=== PATIENT | male | born 1990 | race Caucasian/White ===

== ENCOUNTER 2024-08-06 10:07 | Inpatient (IN) ==
[2024-08-06] MEDS ORDERED: HYDROmorphone INJ 0.5 MG/0.5 ML SYR IV PRN (11:13)
--- NOTE | 2024-08-06 11:16 | XRay Report ---
XR chest 1V portable HISTORY: 34 years-old Male Sepsis COMPARISON: None TECHNIQUE: AP view of the chest FINDINGS: Cardiac silhouette is normal. No pneumothorax or large pleural effusion. Bilateral reticulonodular de nsities with linear peripheral left basilar and bilateral midlung densities. Bones appear grossly int act. IMPRESSION: Findings suggestive of multifocal pneumonia. Follow-up imaging after treatment course rec ommended in order to document resolution. ACT 112: Negative or not required by law. The above report was generated using voice recognition software. It may contain grammatical, syntax o r spelling errors. Electronically signed by: Jaden Romero M.D. 08/06/2024 11:14 AM
[2024-08-06 11:17] LABS: Hematocrit (blood only) 27.3 % (42.0-52.0); Hemoglobin 8.3 g/dl (14.0-18.0); Immature Granulocytes # (auto) 0.27 K/uL (0.01-0.20); Immature Granulocytes % (auto) 1.7 %; Mean Corpuscular Hemoglobin 21.4 pg (25.0-34.0); Mean Corpuscular Volume 70.4 fL (80.0-100.0); Platelet Count 828 K/uL (130-400); RDW Standard Deviation 48.3 fL (36.4-46.3); Red Blood Count 3.88 M/uL (4.70-6.10); White Blood Count 15.98 K/ul (4.8-10.8)
[2024-08-06] MEDS: HYDROmorphone INJ 0.5 MG/0.5 ML SYR IV STA (11:20)
[2024-08-06] MEDS: SODIUM CHLORIDE 0.9% 1,000 ML IV SCH (11:20)
[2024-08-06] MEDS: ONDANSETRON INJ 2 MG/ML 2 ML VIAL IV STA (11:21)
[2024-08-06] MEDS: KETOROLAC TROMETHAMINE 15 MG/ML VIAL IV STA (11:21)
[2024-08-06] MEDS: ACETAMINOPHEN 500 MG TAB PO STA (11:21)
--- NOTE | 2024-08-06 11:21 | Emergency Department Note ---
Impression & Plan Pleuritic chest pain, Hypomagnesemia, Pulmonary emboli, SOB (shortness of breath), Pneumonia, Tachycardia, Anemia ED Provider Note NAME: MARÍA ELENA NEWSOME AGE: 34 SEX: M : 1990 ARRIVES VIA: Ambulance INFORMANT: [Patient] ED PROVIDER(S): [Del Encinas MD] CHIEF COMPLAINT: Shortness of breath, rib pain HISTORY OF PRESENT ILLNESS: Patient is a 34-year-old male who presents to the ER with bilateral rib pain, shortness of breath and fever. The patient is currently at the [facility]. The patient had been admitted to [facility]. He had overdosed and was intubated, he had aspirated. He was found to have pneumonia and recently finished his antibiotics. The patient states that he feels terrible. He has rib pain, he is short of breath, he is coughing. He was noted to have a fever upon arrival at this ED. The patient is an alcoholic. He states he had fallen off the wagon and had too much to drink, this led to the hospitalization at [facility]. PMHx/PSHx/Social Hx: See Below PHYSICAL EXAM: GENERAL: Patient is in moderate distress from pain. HEENT: No acute trauma, normocephalic atraumatic, mucous membranes dry, no nasal congestion. NECK: No stridor, no adenopathy, no meningismus, trachea is midline. LUNGS: Decreased breath sounds on the left with some crackles on the left, the right lung is clear. He has an increased respiratory rate. HEART: Tachycardic, regular rhythm, no murmurs. ABDOMEN: Soft, nontender, no peritonitis. EXTREMITIES: No cyanosis, full range of motion of all the joints without pain or difficulty. NEUROLOGIC: Oriented x 3, no acute motor or sensory deficits, no focal weakness. SKIN: No jaundice, no diaphoresis. Pale. DIFFERENTIAL DIAGNOSIS: Bacteremia or sepsis, pneumonia, PE, viral illness, dehydration, among others. EMERGENCY DEPARTMENT PROCEDURES: MEDICAL DECISION MAKING: There is a moderate leukocytosis, this certainly could be consistent with infection. The patient is anemic with a hemoglobin of 8.3, apparently, his hemoglobin has been running at this low level since his hospitalization at [facility]. Platelet count is quite high at 828. A bandemia is present on the CBC differential. INR is slightly high at 1.3. VBG does not show any acidosis or CO2 retention. No renal failure. Magnesium was low at 1.3. Lactic acid level was elevated consistent with infection and/or dehydration. There were some liver enzyme elevations, the bilirubin was not elevated. Patient appeared to be in a euthyroid state. Urinalysis did not show infection. Respiratory bio fire was negative. Chest x-ray shows a left lung pneumonia. Chest CT showed multifocal pneumonia as well as pulmonary emboli. On exam, the patient was pale, febrile and tachycardic. He had an increased respiratory rate and pain with inspiration. The patient was aggressively managed given his presentation. He was given IV saline, he received 2 L. This should suffice for 30 cc/kg of saline for sepsis protocol based on his actual body weight. The patient's tachycardia improved after the IV saline, he did not become hypotensive. His lactic acid level seemed to be improving. The patient received IV Dilaudid for pain, IV Zofran for nausea. He was given IV magnesium and IV Toradol. He was given IV cefepime as empiric antibiotic coverage. He was given oral Tylenol. He was given a DuoNeb. He was eventually given an IV heparin bolus and placed on a heparin drip. The patient does feel better since his treatment here in the ED. Given his findings, he is in need of a hospital stay. His dyspnea and pleuritic discomfort is secondary to his pneumonia as well as his pulmonary emboli. For now, he does not require a red blood cell transfusion, the hemoglobin will need to be closely followed. I did speak with the patient and case management, the on-call hospitalist was consulted. Prior/Outside records/notes reviewed: None ECG per my interpretation: Indication was tachycardia. The ECG shows a sinus tachycardia with a rate of 126. There is no ST elevation, no PVCs. The QTc is 428. Continuous Cardiac Monitoring per my interpretation: An order was placed for continuous cardiac monitoring. The monitor shows a rate of 129 with sinus tachycardia. Imaging/x-ray results per my interpretation: Chest x-ray shows a left lower lung pneumonia. No pneumothorax. Chronic Medical/Social conditions affecting care: Currently admitted at the [facility]. Care/Management discussed with: Case management, the on-call hospitalist. Level of care consideration(s): After review of the information above and other included data: --I believe the patient requires escalation of care to admission Critical Care Note: I have personally spent 61 minutes of critical care time in the direct management of this patient. This includes bedside care, interpretation of diagnostic studies, and testing, discussion with consultants, patient, and family members, and other required patient management activities. This 61 minutes is in excess of all separately billable procedures. DISPOSITION: Admission Past Med/Surg History Problem List (Updated 08/06/24 @ 17:06 by Del Encinas MD) Anemia (Acute) Tachycardia (Acute) Pneumonia (Acute) SOB (shortness of breath) (Acute) Pulmonary emboli (Acute) Hypomagnesemia (Acute) Pleuritic chest pain (Acute) Pulmonary abscess Hypomagnesemia BECKA (generalized anxiety disorder) Severe sepsis Empyema Cavitary lesion of lung HAP (hospital-acquired pneumonia) Medical History Depression Social History Smoking Status: Current some day smoker Tobacco Type: Cigars Cigarettes Per Day: 1 per week; Hx Alcohol Use: Yes (last drink 07/25, sober before that) Hx Substance Use: No Preferred Language: Lao Communication Ability: Effective Car Filler Required: No Beliefs That Will Affect Care: None Current Living Situation: Alone Feels Safe at Home: Yes Allergies Allergies Allergy/AdvReac Type Severity Reaction Status Date / Time naproxen Allergy Rash Verified 08/06/24 13:57 Home Meds Home Medications Medication Instructions Recorded Confirmed acetaminophen 325 mg tablet 650 mg PO Q6H PRN Pain 08/06/24 08/06/24 (Tylenol) benzonatate 100 mg capsule 100 mg PO TID PRN Cough 08/06/24 08/06/24 calcium carbonate (Calcium 500) 1,000 mg PO TID PRN Gastric 08/06/24 08/06/24 Distress dextromethorphan-guaifenesin 10 10 ml PO Q6H PRN Cough 08/06/24 08/06/24 mg-200 mg/5 mL oral liquid escitalopram oxalate 5 mg tablet 5 mg PO DAILY 08/06/24 08/06/24 lisinopril 2.5 mg tablet 2.5 mg PO DAILY 08/06/24 08/06/24 melatonin 3 mg tablet 3 mg PO HS 08/06/24 08/06/24 metoprolol tartrate 25 mg tablet 12.5 mg PO Q12H 08/06/24 08/06/24 nicotine (polacrilex) 2 mg gum 4 mg buccal Q4H PRN Each Smoking 08/06/24 08/06/24 (Nicorette) Break omeprazole 40 mg capsule,delayed 40 mg PO BID 08/06/24 08/06/24 release oxycodone 5 mg tablet 5 mg PO Q6H PRN Pain 08/06/24 08/06/24 sennosides 8.6 mg tablet (senna) 8.6 mg PO DAILY PRN Constipation 08/06/24 08/06/24 trazodone 50 mg tablet 50 mg PO HS 08/06/24 08/06/24 Results & Data (ED) Vital Signs Vital Signs - 24 hr 08/06/24 10:00 08/06/24 10:00 08/06/24 10:13 Temperature 38.0 C H Temperature Source Oral Pulse Rate 132 H Pulse Rate [Apical] Respiratory Rate 16 Respiratory Effort / Characteristics Non-Labored Spontaneous Non-Labored Spontaneous Respiratory Depth Normal Normal Respiratory Pattern Regular Blood Pressure 133/79 Blood Pressure [Left Radial Artery] Blood Pressure Mean 97 Blood Pressure Mean [Left Radial Artery] Pulse Oximetry 100 97 Oxygen Delivery Method Room Air Room Air Room Air Sepsis Recent Fever Within 48 Hours Yes Sepsis New/Unexplained Change in Mental Status No Sepsis Action Taken by Nursing No Action Required 08/06/24 10:47 08/06/24 10:57 08/06/24 11:00 Temperature Temperature Source Pulse Rate 123 H 128 H Pulse Rate [Apical] 128 H Respiratory Rate 16 16 Respiratory Effort / Characteristics Non-Labored Spontaneous Respiratory Depth Normal Respiratory Pattern Blood Pressure Blood Pressure [Left Radial Artery] 97/80 L Blood Pressure Mean Blood Pressure Mean [Left Radial Artery] 85 Pulse Oximetry 98 98 Oxygen Delivery Method Room Air Room Air Sepsis Recent Fever Within 48 Hours Sepsis New/Unexplained Change in Mental Status Sepsis Action Taken by Nursing 08/06/24 11:15 08/06/24 11:30 08/06/24 11:45 Temperature Temperature Source Pulse Rate Pulse Rate [Apical] 124 H 116 H 116 H Respiratory Rate 22 24 20 Respiratory Effort / Characteristics Non-Labored Spontaneous Non-Labored Spontaneous Non-Labored Spontaneous Respiratory Depth Normal Normal Normal Respiratory Pattern Regular Blood Pressure Blood Pressure [Left Radial Artery] 114/91 100/75 110/72 Blood Pressure Mean Blood Pressure Mean [Left Radial Artery] 98 83 84 Pulse Oximetry 100 97 96 Oxygen Delivery Method Room Air Room Air Room Air Sepsis Recent Fever Within 48 Hours Sepsis New/Unexplained Change in Mental Status Sepsis Action Taken by Nursing 08/06/24 12:00 08/06/24 12:30 08/06/24 12:45 Temperature Temperature Source Pulse Rate Pulse Rate [Apical] 119 H 117 H 129 H Respiratory Rate 20 20 22 Respiratory Effort / Characteristics Non-Labored Spontaneous Non-Labored Spontaneous Non-Labored Spontaneous Respiratory Depth Normal Normal Normal Respiratory Pattern Regular Blood Pressure Blood Pressure [Left Radial Artery] 114/74 100/71 101/67 Blood Pressure Mean Blood Pressure Mean [Left Radial Artery] 87 80 78 Pulse Oximetry 96 95 98 Oxygen Delivery Method Room Air Room Air Room Air Sepsis Recent Fever Within 48 Hours Sepsis New/Unexplained Change in Mental Status Sepsis Action Taken by Nursing 08/06/24 13:00 08/06/24 14:00 Temperature 37.1 C Temperature Source Oral Pulse Rate Pulse Rate [Apical] 122 H Respiratory Rate 22 Respiratory Effort / Characteristics Non-Labored Spontaneous Respiratory Depth Shallow Respiratory Pattern Regular Blood Pressure Blood Pressure [Left Radial Artery] 95/65 L Blood Pressure Mean Blood Pressure Mean [Left Radial Artery] 75 Pulse Oximetry 99 Oxygen Delivery Method Room Air Sepsis Recent Fever Within 48 Hours Sepsis New/Unexplained Change in Mental Status Sepsis Action Taken by Usp Medications Current Medication List: was personally reviewed by me Laboratory Data Attestation: I reviewed the patient's lab results. 08/06/24 10:31 08/06/24 12:13 Lab Results 08/06/24 08/06/24 08/06/24 Range/Units 10:31 11:15 11:25 WBC 15.98 H (4.8-10.8) K/ul RBC 3.88 L (4.70-6.10) M/uL Hgb 8.3 L (14.0-18.0) g/dl Hct 27.3 L (42.0-52.0) % MCV 70.4 L (80.0-100.0) fL MCH 21.4 L (25.0-34.0) pg MCHC 30.4 L (32.0-36.0) g/dL RDW Std Deviation 48.3 H (36.4-46.3) fL RDW Coeff of Betsy 19.8 H (11.5-14.5) % Plt Count 828 H (130-400) K/uL MPV 9.2 L (9.4-12.4) fL Immature Gran % (Auto) 1.7 % Neut % (Auto) 83.7 % Lymph % (Auto) 5.9 % Maries % (Auto) 7.7 % Eos % (Auto) 0.6 % Baso % (Auto) 0.4 % Neut # (Auto) 13.37 H (1.40-6.50) K/uL Lymph # (Auto) 0.95 L (1.20-3.40) K/uL Maries # (Auto) 1.23 H (0.11-0.59) K/uL Eos # (Auto) 0.10 (0.00-0.50) K/uL Baso # (Auto) 0.06 (0.00-0.20) K/uL Immature Gran # (Auto) 0.27 H (0.01-0.20) K/uL PT Cancelled INR Cancelled APTT Cancelled PTT Ratio Cancelled VBG pH 7.48 H (7.36-7.41) VBG pCO2 30 L (38-50) mmHg VBG pO2 < 20 mmHg VBG HCO3 22 mmol/L VBG O2 Saturation < 60.0 % VBG Base Excess -0.8 mEq/L Sodium 133 L (136-145) mmol/L Potassium TNP Chloride 100 (98-107) mmol/L Carbon Dioxide 23 (21-32) mmol/L Anion Gap 10 (3-11) BUN 10 (6-23) mg/dl Creatinine 0.78 (0.6-1.4) mg/dl Est Cr Clr Drug Dosing 113.9 ml/min eGFR 118.53 BUN/Creatinine Ratio 12.8 (10-20) Glucose 124 H (70-99(Fasting)) mg/dl Lactate 3.0 H* (0.4-2.0) mmol/L Calcium 9.1 (8.6-10.3) mg/dl Magnesium 1.3 L (1.7-2.4) mg/dl Total Bilirubin 0.5 (0.2-1.0) mg/dl Direct Bilirubin TNP AST TNP ALT 99 H (7-52) U/L Alkaline Phosphatase 139 H (34-104) U/L Troponin I High Sens 7.5 (0-20) pg/ml Total Protein 8.3 (6.0-8.3) gm/dl Albumin 3.5 (3.4-5.0) gm/dl Procalcitonin 0.18 (0-0.5) ng/ml Adenovirus (PCR) Not Detected (NotDetected) B. pertussis DNA (PCR) Not Detected (NotDetected) B.parapertussis DNA PCR Not Detected (NotDetected) C. pneumoniae DNA (PCR) Not Detected (NotDetected) Coronavirus OC43 (PCR) Not Detected (NotDetected) Coronavirus HKU1 (PCR) Not Detected (NotDetected) Coronavirus 229E (PCR) Not Detected (NotDetected) SARS-CoV-2 (PCR) Not Detected (NotDetected) Coronavirus NL63 (PCR) Not Detected (NotDetected) Human Metapneumovir PCR Not Detected (NotDetected) Influenza Type A (PCR) Not Detected (NotDetected) Influenza Type B (PCR) Not Detected (NotDetected) M. pneumoniae (PCR) Not Detected (NotDetected) Parainfluenza 1 (PCR) Not Detected (NotDetected) Parainfluenza 2 (PCR) Not Detected (NotDetected) Parainfluenza 3 (PCR) Not Detected (NotDetected) Parainfluenza 4 (PCR) Not Detected (NotDetected) RSV (PCR) Not Detected (NotDetected) Entero/Rhino (PCR) Not Detected (NotDetected) Blood Type Blood Type Recheck Antibody Screen 08/06/24 08/06/24 08/06/24 Range/Units 12:13 12:14 13:08 WBC (4.8-10.8) K/ul RBC (4.70-6.10) M/uL Hgb (14.0-18.0) g/dl Hct (42.0-52.0) % MCV (80.0-100.0) fL MCH (25.0-34.0) pg MCHC (32.0-36.0) g/dL RDW Std Deviation (36.4-46.3) fL RDW Coeff of Betsy (11.5-14.5) % Plt Count (130-400) K/uL MPV (9.4-12.4) fL Immature Gran % (Auto) % Neut % (Auto) % Lymph % (Auto) % Maries % (Auto) % Eos % (Auto) % Baso % (Auto) % Neut # (Auto) (1.40-6.50) K/uL Lymph # (Auto) (1.20-3.40) K/uL Maries # (Auto) (0.11-0.59) K/uL Eos # (Auto) (0.00-0.50) K/uL Baso # (Auto) (0.00-0.20) K/uL Immature Gran # (Auto) (0.01-0.20) K/uL PT 13.5 H INR 1.3 H APTT 25 PTT Ratio 0.9 VBG pH (7.36-7.41) VBG pCO2 (38-50) mmHg VBG pO2 mmHg VBG HCO3 mmol/L VBG O2 Saturation % VBG Base Excess mEq/L Sodium (136-145) mmol/L Potassium 4.1 Chloride (98-107) mmol/L Carbon Dioxide (21-32) mmol/L Anion Gap (3-11) BUN (6-23) mg/dl Creatinine (0.6-1.4) mg/dl Est Cr Clr Drug Dosing ml/min eGFR BUN/Creatinine Ratio (10-20) Glucose (70-99(Fasting)) mg/dl Lactate (0.4-2.0) mmol/L Calcium (8.6-10.3) mg/dl Magnesium (1.7-2.4) mg/dl Total Bilirubin (0.2-1.0) mg/dl Direct Bilirubin 0.2 AST 51 H ALT (7-52) U/L Alkaline Phosphatase (34-104) U/L Troponin I High Sens (0-20) pg/ml Total Protein (6.0-8.3) gm/dl Albumin (3.4-5.0) gm/dl Procalcitonin (0-0.5) ng/ml Adenovirus (PCR) (NotDetected) B. pertussis DNA (PCR) (NotDetected) B.parapertussis DNA PCR (NotDetected) C. pneumoniae DNA (PCR) (NotDetected) Coronavirus OC43 (PCR) (NotDetected) Coronavirus HKU1 (PCR) (NotDetected) Coronavirus 229E (PCR) (NotDetected) SARS-CoV-2 (PCR) (NotDetected) Coronavirus NL63 (PCR) (NotDetected) Human Metapneumovir PCR (NotDetected) Influenza Type A (PCR) (NotDetected) Influenza Type B (PCR) (NotDetected) M. pneumoniae (PCR) (NotDetected) Parainfluenza 1 (PCR) (NotDetected) Parainfluenza 2 (PCR) (NotDetected) Parainfluenza 3 (PCR) (NotDetected) Parainfluenza 4 (PCR) (NotDetected) RSV (PCR) (NotDetected) Entero/Rhino (PCR) (NotDetected) Blood Type A Positive Blood Type Recheck A Positive Antibody Screen NEGATIVE 08/06/24 Range/Units 13:12 WBC (4.8-10.8) K/ul RBC (4.70-6.10) M/uL Hgb (14.0-18.0) g/dl Hct (42.0-52.0) % MCV (80.0-100.0) fL MCH (25.0-34.0) pg MCHC (32.0-36.0) g/dL RDW Std Deviation (36.4-46.3) fL RDW Coeff of Betsy (11.5-14.5) % Plt Count (130-400) K/uL MPV (9.4-12.4) fL Immature Gran % (Auto) % Neut % (Auto) % Lymph % (Auto) % Maries % (Auto) % Eos % (Auto) % Baso % (Auto) % Neut # (Auto) (1.40-6.50) K/uL Lymph # (Auto) (1.20-3.40) K/uL Maries # (Auto) (0.11-0.59) K/uL Eos # (Auto) (0.00-0.50) K/uL Baso # (Auto) (0.00-0.20) K/uL Immature Gran # (Auto) (0.01-0.20) K/uL PT INR APTT PTT Ratio VBG pH (7.36-7.41) VBG pCO2 (38-50) mmHg VBG pO2 mmHg VBG HCO3 mmol/L VBG O2 Saturation % VBG Base Excess mEq/L Sodium (136-145) mmol/L Potassium Chloride (98-107) mmol/L Carbon Dioxide (21-32) mmol/L Anion Gap (3-11) BUN (6-23) mg/dl Creatinine (0.6-1.4) mg/dl Est Cr Clr Drug Dosing ml/min eGFR BUN/Creatinine Ratio (10-20) Glucose (70-99(Fasting)) mg/dl Lactate 2.3 H* (0.4-2.0) mmol/L Calcium (8.6-10.3) mg/dl Magnesium (1.7-2.4) mg/dl Total Bilirubin (0.2-1.0) mg/dl Direct Bilirubin AST ALT (7-52) U/L Alkaline Phosphatase (34-104) U/L Troponin I High Sens (0-20) pg/ml Total Protein (6.0-8.3) gm/dl Albumin (3.4-5.0) gm/dl Procalcitonin (0-0.5) ng/ml Adenovirus (PCR) (NotDetected) B. pertussis DNA (PCR) (NotDetected) B.parapertussis DNA PCR (NotDetected) C. pneumoniae DNA (PCR) (NotDetected) Coronavirus OC43 (PCR) (NotDetected) Coronavirus HKU1 (PCR) (NotDetected) Coronavirus 229E (PCR) (NotDetected) SARS-CoV-2 (PCR) (NotDetected) Coronavirus NL63 (PCR) (NotDetected) Human Metapneumovir PCR (NotDetected) Influenza Type A (PCR) (NotDetected) Influenza Type B (PCR) (NotDetected) M. pneumoniae (PCR) (NotDetected) Parainfluenza 1 (PCR) (NotDetected) Parainfluenza 2 (PCR) (NotDetected) Parainfluenza 3 (PCR) (NotDetected) Parainfluenza 4 (PCR) (NotDetected) RSV (PCR) (NotDetected) Entero/Rhino (PCR) (NotDetected) Blood Type Blood Type Recheck Antibody Screen Administered Medications Benzonatate (Benzonatate 100 Mg Capsule) 100 mg PO TID PRN PRN Reason: Cough Stop: 09/05/24 15:46 Last Admin: 08/06/24 16:13 Dose: 100 mg Documented By: DUARTE Escitalopram Oxalate (Escitalopram Oxalate 10 Mg Tab) 5 mg PO DAILY JF Stop: 09/06/24 08:59 Last Admin: 08/06/24 16:13 Dose: 5 mg Documented By: DUARTE Piperacillin Sod/Tazobactam Sod (Zosyn) 4.5 gm in 100 mls @ 25 mls/hr IV NOW ONE; Protocol Stop: 08/06/24 18:14 Last Admin: 08/06/24 14:43 Dose: 25 mls/hr Documented By: RUSH Heparin Sodium/Dextrose (Heparin 59211 Unit/500 Ml D5w) 25,000 units in 500 mls @ 23 mls/hr IV .[id number] JF; Protocol Stop: 09/05/24 16:14 Last Admin: 08/06/24 16:49 Dose: 1,150 units/hr, 23 mls/hr Documented By: LATISHA Co-signed By: AM Metoprolol Tartrate (Metoprolol Tartrate 25 Mg Tab) 12.5 mg PO Q12H [facility] Stop: 09/05/24 15:46 Last Admin: 08/06/24 16:14 Dose: 12.5 mg Documented By: DUARTE Discontinued Medications Acetaminophen (Acetaminophen 500 Mg Tab) 1,000 mg PO NOW STA Stop: 08/06/24 10:59 Last Admin: 08/06/24 11:21 Dose: 1,000 mg Documented By: JEFFERSON Albuterol (Albut/Ipratrop 3mg/0.5mg Neb 3 Ml Vial) 3 ml NEB NOW STA; Protocol Stop: 08/06/24 10:57 Last Admin: 08/06/24 11:28 Dose: 3 ml Documented By: JEFFERSON Heparin Sodium (Porcine) (Heparin Sod (Porcine) 1000 Unit/Ml) 1 units IV NOW ONE Stop: 08/06/24 13:37 Last Admin: 08/06/24 13:52 Dose: 5,000 units Documented By: JEFFERSON Co-signed By: GILBERTO Heparin Sodium/Dextrose (Heparin Iv Adult Wt-Based Standard W/ Initial Bolus Protocol) 1 each IV NOW STA; Protocol Stop: 08/06/24 13:21 Last Admin: 08/06/24 13:56 Dose: Not Given Documented By: JEFFERSON Heparin Sodium/Dextrose (Heparin Iv Adult Wt-Based Standard *No* Initial Bolus Protocol) 1 each IV ONE STA; Protocol Stop: 08/06/24 15:58 Last Admin: 08/06/24 16:53 Dose: Not Given Documented By: LATISHA Hydromorphone HCl (Hydromorphone Inj 0.5 Mg/0.5 Ml Syr) 0.5 mg IV NOW STA Stop: 08/06/24 11:14 Last Admin: 08/06/24 11:20 Dose: 0.5 mg Documented By: JEFFERSON Sodium Chloride (Nss) 1,000 mls @ 999 mls/hr IV .Q1H1M JF Stop: 08/06/24 12:00 Last Infusion: 08/06/24 12:24 Dose: Infused Documented By: Admin: 08/06/24 11:20 Dose: 999 mls/hr Documented By: JEFFERSON Cefepime HCl (Maxipime 2000mg) 2,000 mg in 20 mls @ 5 mls/min IV NOW STA; Protocol Stop: 08/06/24 10:59 Last Admin: 08/06/24 11:27 Dose: 5 mls/min Documented By: JEFFERSON Magnesium Sulfate/Dextrose (Magnesium Sulfate / D5w) 1 gm in 100 mls @ 100 mls/hr IV Q1H JF Stop: 08/06/24 13:44 Last Infusion: 08/06/24 14:43 Dose: Infused Documented By: Admin: 08/06/24 13:20 Dose: 100 mls/hr Documented By: Infusion: 08/06/24 13:20 Dose: Infused Documented By: Admin: 08/06/24 12:26 Dose: 100 mls/hr Documented By: JEFFERSON Sodium Chloride (Nss) 500 mls @ 999 mls/hr IV .Q31M ONE Stop: 08/06/24 13:12 Last Infusion: 08/06/24 14:43 Dose: Infused Documented By: Admin: 08/06/24 13:16 Dose: 999 mls/hr Documented By: JEFFERSON Heparin Sodium/Dextrose (Heparin 09059 Unit/500 Ml D5w) 25,000 units in 500 mls @ 23 mls/hr IV .[id number] [facility]; Protocol Stop: 09/05/24 13:44 Last Titration: 08/06/24 16:16 Dose: Infused Documented By: DUARTE Co-signed By: NADYA Admin: 08/06/24 13:53 Dose: 1,150 units/hr, 23 mls/hr Documented By: JEFFERSON Co-signed By: GILBERTO Sodium Chloride (Nss) 500 mls @ 999 mls/hr IV .Q31M ONE Stop: 08/06/24 14:10 Last Infusion: 08/06/24 14:43 Dose: Infused Documented By: Admin: 08/06/24 13:58 Dose: 999 mls/hr Documented By: JEFFERSON Ioversol (Optiray 320 125ml) 119 ml IV ONCE ONE Stop: 08/06/24 12:17 Last Admin: 08/06/24 12:17 Dose: 119 ml Documented By: ANTON Ioversol (Optiray 320 100ml) 93 ml IV ONCE ONE Stop: 08/06/24 16:32 Last Admin: 08/06/24 16:31 Dose: 93 ml Documented By: BEVERLY Ketorolac Tromethamine (Ketorolac Tromethamine 15 Mg/Ml Vial) 15 mg IV NOW STA Stop: 08/06/24 11:14 Last Admin: 08/06/24 11:21 Dose: 15 mg Documented By: JEFFERSON Miscellaneous Information (Patient's Allergy Info Needs Entered) 1 each N/A Q30M STA Stop: 08/06/24 13:51 Last Admin: 08/06/24 13:57 Dose: Not Given Documented By: JEFFERSON Ondansetron HCl (Ondansetron Inj 2 Mg/Ml 2 Ml Vial) 4 mg IV NOW STA Stop: 08/06/24 11:14 Last Admin: 08/06/24 11:21 Dose: 4 mg Documented By: JEFFERSON Imaging Data Radiologist's Impression: Chest X-Ray 08/06/24 10:57 XR chest 1V portable HISTORY: 34 years-old Male Sepsis COMPARISON: None TECHNIQUE: AP view of the chest FINDINGS: Cardiac silhouette is normal. No pneumothorax or large pleural effusion. Bilateral reticulonodular densities with linear peripheral left basilar and bilateral midlung densities. Bones appear grossly intact. IMPRESSION: Findings suggestive of multifocal pneumonia. Follow-up imaging after treatment course recommended in order to document resolution. ACT 112: Negative or not required by law. The above report was generated using voice recognition software. It may contain grammatical, syntax or spelling errors. Electronically signed by: Jaden Romero M.D. 08/06/2024 11:14 AM Chest CTA 08/06/24 11:13 CT angio chest PE protocol CT DOSE: 686.71 mGy.cm HISTORY: 34 years-old Male with PE. Acute shortness of breath TECHNIQUE: Multiple CTA images of the chest were obtained after the intravenous administration of 119 ml Optiray. Coronal and sagittal MIPS were obtained from the axial data set and were submitted for review. All measurements were obtained according to NASCET criteria. A dose lowering technique was utilized adhering to the principles of ALARA. COMPARISON: None. FINDINGS: CTA: Limited evaluation of the pulmonary arterial tree secondary to contrast bolus timing and respiratory motion artifact. There are several right-sided age- indeterminate segmental and subsegmental pulmonary emboli noted which are most pronounced in the right upper and lower lobes. No central pulmonary emboli are seen. Normal thoracic aorta.Heart size is normal. CT CHEST: No significant mediastinal and right hilar lymphadenopathy includes an AP window lymph node on image 117 measuring 2.6 x 1.3 cm. No axillary lymphadenopathy identified. Small loculated left pleural effusion with associated pleural thickening. Extensive and diffuse reticulonodular opacities with several thick- walled cavitary foci including a 4.4 cm lesion within the right upper lobe on image 119 and a 6.7 cm lesion within the left lower lobe on image 76 demonstrating air-fluid level. No acute upper abdominal abnormality. Unremarkable soft tissues. No acute fracture. No acute fracture. No destructive bone lesions. IMPRESSION: 1. Segmental and subsegmental pulmonary emboli within the right lung. 2. Extensive bilateral pulmonary opacities with thick-walled cavitations as above within both the upper and lower lung zones. Dominant large cavitation within the basal left lower lobe with air-fluid level is suggestive of an abscess. Findings are likely infectious or inflammatory with necrotic pneumonia. Pneumonia with septic emboli versus metastatic disease are additional considerations. Follow-up with pulmonology and CT imaging is needed. 3. Mediastinal and hilar lymphadenopathy. 4. Small loculated left-sided pleural effusion with pleural thickening may represent a developing empyema. ACT 112: Negative or not required by law. The above report was generated using voice recognition software. It may contain grammatical, syntax or spelling errors. Electronically signed by: Jaden Romero M.D. 08/06/2024 1:02 PM Discharge Plan Visit Data Chief Complaint: Shortness of Breath/Dyspnea ED Provider: Del Encinas Discharge Problem: Pleuritic chest pain, Hypomagnesemia, Pulmonary emboli, SOB (shortness of breath), Pneumonia, Tachycardia, Anemia Patient Disposition: Admitted As Inpatient Condition: Serious Discharge Instructions Interventions: ED Discharge Assessment Last Done: 08/06/24 14:56 Discharge Problem: Pulmonary emboli Qualifiers: Pulmonary embolism type: unspecified Chronicity: acute Acute cor pulmonale presence: unspecified Qualified Code(s): I26.99 - Other pulmonary embolism without acute cor pulmonale Pneumonia Qualifiers: Pneumonia type: due to unspecified organism Laterality: right Lung location: l ower lobe of lung Qualified Code(s): J18.9 - Pneumonia, unspecified organism Anemia Qualifiers: Anemia type: unspecified type Qualified Code(s): D64.9 - Anemia, unspecified
[2024-08-06] MEDS: CEFEPIME 2000MG 2,000 MG/20 ML SYR IV STA (11:27)
[2024-08-06] MEDS: ALBUT/IPRATROP 3MG/0.5MG NEB 3 ML VIAL NEB STA (11:28)
[2024-08-06 11:36] LABS: Base Excess VBG -0.8 mEq/L; HCO3 VBG 22 mmol/L; Oxygen Saturation VBG < 60.0 %; PCO2 VBG 30 mmHg (38-50); PO2 VBG < 20 mmHg; pH VBG 7.48 (7.36-7.41)
[2024-08-06 11:44] LABS: Alanine Aminotransferase 99 U/L (7-52); Alkaline Phosphatase 139 U/L (34-104); Anion Gap 10 (3-11); Bilirubin,Total 0.5 mg/dl (0.2-1.0); Blood Urea Nitrogen 10 mg/dl (6-23); Calcium 9.1 mg/dl (8.6-10.3); Carbon Dioxide 23 mmol/L (21-32); Chloride 100 mmol/L (98-107); Creatinine Clr Calc Pharmacy 113.9 ml/min; Glucose 124 mg/dl (70-99(Fasting)); Magnesium 1.3 mg/dl (1.7-2.4); Sodium 133 mmol/L (136-145); Total Protein 8.3 gm/dl (6.0-8.3)
[2024-08-06] MEDS: OPTIRAY 320 125ml IV ONE (12:17)
[2024-08-06] MEDS: MAGNESIUM SULFATE / D5W 1 GM/100 ML BAG IV SCH ×2 (12:26→19:02)
[2024-08-06 12:50] LABS: Chlamydia pneumoniae PCR Not Detected (NotDetected); Coronavirus 229E PCR Not Detected (NotDetected); Coronavirus CoV-2 (COVID19)PCR Not Detected (NotDetected); Coronavirus HKU1 PCR Not Detected (NotDetected); Coronavirus NL63 PCR Not Detected (NotDetected); Coronavirus OC43PCR Not Detected (NotDetected); Human Metapneumovirus PCR Not Detected (NotDetected); Parainfluenza Virus 1 PCR Not Detected (NotDetected); Parainfluenza Virus 2 PCR Not Detected (NotDetected); Parainfluenza Virus 3 PCR Not Detected (NotDetected); Parainfluenza Virus 4 PCR Not Detected (NotDetected); Respiratory Syncytial VirusPCR Not Detected (NotDetected); Rhinovirus/Enterovirus PCR Not Detected (NotDetected)
[2024-08-06] MEDS ORDERED: VANCOMYCIN CONSULT ACTIVE PRN ×2 (13:00→13:42)
--- NOTE | 2024-08-06 13:04 | CT Scan Report ---
CT angio chest PE protocol CT DOSE: 686.71 mGy.cm HISTORY: 34 years-old Male with PE. Acute shortness of breath TECHNIQUE: Multiple CTA images of the chest were obtained after the intravenous administration of 119 ml Optiray. Coronal and sagittal MIPS were obtained from the axial data set and were submitted for review. All measurements were obtained according to NASCET criteria. A dose lowering technique was u tilized adhering to the principles of ALARA. COMPARISON: None. FINDINGS: CTA: Limited evaluation of the pulmonary arterial tree secondary to contrast bolus timing and respiratory motion artifact. There are several right-sided age-indeterminate segmental and subsegmental pulmonary emboli noted which are most pronounced in the right upper and lower lobes. No central pulmonary embo li are seen. Normal thoracic aorta.Heart size is normal. CT CHEST: No significant mediastinal and right hilar lymphadenopathy includes an AP window lymph node on image 117 measuring 2.6 x 1.3 cm. No axillary lymphadenopathy identified. Small loculated left pleural effu lux with associated pleural thickening. Extensive and diffuse reticulonodular opacities with several thick-walled cavitary foci including a 4.4 cm lesion within the right upper lobe on image 119 and a 6.7 cm lesion within the left lower lobe on image 76 demonstrating air-fluid level. No acute upper abdominal abnormality. Unremarkable soft tissues. No acute fracture. No acute fracture . No destructive bone lesions. IMPRESSION: 1. Segmental and subsegmental pulmonary emboli within the right lung. 2. Extensive bilateral pulmonary opacities with thick-walled cavitations as above within both the upp er and lower lung zones. Dominant large cavitation within the basal left lower lobe with air-fluid le pardeep is suggestive of an abscess. Findings are likely infectious or inflammatory with necrotic pneumon ia. Pneumonia with septic emboli versus metastatic disease are additional considerations. Follow-up w ith pulmonology and CT imaging is needed. 3. Mediastinal and hilar lymphadenopathy. 4. Small loculated left-sided pleural effusion with pleural thickening may represent a developing emp yema. ACT 112: Negative or not required by law. The above report was generated using voice recognition software. It may contain grammatical, syntax o r spelling errors. Electronically signed by: Jaden Romero M.D. 08/06/2024 1:02 PM
[2024-08-06 13:08] LABS: Potassium 4.1 mmol/L (3.5-5.1)
[2024-08-06 13:12] LABS: INR 1.3 (0.9-1.1); Partial Thromboplastin Time 25 Seconds (21-31); Prothrombin Time 13.5 Seconds (9.0-12.0)
[2024-08-06] MEDS: SODIUM CHLORIDE 0.9% 500 ML IV ONE ×2 (13:16→13:58)
[2024-08-06] MEDS: HEPARIN SOD (PORCINE) 1000 UNIT/ML IV ONE ×2 (13:52→21:44)
[2024-08-06] MEDS: HEPARIN 25000 UNIT/500 ML D5W 25,000 UNITS/500 ML BAG IV SCH ×2 (13:53→16:49)
[2024-08-06] MEDS: Heparin IV Adult Wt-Based Standard w/ INITIAL Bolus Protocol IV STA (13:56)
--- NOTE | 2024-08-06 14:34 | History & Physical Report ---
Date of Service August 06, 2024 Assessment & Plan (1) Severe sepsis: (2) Hypomagnesemia: (3) Depression: (4) BECKA (generalized anxiety disorder): (5) Empyema: (6) Cavitary lesion of lung: (7) HAP (hospital-acquired pneumonia): Plan 34 yo male with pmhx of severe BECKA/depression c/b recurrent suicidal ideations, rheumatoid arthritis, hx of external hydrocephalus, hx of alcohol use disorder (in early remission, last early July) who presents for fevers, SOB and chills 2/2 severe sepsis with septic emboli/lung abscesses. #Severe Sepsis #HAP #Lung Abscess w/ Cavitary Lesions #R/o Empyema #R/o Septic Emboli #R/o Infective Endocarditis -patient has fever, tachycardia, tachypnea, and leukocytosis with elevated LA suggestive of severe sepsis -lung imaging concerning for significant for numerous cavitary lesions w/ concern for lung abscess and potential septic emboli -unable to do Hernandez criteria at his time due cultures just drawn, does have 2 minor criteria with splinter hemorrhages and fever -likely 2/2 aspiration pneumonia from recent intubation now worsening, has splinter hemorrhages on exam concerning for potential infectious endocarditis Plan: -pulmonary consult, appreciate recs -broaden abx to vanc/zosyn, get additional blood culture for 3 cultures total, MRSA swab ordered, sputum culture ordered, IS and flutter valve ordered -continue fluid resuscitation -CT abdomen/pelvis and TTE ordered for septic emboli workup -check TB, aspergillus, coccidioides given concern for cavitary lung disease, lower concern at this time -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 -ID consult in AM, 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 need batch unloader 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 -trend troponin, lactic acid #Right Segmental/Subsegmental PE -PESI score of 106 points making patient high risk PE -segmental and subsegmental PEs in right lung -not requiring oxygen Plan: -check BNP -f/u echo for evidence of right heart strain #Subacute HFmid EF (EF 50%) -likely in setting of alcohol use and methadone use (although patient states one time event) Plan: -f/u echo results -check A1c, lipids, TSH for risk stratifcation -continue metoprolol, hold lisinopril for now given severe sepsis #Gamma Gap -check HIV/Hep C, has risk factors given methadone overdose #Severe BECKA/MDD #Hx of Suicidal Ideation -patient denies suicidial/homicidal ideation at this time -appears anxious but not decompensated Plan: -low threshold for psychiatric consult and sitter -continue home medications #Hypomagnesemia -replenish #Rheumatoid Arthritis -f/u outpatient I spent a total of 90 minutes in direct patient care, including [id number] time with the patient and/or family, reviewing medical records, ordering and reviewing diagnostic tests, and coordinating care with other healthcare providers. This time includes: history taking, physical examination, medical decision making, counseling, ECG interpretation, imaging interpretation, lab interpretation, orders, and education, excluding time spent in the performance of separately billed services. History of Present Illness Chief Complaint: -fevers, SOB Primary Care Provider: Alicia Marcano 34 yo male with pmhx of severe BECKA/depression c/b recurrent suicidal ideations, rheumatoid arthritis, hx of external hydrocephalus, hx of alcohol use disorder (in early remission, last early July) who presents for fevers, SOB and chills. Had recent admission (discharged 08/05/2024 from [facility]) for methadone overdose c/b intubation/acute HFmidEF (EF 50%)/shock liver/rhabdomyolysis/hypovolemic shock. Was also involuntary hold at [facility] with 1 to 1 sitter recent admission. Also had acute blood loss anemia (EGD negative on 07/2024, likely chronic iron loss). Was then transferred to the [facility] for intensive inpatient psychiatric treatment on 08/05/2024. Vitals at time of discharge on 08/05/2024 127/78, 101 bpm, 18 rpm, temperature of 99F. Patient seen and examined at bedside. Over past 24 hours has had chills, fevers, shortness of breath, and severe chest pain. States he feels like he is extremely ill. He states the chest pains have been present for several days, but that they were not treated at other facilities. States he would like to go to alcohol rehab after the [facility]. Denies any current drug use. Denies any IV drug use in the past. Current tobacco use, alcohol use disorder in early remission, recent methadone overdose but denies drug use, full code (discussed with patient. Allergies Allergy/AdvReac Type Severity Reaction Status Date / Time naproxen Allergy Rash Verified 08/06/24 13:57 Home Medications Medication Instructions Recorded Confirmed Type acetaminophen 325 mg tablet 650 mg PO Q6H PRN Pain 08/06/24 08/06/24 History (Tylenol) benzonatate 100 mg capsule 100 mg PO TID PRN Cough 08/06/24 08/06/24 History calcium carbonate (Calcium 500) 1,000 mg PO TID PRN Gastric 08/06/24 08/06/24 History Distress dextromethorphan-guaifenesin 10 10 ml PO Q6H PRN Cough 08/06/24 08/06/24 History mg-200 mg/5 mL oral liquid escitalopram oxalate 5 mg tablet 5 mg PO DAILY 08/06/24 08/06/24 History lisinopril 2.5 mg tablet 2.5 mg PO DAILY 08/06/24 08/06/24 History melatonin 3 mg tablet 3 mg PO HS 08/06/24 08/06/24 History metoprolol tartrate 25 mg tablet 12.5 mg PO Q12H 08/06/24 08/06/24 History nicotine (polacrilex) 2 mg gum 4 mg buccal Q4H PRN Each Smoking 08/06/24 08/06/24 History (Nicorette) Break omeprazole 40 mg capsule,delayed 40 mg PO BID 08/06/24 08/06/24 History release oxycodone 5 mg tablet 5 mg PO Q6H PRN Pain 08/06/24 08/06/24 History sennosides 8.6 mg tablet (senna) 8.6 mg PO DAILY PRN Constipation 08/06/24 08/06/24 History trazodone 50 mg tablet 50 mg PO HS 08/06/24 08/06/24 History Past Med/Surg History Problem List (Updated 08/06/24 @ 15:16 by Pawan Maldonado MD) Pulmonary abscess Hypomagnesemia Depression BECKA (generalized anxiety disorder) Severe sepsis Empyema Cavitary lesion of lung HAP (hospital-acquired pneumonia) Social History Smoking Status: Light tobacco smoker Tobacco Type: Cigars Feels Safe at Home: Yes Review of Systems Review of Systems: CONSTITUTIONAL: fevers, chills, sweats EYES: Patient denies any visual symptoms. EARS, NOSE, AND THROAT: No difficulties with hearing. No symptoms of rhinitis or sore throat. CARDIOVASCULAR: chest pain RESPIRATORY: SOB GI: No nausea, vomiting, diarrhea, constipation, abdominal pain, hematochezia or melena. : No urinary hesitancy or dribbling. No nocturia or urinary frequency. No abnormal urethral discharge. MUSCULOSKELETAL: No myalgias or arthralgias. NEUROLOGIC: No chronic headaches, no seizures. Patient denies numbness, tingling or weakness. PSYCHIATRIC: anxiety/depression ENDOCRINE: No excessive urination or excessive thirst. DERMATOLOGIC: Patient denies any rashes or skin changes. Physical Exam Physical Exam: Gen: A&O 3 NAD, dyspneic HEENT: NCAT, EOMI, not icteric. External ears normal. No rhinorrhea. Moist mucous membranes. No johnson spots Neck: Supple, full range of motion, no observable masses, No meningeal sign. Lungs: rhonchi mildly throughout lung baum CV: tachycardic, regular Abdomen: Soft, nondistended, No rebound tenderness. MSK: splinter hemorrhages noted on left 3rd and fourth digits , no obvious Osler nodes noted Skin: No rashes, petechiae, lesions. Normal color per patient. Neuro: Normal Gait, Grossly intact. Psych: appears anxious Results & Data Results & Data Vital Signs (Past 12 Hours) Vital Signs Temp Pulse Pulse Resp BP BP Pulse Ox 08/06/24 13:00 122 H 22 95/65 L 99 08/06/24 12:45 129 H 22 101/67 98 08/06/24 12:30 117 H 20 100/71 95 08/06/24 12:00 119 H 20 114/74 96 08/06/24 11:45 116 H 20 110/72 96 08/06/24 11:30 116 H 24 100/75 97 08/06/24 11:15 124 H 22 114/91 100 08/06/24 11:00 128 H 16 97/80 L 98 08/06/24 10:57 128 H 16 98 08/06/24 10:47 123 H 08/06/24 10:13 38.0 C H 132 H 16 133/79 97 08/06/24 10:00 100 08/06/24 10:00 O2 Del Method 08/06/24 13:00 Room Air 08/06/24 12:45 Room Air 08/06/24 12:30 Room Air 08/06/24 12:00 Room Air 08/06/24 11:45 Room Air 08/06/24 11:30 Room Air 08/06/24 11:15 Room Air 08/06/24 11:00 Room Air 08/06/24 10:57 Room Air 08/06/24 10:47 08/06/24 10:13 Room Air 08/06/24 10:00 Room Air 08/06/24 10:00 Room Air Laboratory Results -personally reviewed, leukocytosis of 16 with tachycardia/tachypnea/fevers suggestive of severe sepsis, MCV of 70 suggestive of MILADIS versus thallasemia vs anemia chronic disease, left shift noted suggestive of active infection, LA of 2.3 suggestive of severe sepsis, Mg of 1.3 noted, elevated LFTs suggestive of known shock liver versus new process, troponin 7.5 reassuring, noted gamma gap of 5 suggestive of underlying process Medications Administered Heparin Sodium/Dextrose (Heparin 26031 Unit/500 Ml D5w) 25,000 units in 500 mls @ 23 mls/hr IV .[id number] [facility]; Protocol Stop: 09/05/24 13:44 Last Admin: 08/06/24 13:53 Dose: 1,150 units/hr, 23 mls/hr Documented By: JEFFERSON Co-signed By: GILBERTO Code Status & VTE Plan VTE Prophylaxis Plan VTE Prophylaxis will be ordered: Yes
[2024-08-06] MEDS: PIPERACILLIN/TAZOBACTAM 4.5 GM/100 ML BAG IV ONE (14:43)
[2024-08-06 15:21] LABS: Appearance Urine Clear (Clear); Bacteria Urine Automated None Seen (None Seen); Cast Urine Automated 0-2 /lpf (0-2); Epithelial Cell Urine Auto 0-2 /hpf (0-2); Glucose Urine UA 1+ (Negative); RBC Urine Automated 0-2 /hpf (0-2); WBC Urine Automated 0-5 /hpf (0-5)
--- NOTE | 2024-08-06 15:22 | Pulmonary Consultation ---
Date of Consultation August 06, 2024 Assessment & Plan (1) Pulmonary abscess: Plan Impression: 34-year-old male with history of substance abuse who was just discharged from [facility] (no records available) to an inpatient psych unit. He was brought to the emergency room with fevers, chills, shortness of breath. CT scan shows cavitary lesions concerning for septic emboli versus multifocal necrotic pneumonia. Recommendations: 1. Recommend obtaining records from [facility] including culture results and prior imaging. Reports would not be sufficient, would need to review prior imaging studies. If these are not available, would recommend transferring the patient to [facility] to ensure continuity of care. Agree with antibiotics in the form of Zosyn and vancomycin currently pending ID consultation and results of culture data 2. This has the appearance of potential blood-borne infection/septic emboli. Need to rule out endocarditis. Recommend transthoracic echocardiogram. If this is insufficient and blood cultures are positive, may need RENATO. Low threshold for getting ID consultation. 3. Less suspicious for TB or other endemic fungal infections. The patient's been placed in isolation. Defer to infectious disease and primary service. 4. Patient does have some pleural thickening. He certainly could develop an empyema in the future however the fluid collection is not large enough to warrant tube placement currently. History of Present Illness History of Present Illness Asked by hospitalist to assist in evaluation management this patient with an abnormal CT scan. History is obtained from review electronic medical record. Patient is in isolation currently. Patient is a 34-year-old male with history of suicidal ideation with depression as well as rheumatoid arthritis (unclear how the diagnosis was made or what his status is) he was brought to the emergency room for fevers chills and shortness of breath. He was just discharged from [facility] yesterday due to methadone overdose. He was intubated and treated for hypovolemic shock as well as rhabdomyolysis and shock liver. He was sent to a rehab facility. He felt poorly and returned to the emergency room here where CT scan showed cavitary lung lesions and a variety of lab abnormalities. He is received antibiotics and was admitted to the hospitalist service. We do not have any records from his [facility] evaluation. Allergies Allergy/AdvReac Type Severity Reaction Status Date / Time naproxen Allergy Rash Verified 08/06/24 13:57 Home Medications Medication Instructions Recorded Confirmed Type acetaminophen 325 mg tablet 650 mg PO Q6H PRN Pain 08/06/24 08/06/24 History (Tylenol) benzonatate 100 mg capsule 100 mg PO TID PRN Cough 08/06/24 08/06/24 History calcium carbonate (Calcium 500) 1,000 mg PO TID PRN Gastric 08/06/24 08/06/24 History Distress dextromethorphan-guaifenesin 10 10 ml PO Q6H PRN Cough 08/06/24 08/06/24 History mg-200 mg/5 mL oral liquid escitalopram oxalate 5 mg tablet 5 mg PO DAILY 08/06/24 08/06/24 History lisinopril 2.5 mg tablet 2.5 mg PO DAILY 08/06/24 08/06/24 History melatonin 3 mg tablet 3 mg PO HS 08/06/24 08/06/24 History metoprolol tartrate 25 mg tablet 12.5 mg PO Q12H 08/06/24 08/06/24 History nicotine (polacrilex) 2 mg gum 4 mg buccal Q4H PRN Each Smoking 08/06/24 08/06/24 History (Nicorette) Break omeprazole 40 mg capsule,delayed 40 mg PO BID 08/06/24 08/06/24 History release oxycodone 5 mg tablet 5 mg PO Q6H PRN Pain 08/06/24 08/06/24 History sennosides 8.6 mg tablet (senna) 8.6 mg PO DAILY PRN Constipation 08/06/24 08/06/24 History trazodone 50 mg tablet 50 mg PO HS 08/06/24 08/06/24 History Patient History Social History Smoking Status: Light tobacco smoker Tobacco Type: Cigars Feels Safe at Home: Yes Review of Systems Review of Systems: Please refer to admission H&P Physical Exam Physical Exam: Gen: A&O 3 NAD, dyspneic HEENT: NCAT, EOMI, not icteric. External ears normal. No rhinorrhea. Moist mucous membranes. No johnson spots Neck: Supple, full range of motion, no observable masses, No meningeal sign. Lungs: rhonchi mildly throughout lung baum CV: tachycardic, regular Abdomen: Soft, nondistended, No rebound tenderness. MSK: splinter hemorrhages noted on left 3rd and fourth digits , no obvious Osler nodes noted Skin: No rashes, petechiae, lesions. Normal color per patient. Neuro: Normal Gait, Grossly intact. Psych: appears anxious Results & Data Results & Data Vital Signs (Past 12 Hours) Vital Signs Temp Pulse Pulse Resp BP BP Pulse Ox 08/06/24 14:35 96 H 17 107/70 100 08/06/24 14:00 37.1 C 08/06/24 13:00 122 H 22 95/65 L 99 08/06/24 12:45 129 H 22 101/67 98 08/06/24 12:30 117 H 20 100/71 95 08/06/24 12:00 119 H 20 114/74 96 08/06/24 11:45 116 H 20 110/72 96 08/06/24 11:30 116 H 24 100/75 97 08/06/24 11:15 124 H 22 114/91 100 08/06/24 11:00 128 H 16 97/80 L 98 08/06/24 10:57 128 H 16 98 08/06/24 10:47 123 H 08/06/24 10:13 38.0 C H 132 H 16 133/79 97 08/06/24 10:00 100 08/06/24 10:00 O2 Del Method 08/06/24 14:35 Room Air 08/06/24 14:00 08/06/24 13:00 Room Air 08/06/24 12:45 Room Air 08/06/24 12:30 Room Air 08/06/24 12:00 Room Air 08/06/24 11:45 Room Air 08/06/24 11:30 Room Air 08/06/24 11:15 Room Air 08/06/24 11:00 Room Air 08/06/24 10:57 Room Air 08/06/24 10:47 08/06/24 10:13 Room Air 08/06/24 10:00 Room Air 08/06/24 10:00 Room Air Critical Care Results & Data Vital Signs (Past 12 Hours) Vital Signs Temp Pulse Pulse Resp BP BP Pulse Ox 08/06/24 14:35 96 H 17 107/70 100 08/06/24 14:00 37.1 C 08/06/24 13:00 122 H 22 95/65 L 99 08/06/24 12:45 129 H 22 101/67 98 08/06/24 12:30 117 H 20 100/71 95 08/06/24 12:00 119 H 20 114/74 96 08/06/24 11:45 116 H 20 110/72 96 08/06/24 11:30 116 H 24 100/75 97 08/06/24 11:15 124 H 22 114/91 100 08/06/24 11:00 128 H 16 97/80 L 98 08/06/24 10:57 128 H 16 98 08/06/24 10:47 123 H 08/06/24 10:13 38.0 C H 132 H 16 133/79 97 08/06/24 10:00 100 08/06/24 10:00 O2 Del Method 08/06/24 14:35 Room Air 08/06/24 14:00 08/06/24 13:00 Room Air 08/06/24 12:45 Room Air 08/06/24 12:30 Room Air 08/06/24 12:00 Room Air 08/06/24 11:45 Room Air 08/06/24 11:30 Room Air 08/06/24 11:15 Room Air 08/06/24 11:00 Room Air 08/06/24 10:57 Room Air 08/06/24 10:47 08/06/24 10:13 Room Air 08/06/24 10:00 Room Air 08/06/24 10:00 Room Air Lab & Micro Results (Past 24 Hours) RBC 3.88 M/uL (4.70-6.10) L 08/06/24 WBC 15.98 K/ul (4.8-10.8) H 08/06/24 Hgb 8.3 g/dl (14.0-18.0) L 08/06/24 Hct 27.3 % (42.0-52.0) L 08/06/24 MCV 70.4 fL (80.0-100.0) L 08/06/24 MCH 21.4 pg (25.0-34.0) L 08/06/24 MCHC 30.4 g/dL (32.0-36.0) L 08/06/24 RDW Standard Deviation 48.3 fL (36.4-46.3) H 08/06/24 RDW Coefficient of Variation 19.8 % (11.5-14.5) H 08/06/24 Plt Count 828 K/uL (130-400) H 08/06/24 MPV 9.2 fL (9.4-12.4) L 08/06/24 Neutrophils (%) (Auto) 83.7 % 08/06/24 Lymphocytes (%) (Auto) 5.9 % 08/06/24 Monocytes # (Auto) 1.23 K/uL (0.11-0.59) H 08/06/24 Eosinophils # (Auto) 0.10 K/uL (0.00-0.50) 08/06/24 Immature Granulocyte % (Auto) 1.7 % 08/06/24 Neutrophils # (Auto) 13.37 K/uL (1.40-6.50) H 08/06/24 Lymphocytes # (Auto) 0.95 K/uL (1.20-3.40) L 08/06/24 Monocytes # (Auto) 1.23 K/uL (0.11-0.59) H 08/06/24 Eosinophils # (Auto) 0.10 K/uL (0.00-0.50) 08/06/24 Basophils # (Auto) 0.06 K/uL (0.00-0.20) 08/06/24 Immature Granulocyte # (Auto) 0.27 K/uL (0.01-0.20) H 08/06 Na 133 mmol/L (136-145) L 08/06/24 K 4.1 mmol/L (3.5-5.1) 08/06/24 Cl 100 mmol/L (98-107) 08/06/24 CO2 23 mmol/L (21-32) 08/06/24 Anion Gap 10 (3-11) 08/06/24 BUN 10 mg/dl (6-23) 08/06/24 Creatinine 0.78 mg/dl (0.6-1.4) 08/06/24 BUN/Creatinine Ratio 12.8 (10-20) 08/06/24 Glu 124 mg/dl (70-99(Fasting)) H 08/06/24 Ca 9.1 mg/dl (8.6-10.3) 08/06/24 Total Bilirubin 0.5 mg/dl (0.2-1.0) 08/06/24 Direct Bilirubin 0.2 mg/dl (0-0.2) 08/06/24 AST 51 U/L (13-39) H 08/06/24 ALT 99 U/L (7-52) H 08/06/24 Alkaline Phosphatase 139 U/L (34-104) H 08/06/24 TP 8.3 gm/dl (6.0-8.3) 08/06/24 Albumin 3.5 gm/dl (3.4-5.0) 08/06/24 Mg 1.3 mg/dl (1.7-2.4) L 08/06/24 10:31 Calcium Level 9.1 mg/dl (8.6-10.3) 08/06/24 10:31 Prothromb Time International Ratio 1.3 (0.9-1.1) H 08/06/24 12 :13 Venous Blood pH 7.48 (7.36-7.41) H 08/06/24 11:25 Venous Blood Partial Pressure CO2 30 mmHg (38-50) L 08/06/24 11 :25 Venous Blood Partial Pressure O2 < 20 mmHg 08/06/24 11:25 Venous Blood HCO3 22 mmol/L 08/06/24 11:25 Venous Blood Base Excess -0.8 mEq/L 08/06/24 11:25 Venous Blood Oxygen Saturation < 60.0 % 08/06/24 11:25 Diagnostic Findings (Past 24 Hours) Chest X-Ray 08/06/24 10:57 XR chest 1V portable HISTORY: 34 years-old Male Sepsis COMPARISON: None TECHNIQUE: AP view of the chest FINDINGS: Cardiac silhouette is normal. No pneumothorax or large pleural effusion. Bilateral reticulonodular densities with linear peripheral left basilar and bilateral midlung densities. Bones appear grossly intact. IMPRESSION: Findings suggestive of multifocal pneumonia. Follow-up imaging after treatment course recommended in order to document resolution. ACT 112: Negative or not required by law. The above report was generated using voice recognition software. It may contain grammatical, syntax or spelling errors. Electronically signed by: Jaden Romero M.D. 08/06/2024 11:14 AM Chest CTA 08/06/24 11:13 CT angio chest PE protocol CT DOSE: 686.71 mGy.cm HISTORY: 34 years-old Male with PE. Acute shortness of breath TECHNIQUE: Multiple CTA images of the chest were obtained after the intravenous administration of 119 ml Optiray. Coronal and sagittal MIPS were obtained from the axial data set and were submitted for review. All measurements were obtained according to NASCET criteria. A dose lowering technique was utilized adhering to the principles of ALARA. COMPARISON: None. FINDINGS: CTA: Limited evaluation of the pulmonary arterial tree secondary to contrast bolus timing and respiratory motion artifact. There are several right-sided age- indeterminate segmental and subsegmental pulmonary emboli noted which are most pronounced in the right upper and lower lobes. No central pulmonary emboli are seen. Normal thoracic aorta.Heart size is normal. CT CHEST: No significant mediastinal and right hilar lymphadenopathy includes an AP window lymph node on image 117 measuring 2.6 x 1.3 cm. No axillary lymphadenopathy identified. Small loculated left pleural effusion with associated pleural thickening. Extensive and diffuse reticulonodular opacities with several thick- walled cavitary foci including a 4.4 cm lesion within the right upper lobe on image 119 and a 6.7 cm lesion within the left lower lobe on image 76 demonstrating air-fluid level. No acute upper abdominal abnormality. Unremarkable soft tissues. No acute fracture. No acute fracture. No destructive bone lesions. IMPRESSION: 1. Segmental and subsegmental pulmonary emboli within the right lung. 2. Extensive bilateral pulmonary opacities with thick-walled cavitations as above within both the upper and lower lung zones. Dominant large cavitation within the basal left lower lobe with air-fluid level is suggestive of an abscess. Findings are likely infectious or inflammatory with necrotic pneumonia. Pneumonia with septic emboli versus metastatic disease are additional considerations. Follow-up with pulmonology and CT imaging is needed. 3. Mediastinal and hilar lymphadenopathy. 4. Small loculated left-sided pleural effusion with pleural thickening may represent a developing empyema. ACT 112: Negative or not required by law. The above report was generated using voice recognition software. It may contain grammatical, syntax or spelling errors. Electronically signed by: Jaden Romero M.D. 08/06/2024 1:02 PM I & O Totals 24 Hours 08/05/24 08/06/24 08/07/24 06:59 06:59 06:59 Intake Total 2189 / 2189 Balance 2189 / 2190 Cumulative 08/06/24 10:00 thru 08/06/24 14:43 Intake Total 2190 Balance 2190 RT Ventilator Mngmt (Last Documented) Ventilator Ordered Settings Respiratory Rate 17 08/06/24 14:35 Ventilator - PT Measurements Respiratory Rate 17 PG Care Time/CCT Total # of Minutes Spent Total Time Spent with Patient: Total time spent is greater than 50% in coordination of care (as documented) at patient's floor/unit and/or counseling patient: Coding Level of Care Code 81182 IN/OBS CONSULT LVL 4,60M Diagnoses Pulmonary abscess J85.2
[2024-08-06] MEDS ORDERED: SENNA 8.6 MG TAB PO PRN (15:47)
[2024-08-06] MEDS ORDERED: POLYETHYLENE (MIRALAX) 17 GM PACK PO PRN (15:47)
[2024-08-06] MEDS ORDERED: CALCIUM CARBONATE 500 MG CHEWABLE TAB PO PRN (15:50)
[2024-08-06] MEDS: ESCITALOPRAM OXALATE 10 MG TAB PO SCH (16:13)
[2024-08-06] MEDS: BENZONATATE 100 MG CAPSULE PO PRN (16:13)
[2024-08-06] MEDS: METOPROLOL TARTRATE 25 MG TAB PO SCH (16:14)
[2024-08-06 16:27] LABS: Cholesterol 102.0 mg/dl (0-200); HDL Cholesterol 26.0 mg/dl; Triglycerides 106.0 mg/dl (0-150)
[2024-08-06] MEDS: OPTIRAY 320 100ml IV ONE (16:31)
[2024-08-06 16:44] LABS: Thyroid Stimulating Hormone 0.556 uIu/ml (0.300-4.500)
[2024-08-06] MEDS: Heparin IV Adult Wt-Based Standard *NO* INITIAL Bolus Protocol IV STA (16:53)
[2024-08-06 16:54] LABS: Hemoglobin A1C 5.3 % (4.5-5.6)
[2024-08-06] MEDS: VANCOMYCIN HCL 1,750 MG in SODIUM CHLORIDE 0.9% 500 ML IV ONE (17:49)
[2024-08-06] MEDS: ACETAMINOPHEN 500 MG TAB PO PRN (17:55)
--- NOTE | 2024-08-06 18:01 | CT Scan Report ---
EXAM: CT abd pelvis oral and IV con CLINICAL HISTORY: Septic emboli. TECHNIQUE: CT of the abdomen and pelvis was performed, with oral contrast administration, the following protocol: axial images with, and reconstructed coronal and sagittal images. 93ml Opitray-320mg/ml Intravenous contrast and oral contrast was administered. One of the following dose reduction techniques was utilized for this exam: Automated exposure control, adjustment of the mA and/or kV according to patient size, and use of iterative reconstruction. COMPARISON: None. FINDINGS: Abdomen: Liver: Normal in size, shape, and density. No focal lesions, cysts, or masses were identified. Hepatic vasculature and biliary ducts are unremarkable. The portal vein is patent with no thrombosis. The superior mesenteric vein is patent with no thrombosis. Gallbladder and Biliary System: The gallbladder is normal in size and shape. No wall thickening, pericholecystic fluid, or gallstones were identified. The common bile duct is normal in caliber without dilation. Pancreas: The pancreatic head, body, and tail are visualized and appear normal in size and density. No pancreatic masses or calcifications were noted. The pancreatic duct is not dilated. Spleen: Normal in size, shape, and density. No splenic lesions or masses were identified. Appendix: The appendix is normal in size, it is seen pelvic in position with its tip reaching to the level of the right seminal vesicle, without karla-appendiceal fat stranding, and without an appendicolith. No evidence of appendiceal abscess or perforation. Kidneys and Adrenal Glands: Both kidneys are normal in size, shape, and position. Cortical thickness is within normal limits and shows normal enhancement and adequate corticomedullary differentiation. No renal calculi or hydronephrosis. Adrenal glands are unremarkable with no evidence of masses or hyperplasia. Pelvis: Urinary Bladder: Normal in contour and wall thickness. No intraluminal lesions identified. Prostate: Normal in size and contour. No focal lesions or masses identified. Seminal Vesicles: Normal in size and appearance. No abnormalities noted. Rectum and Sigmoid Colon: Normal wall thickness and no evidence of mass. Peritoneal and Retroperitoneal Structures: No free fluid or abnormal fluid collections were identified within the abdomen or pelvis. No significant enlarged abdominal or pelvic lymphadenopathy was noted. Bowel: The visualized bowel loops are normal in caliber and appearance. No evidence of bowel obstruction or wall thickening. Bones and Soft Tissues: Spastic changes of the spine denoting back muscles spasm. No fractures or abnormal masses were identified. A small oblong shape soft tissue nodule seen along the subcutaneous fat of the left anterolateral abdominal wall at L4 level measures 10x6.6 mm, with clear fat plane and could represent an inclusion cyst. Lower chest cuts revealed: Multi-focal cavitary lesions are seen scattered along the scanned lung parenchyma, with a well-defined left lower lobe peripherally located cavitary lesion, measuring 3.5x3.5 cm with air-fluid level; all these changes are seen on a background of diffuse fibro-reticulonodular interstitial infiltrates. Left-sided mildly encysted pleural effusion with accentuated enhancement of the pleural reflections and air foci are seen within, with subsequent leveling. IMPRESSION: 1. Contrast-enhanced CT of the abdomen and pelvis demonstrates unremarkable normal findings without evidence of acute intra-abdominal or pelvic pathology. 2. Multiple lung parenchymal cavitary lesions mounting to abscess formation with left-sided encysted pleural effusion showing air foci within. Further assessment with CT chest study is advised. Electronically signed by Rigoberto Douglas 08-06-2024 6:01 PM
[2024-08-06] MEDS ORDERED: Nursing to Pharmacy Communication SCH (18:15)
[2024-08-06] MEDS ORDERED: ALBUT/IPRATROP 3MG/0.5MG NEB 3 ML VIAL NEB PRN (18:29)
--- NOTE | 2024-08-06 18:36 | Pharmacy Report ---
Pharmacy PK ABX Note - Date of Service August 06, 2024 - Assessment and Plan Assessment 34 year old M receiving vancomycin/Zosyn for treatment of CAP r/o septic emboli, empyema, and infective endocarditis. Pertinent microbiologic data includes: negative MRSA nasal swab, negative respiratory biofire, blood cultures pending, Quantiferon TB Gold pending, Coccidoides AB serum pending, and Aspergillus antibodies pending. Recently discharged from [facility] on 08/05 s/p intubation due to methadone overdose. Day # 1 of antimicrobial therapy. Plan Vancomycin * Loading dose: 1750 mg IV x 1 * Maintenance dose: 1000 mg IV every 8 hours * Regimen is predicted to achieve target AUC/LOIS of 400-600 mg/L.hr * Trough level ordered for: 08/08/24 @ 0930 Pharmacy will continue to follow and will adjust dose/frequency as necessary. Thank you. Pharmacy has transitioned to AUC monitoring for vancomycin. AUC/LOIS is the preferred PK/PD target and is associated with decreased risk of nephrotoxicity compared to traditional trough targets.
--- NOTE | 2024-08-06 18:49 | Electrocardiogram Report ---
Test Reason : Blood Pressure : */* mmHG Vent. Rate : 126 BPM Atrial Rate : 126 BPM P-R Int : 130 ms QRS Dur : 84 ms QT Int : 296 ms P-R-T Axes : 53 8 19 degrees QTcB Int : 428 ms Sinus tachycardia Otherwise normal ECG No previous ECGs available Confirmed by Don Chang ([id number]) on 08/06/2024 6:49:23 PM Referred By: REFERRED SELF Confirmed By: Don Chang
[2024-08-06] MEDS: LACTATED RINGER'S 1,000 ML IV SCH (19:02)
[2024-08-06 20:36] LABS: ANTI-Xa, UFH(UnfractionatedHep 0.16 IU/ml (0.3-0.7)
[2024-08-06] MEDS: HYDROmorphone INJ 0.5 MG/0.5 ML SYR IV PRN (21:43)
[2024-08-06] MEDS: DICLOFENAC SOD 1% GEL 100 GM TUBE EXT SCH (21:46)
[2024-08-06] MEDS: PIPERACILLIN/TAZOBACTAM 4.5 GM/100 ML BAG IV SCH (21:47)
[2024-08-06] MEDS: ONDANSETRON INJ 2 MG/ML 2 ML VIAL IV PRN (21:58)
[2024-08-07] MEDS: VANCOMYCIN HCL 1,000 MG/270 ML BAG IV SCH (01:38)
[2024-08-07 04:15] LABS: Base Excess VBG -1.9 mEq/L; HCO3 VBG 22 mmol/L; Oxygen Saturation VBG 84.4 %; PCO2 VBG 35 mmHg (38-50); PO2 VBG 51 mmHg; pH VBG 7.41 (7.36-7.41)
[2024-08-07 04:31] LABS: Hematocrit (blood only) 21.1 % (42.0-52.0); Hemoglobin 6.4 g/dl (14.0-18.0); Mean Corpuscular Hemoglobin 21.4 pg (25.0-34.0); Mean Corpuscular Volume 70.6 fL (80.0-100.0); Platelet Count 660 K/uL (130-400); RDW Standard Deviation 48.5 fL (36.4-46.3); Red Blood Count 2.99 M/uL (4.70-6.10); White Blood Count 12.41 K/ul (4.8-10.8)
[2024-08-07] MEDS: LEVALBUTEROL 1.25 MG/3 ML NEB NEB STA (04:39)
[2024-08-07] MEDS: IPRATROPIUM BROMIDE NEB SOLN 0.02% 0.5MG/2.5ML VIAL INH STA (04:40)
[2024-08-07] MEDS ORDERED: ACETAMINOPHEN 325 MG TAB PO PRN (04:41)
[2024-08-07 04:43] LABS: ANTI-Xa, UFH(UnfractionatedHep 0.20 IU/ml (0.3-0.7)
[2024-08-07] MEDS: ACETAMINOPHEN 1,000 MG/100 ML VIAL IV STA (04:56)
[2024-08-07 04:57] LABS: Alanine Aminotransferase 70 U/L (7-52); Albumin Globulin Ratio 0.8 (0.9-2); Alkaline Phosphatase 106 U/L (34-104); Anion Gap 6 (3-11); Bilirubin,Total 0.4 mg/dl (0.2-1.0); Blood Urea Nitrogen 5 mg/dl (6-23); Calcium 7.8 mg/dl (8.6-10.3); Carbon Dioxide 23 mmol/L (21-32); Chloride 107 mmol/L (98-107); Creatinine Clr Calc Pharmacy 132.6 ml/min; Globulin 3.5 gm/dl (2.5-4.0); Glucose 111 mg/dl (70-99(Fasting)); Magnesium 1.7 mg/dl (1.7-2.4); Potassium 4.1 mmol/L (3.5-5.1); Sodium 136 mmol/L (136-145); Total Protein 6.2 gm/dl (6.0-8.3)
[2024-08-07] MEDS ORDERED: SODIUM CHLORIDE 0.9% 100 ML IV PRN (04:58)
[2024-08-07] MEDS: FUROSEMIDE INJ 20 MG/2 ML VIAL IV ONE (05:12)
[2024-08-07] MEDS: METOPROLOL TARTRATE 1 MG/ML VIAL IV STA (05:12)
[2024-08-07] MEDS: MAGNESIUM SULFATE / D5W 1 GM/100 ML BAG IV SCH (05:25)
--- NOTE | 2024-08-07 05:34 | XRay Report ---
EXAM: XR chest 1V portable CLINICAL HISTORY: low o2 TECHNIQUE: Radiograph of chest was acquired. COMPARISON: None. FINDINGS: There is blunting of left costophrenic angle. Multiple opacities are seen in right middle and bilateral lower zones. Prominent bronchovascular markings are seen. The cardiomediastinal silhouette is within normal limits. No acute osseous abnormality. IMPRESSION: 1. Left pleural effusion. 2. Bilateral patchy opacities - could be bronchopneumonia. Suggested clinical correlation and follow up x-ray / CT chest. Electronically signed by Thee Mata 08-07-2024 05:33 AM
--- NOTE | 2024-08-07 06:38 | Communication Note ---
Date of Service: August 07, 2024 Hemoglobin noted to be 6.4 from 8.3 on admission. No overt bleeding as per RN on IV heparin for blood clots. Patient refusing rectal exam to facilitate FOBT. AP Progressive anemia Possibly dilutional given IVF Transfuse PRBC to maintain hemoglobin of at least 7 Continue heparin for now FOBT
--- NOTE | 2024-08-07 08:29 | Pulmonology Progress Note ---
Date of Service August 07, 2024 Assessment & Plan (1) Pulmonary abscess: Plan Impression: 34-year-old male with history of substance abuse who was just discharged from [facility] (no records available) to an inpatient psych unit. He was brought to the emergency room with fevers, chills, shortness of breath. CT scan shows cavitary lesions concerning for septic emboli versus multifocal necrotic pneumonia. Recommendations: 1. Need imaging studies at [facility] to find out if this is a new process or not. If these are not available, would recommend transferring the patient to [facility] to ensure continuity of care. Agree with antibiotics in the form of Zosyn and vancomycin currently pending ID consultation and results of culture data 2. This has the appearance of potential blood-borne infection/septic emboli. Need to rule out endocarditis. Recommend transthoracic echocardiogram. If this is insufficient and blood cultures are positive, may need RENATO. Low threshold for getting ID consultation. 3. Less suspicious for TB or other endemic fungal infections. The patient's been placed in isolation. Defer to infectious disease and primary service. 4. Patient does have some pleural thickening. He certainly could develop an empyema in the future however the fluid collection is not large enough to warrant tube placement currently. Will follow with you. Feel free to contact us with questions or concerns Admission and Anticipated Discharge Date Admission Date: August 06, 2024 Subjective Patient seen and examined. EMR reviewed. The patient is somnolent but sitting up. He is coughing but not really expectorating phlegm. He remains on room air. He is receiving a transfusion due to anemia. Cultures of show no growth to date Review of Systems Review of Systems: All systems reviewed & are unremarkable except as noted in Subjective Physical Exam Physical Exam: Gen: A&O 3 NAD, dyspneic HEENT: NCAT, EOMI, not icteric. External ears normal. No rhinorrhea. Moist mucous membranes. No johnson spots Neck: Supple, full range of motion, no observable masses, No meningeal sign. Lungs: rhonchi mildly throughout lung baum CV: tachycardic, regular Abdomen: Soft, nondistended, No rebound tenderness. MSK: splinter hemorrhages noted on left 3rd and fourth digits , no obvious Osler nodes noted Skin: No rashes, petechiae, lesions. Normal color per patient. Neuro: Normal Gait, Grossly intact. Psych: appears anxious Results & Data Results & Data Vital Signs (Past 12 Hours) Vital Signs Temp Pulse Pulse Pulse Resp BP BP 08/07/24 07:46 37 C 92 H 20 104/71 08/07/24 06:46 37.3 C 103 H 20 105/68 08/07/24 06:16 37.2 C 108 H 20 97/63 L 08/07/24 06:01 37.7 C H 99 H 20 98/63 L 08/07/24 05:45 37.4 C 115 H 18 103/69 08/07/24 05:03 116 H 103/72 08/07/24 04:40 124 H 30 H 08/07/24 03:00 38.3 C H 144 H 26 H 118/79 08/07/24 02:58 08/06/24 23:17 37.7 C H 119 H 24 128/77 08/06/24 23:02 105 H Pulse Ox O2 Del Method O2 Flow Rate 08/07/24 07:46 95 08/07/24 06:46 96 3 08/07/24 06:16 97 3 08/07/24 06:01 98 3 08/07/24 05:45 96 08/07/24 05:03 08/07/24 04:40 91 Nasal Cannula 3 08/07/24 03:00 08/07/24 02:58 93 Nasal Cannula 3 08/06/24 23:17 92 Room Air 08/06/24 23:02 PG Care Time/CCT Total # of Minutes Spent Total Time Spent with Patient: Total time spent is greater than 50% in coordination of care (as documented) at patient's floor/unit and/or counseling patient: Coding Level of Care Code 52614 SUB INP/OBS CARE 2/35MIN Diagnoses Pulmonary abscess J85.2
[2024-08-07 08:43] LABS: Cdiff Toxin B Gene (2yr or >) Negative Cdiff Gene (Neg)
[2024-08-07 11:24] LABS: Hematocrit (blood only) 26.8 % (42.0-52.0); Hemoglobin 8.2 g/dl (14.0-18.0)
[2024-08-07 11:47] LABS: ANTI-Xa, UFH(UnfractionatedHep 0.19 IU/ml (0.3-0.7)
[2024-08-07] MEDS: HEPARIN SOD (PORCINE) 1000 UNIT/ML IV ONE ×2 (12:13→19:52)
--- NOTE | 2024-08-07 13:51 | Hospitalist Progress Note ---
Date of Service August 07, 2024 Assessment & Plan (1) Severe sepsis: (2) Hypomagnesemia: (3) Depression: (4) BECKA (generalized anxiety disorder): (5) Empyema: (6) Cavitary lesion of lung: (7) HAP (hospital-acquired pneumonia): Plan 34 yo male with pmhx of severe BECKA/depression c/b recurrent suicidal ideations, rheumatoid arthritis, hx of external hydrocephalus, hx of alcohol use disorder (in early remission, last early July) who presents for fevers, SOB and chills 2/2 severe sepsis with septic emboli/lung abscesses. #Severe Sepsis #HAP #Lung Abscess w/ Cavitary Lesions #R/o Empyema #R/o Septic Emboli #R/o Infective Endocarditis -patient has fever, tachycardia, tachypnea, and leukocytosis with elevated LA suggestive of severe sepsis -lung imaging concerning for significant for numerous cavitary lesions w/ concern for lung abscess and potential septic emboli -unable to do Hernandez criteria at his time due cultures just drawn, does have 2 minor criteria with splinter hemorrhages and fever -likely 2/2 aspiration pneumonia from recent intubation now worsening, has splinter hemorrhages on exam concerning for potential infectious endocarditis Plan: -pulmonary consult, appreciate recs -broaden abx to vanc/zosyn, get additional blood culture for 3 cultures total, MRSA swab ordered, sputum culture ordered, IS and flutter valve ordered -continue fluid resuscitation -CT abdomen/pelvis and TTE ordered for septic emboli workup -check TB, aspergillus, coccidioides given concern for cavitary lung disease, lower concern at this time -will need CT chest in 6 months to support group manager resolution -ID consult in AM, likely will need terminal worker abx -trend troponin, lactic acid 08/07 clinically improving fever resolving leukocytosis improving blood culture: pending sputum culture: pending echo: EF 55-60%, no overt vegetations noted continue Vanco + Zosyn appreciate Pulm recommendations records and imaging studies from Induction Manager obtained ID consulted #Right Segmental/Subsegmental PE -PESI score of 106 points making patient high risk PE -segmental and subsegmental PEs in right lung -not requiring oxygen Plan: - BNP: normal - echo: no RV strain -- hemodynamically stable on room air continue IV Heparin monitor H&H #Anemia -- Hg dropped from 8 to 6.4 no overt signs of active bleeding -- transfused 1 unit pRBC Hg improved to 8.2 anemia panel ordered continue to monitor closely #Subacute HFmid EF (EF 50%) -likely in setting of alcohol use and methadone use (although patient states one time event) Plan: -f/u echo results -check A1c, lipids, TSH for risk stratifcation -continue metoprolol, hold lisinopril for now given severe sepsis -- repeat echo: EF 55-60% #Gamma Gap -check HIV/Hep C, has risk factors given methadone overdose #Severe BECKA/MDD #Hx of Suicidal Ideation -patient denies suicidial/homicidal ideation at this time -appears anxious but not decompensated Plan: -low threshold for psychiatric consult and sitter -continue home medications #Hypomagnesemia -replenish #Rheumatoid Arthritis -f/u outpatient plan of care discussed with patient in detail and at length all questions answered he is understanding, agreeable, comfortable with the plan of care Admission and Anticipated Discharge Date Admission Date: August 06, 2024 Subjective ff up for severe sepsis, BL pneumonia, possible lung abscess, etc seen resting in bed, comfortable sleeping but easily awakened states he still feels sick but better than yesterday still having productive cough mild shortness of breath, no chest pain no chills today no abdominal pain ,nausea no bleeding noted denies depression, suicidal ideation no other new symptoms Review of Systems Review of Systems: all noted and negative except for above Physical Exam Physical Exam: General- oriented x 3, not in distress, speaks in sentences with no effort or accessory muscle use appears weak Eyes- anicteric Neck- no JVD Lungs-mild rhonchi BL no wheezing good air entry BL Heart- normal rate, regular rhythm; no murmurs Abdomen- normal bowel sounds, nondistended, soft, nontender Extremities- no pretibial edema, no calf tenderness Neuro- alert, oriented x 3; no gross focal neurologic deficits Skin- warm & dry Results & Data Results & Data Vital Signs (Past 12 Hours) Vital Signs Temp Pulse Pulse Pulse Resp BP BP 08/07/24 12:02 37.4 C 114 H 18 117/79 08/07/24 08:44 36.8 C 97 H 18 95/60 L 08/07/24 07:46 37 C 92 H 20 104/71 08/07/24 06:46 37.3 C 103 H 20 105/68 06/29/25 06:16 37.2 C 108 H 20 97/63 L 08/07/24 06:01 37.7 C H 99 H 20 98/63 L 08/07/24 05:45 37.4 C 115 H 18 103/69 08/07/24 05:03 116 H 103/72 08/07/24 04:40 124 H 30 H 08/07/24 03:00 38.3 C H 144 H 26 H 118/79 08/07/24 02:58 Pulse Ox O2 Del Method O2 Flow Rate 08/07/24 12:02 90 Room Air 08/07/24 08:44 95 08/07/24 07:46 95 08/07/24 06:46 96 3 08/07/24 06:16 97 3 08/07/24 06:01 98 3 08/07/24 05:45 96 08/07/24 05:03 08/07/24 04:40 91 Nasal Cannula 3 08/07/24 03:00 08/07/24 02:58 93 Nasal Cannula 3 all noted and reviewed including below
[2024-08-07 14:28] LABS: Ferritin 113.6 ng/ml (8-388)
[2024-08-07 14:29] LABS: Iron < 10 mcg/dl (35-175); Transferrin 201 mg/dl (200-360)
[2024-08-07 14:34] LABS: Folate (Folic Acid),Ser orPlas 12.7 ng/ml (>5.38)
[2024-08-07 14:35] LABS: Vitamin B12 729.0 pg/ml (180-914)
[2024-08-07] MEDS: ADVANCED PROBIOTIC 625 MG CAPSULE PO SCH (15:39)
--- NOTE | 2024-08-07 18:32 | CT Scan Report ---
CT head without contrast History: Left arm weakness Comparison: None Technique: Using multidetector thin collimation helical acquisition technique, axial, coronal and sagittal CT images from the skull base to the vertex were obtained without intravenous contrast. Dose reduction techniques were achieved by using automatic exposure control and/or adjustment of mA and/or kV according to patient size and/or use of iterative reconstruction technique. Findings: No intracranial hemorrhage, mass-effect, or midline shift. The ventricles are proportionate to the cerebral sulci. The lara to white matter differentiation of the cerebral hemispheres is preserved. The basal cisterns are patent. The visualized paranasal sinuses are clear. Mastoid air cells are clear. Impression: No acute intracranial pathology. Electronically signed by Don Kat 08-07-2024 6:31 PM
[2024-08-07] MEDS: LOPERAMIDE HCL 2 MG CAP PO PRN (18:46)
--- NOTE | 2024-08-07 18:46 | CT Scan Report ---
CT cervical spine without IV contrast History: Left arm weakness Comparison: None Technique: Using multidetector thin collimation helical acquisition technique, axial, coronal and sagittal CT images through the cervical spine were obtained without intravenous contrast. Dose reduction techniques were achieved by using automatic exposure control and/or adjustment of mA and/or kV according to patient size and/or use of iterative reconstruction technique. Findings: The cervical vertebrae are normally aligned. Normal cervical lordosis. No acute fracture or subluxation. No prevertebral edema. There is no disc height narrowing at any level. The findings on a level by level basis are as follows: C2-3: No spinal canal or neural foraminal stenosis C3-4: No spinal canal or neural foraminal stenosis C4-5: No spinal canal or neural foraminal stenosis C5-6: No spinal canal or neural foraminal stenosis C6-7: No spinal canal or neural foraminal stenosis C7-1: No spinal canal or neural foraminal stenosis No abnormality of the paraspinous soft tissues. Scattered patchy nodular opacities, and some streaky bandlike atelectasis is seen at the lung apices. Impression: No acute fracture or traumatic subluxation. Nodular opacities and atelectasis at the lung apices, which may be infectious/inflammatory. Electronically signed by Don Kat 08-07-2024 6:43 PM
--- NOTE | 2024-08-07 18:47 | CT Scan Report ---
CT left shoulder and left humerus without contrast History: Pain/weakness Comparison: None Technique: CT performed of the extremity without IV contrast. Dose reduction techniques were achieved by using automatic exposure control and/or adjustment of mA and/or kV according to patient size and/or use of iterative reconstruction technique. Findings: No fracture or dislocation. Joint spaces are normally aligned. No visualized soft tissue abnormality. No soft tissue masses. No visualized left axillary lymphadenopathy. No aggressive osseous lesion. Patchy nodular opacities seen throughout the left lung. Extensive areas of consolidative opacity about the periphery of the lingula and left lower lobe, demonstrating internal cavitation. Impression: No bony abnormality of the left shoulder or left humerus. In the left lung, there is visualized prominent consolidative cavitary lesions peripherally, which may represent necrotizing pneumonia. Electronically signed by Don Kat 08-07-2024 6:47 PM
[2024-08-07 19:31] LABS: ANTI-Xa, UFH(UnfractionatedHep 0.11 IU/ml (0.3-0.7)
[2024-08-07 20:25] LABS: Hematocrit (blood only) 24.4 % (42.0-52.0); Hemoglobin 7.6 g/dl (14.0-18.0)
[2024-08-08 02:14] LABS: Hematocrit (blood only) 24.4 % (42.0-52.0); Hemoglobin 7.4 g/dl (14.0-18.0); Mean Corpuscular Hemoglobin 22.1 pg (25.0-34.0); Mean Corpuscular Volume 72.8 fL (80.0-100.0); Platelet Count 601 K/uL (130-400); RDW Standard Deviation 51.2 fL (36.4-46.3); Red Blood Count 3.35 M/uL (4.70-6.10); White Blood Count 11.41 K/ul (4.8-10.8)
[2024-08-08 02:30] LABS: Alanine Aminotransferase 78.0 U/L (7-52); Albumin Globulin Ratio 0.7 (0.9-2); Alkaline Phosphatase 107.0 U/L (34-104); Anion Gap 7.0 (3-11); Bilirubin,Total 0.5 mg/dl (0.2-1.0); Blood Urea Nitrogen 5.0 mg/dl (6-23); Calcium 8.4 mg/dl (8.6-10.3); Carbon Dioxide 25.0 mmol/L (21-32); Chloride 103.0 mmol/L (98-107); Creatinine Clr Calc Pharmacy 125.1 ml/min; Globulin 3.7 gm/dl (2.5-4.0); Glucose 95.0 mg/dl (70-99(Fasting)); Potassium 4.3 mmol/L (3.5-5.1); Sodium 135.0 mmol/L (136-145); Total Protein 6.2 gm/dl (6.0-8.3)
[2024-08-08 02:47] LABS: ANTI-Xa, UFH(UnfractionatedHep 0.37 IU/ml (0.3-0.7)
[2024-08-08] MEDS: FERROUS SULFATE 325 MG TAB PO SCH (08:54)
--- NOTE | 2024-08-08 09:37 | Orthopedic Consultation ---
Date of Service August 08, 2024 Assessment & Plan (1) Axillary nerve palsy: Plan * Case/imaging reviewed and discussed with Dr Sierra * Suspect persistent/lingering symptoms secondary to prolonged time down while laying on the arm, possible axillary nerve palsy * No bony or soft tissue abnormalities/abscess noted on CT shoulder and humerus * Could consider nonurgent MRI left brachial plexus, shoulder/humerus, however low suspicion for rotator cuff pathology, and patient is unable to lay still given coughing, likely would not change control coordinator. * Downstream neurological function intact * Recommend PT/OT for ROM, stretching, general strengthening * Disposition: TBD * Daily treatment: Physical Therapy/ Occupational Therapy per protocol * Weight bearing status: WBAT * Pain control * Remainder care per primary team * Will continue to follow peripherally, please contact with further concerns History of Present Illness Reason for Consultation: Left upper extremity weakness Requesting Physician: . Attending Physician: Jez Barth MD . .Patient is a 34y/o male with left upper extremity pain and weakness. PMH including severe BECKA/depression c/b recurrent suicidal ideations, rheumatoid arthritis, hx of external hydrocephalus, hx of alcohol use disorder. Currently admitted to ICU with septic, pneumonia. Recent admission to [facility] for methadone overdose c/b intubation/acute HFmidEF (EF 50%)/shock liver/rhabdomyolysis/hypovolemic shock. Was also involuntary hold at [facility] with 1 to 1 sitter recent admission. Also had acute blood loss anemia. Was then transferred to the [facility] for intensive inpatient psychiatric treatment on 08/05/2024. Presents to ED with worsening chest pain, shortness of breath, chills, fever. Patient was admitted to ICU team with sepsis, CT findings concerning for septic emboli/lung abscess. Of note patient also with persistent left upper arm pain weakness that has been ongoing for approximately 2 weeks. Per report patient was down for several hours after an overdose and he has had persistent pain of the left upper arm and triceps region with difficulty lifting or moving the arm at the shoulder. This was evaluated during his recent hospitalization at [facility], conservative care with PT/OT recommended. Orthopedics consulted for evaluation and management recommendations. At time of exam patient sitting comfortably in bed, no acute distress. Regarding the left arm endorses persistent upper arm/triceps pain, also significant weakness of the shoulder and is unable to lift it off the bed without assistance. Denies tingling or numbness of the left upper extremity. He is able to move his fingers, hand, wrist, elbow without assistance and denies any loss of sensation in these areas. Allergies Allergy/AdvReac Type Severity Reaction Status Date / Time naproxen Allergy Rash Verified 08/06/24 13:57 Home Medications Medication Instructions Recorded Confirmed Type acetaminophen 325 mg tablet 650 mg PO Q6H PRN Pain 08/06/24 08/06/24 History (Tylenol) benzonatate 100 mg capsule 100 mg PO TID PRN Cough 08/06/24 08/06/24 History calcium carbonate (Calcium 500) 1,000 mg PO TID PRN Gastric 08/06/24 08/06/24 History Distress dextromethorphan-guaifenesin 10 10 ml PO Q6H PRN Cough 08/06/24 08/06/24 History mg-200 mg/5 mL oral liquid escitalopram oxalate 5 mg tablet 5 mg PO DAILY 08/06/24 08/06/24 History lisinopril 2.5 mg tablet 2.5 mg PO DAILY 08/06/24 08/06/24 History melatonin 3 mg tablet 3 mg PO HS 08/06/24 08/06/24 History metoprolol tartrate 25 mg tablet 12.5 mg PO Q12H 08/06/24 08/06/24 History nicotine (polacrilex) 2 mg gum 4 mg buccal Q4H PRN Each Smoking 08/06/24 08/06/24 History (Nicorette) Break omeprazole 40 mg capsule,delayed 40 mg PO BID 08/06/24 08/06/24 History release oxycodone 5 mg tablet 5 mg PO Q6H PRN Pain 08/06/24 08/06/24 History sennosides 8.6 mg tablet (senna) 8.6 mg PO DAILY PRN Constipation 08/06/24 08/06/24 History trazodone 50 mg tablet 50 mg PO HS 08/06/24 08/06/24 History Past Med/Surg History Problem List (Updated 08/08/24 @ 10:08 by Den Diaz PA-C) Axillary nerve palsy Anemia (Acute) Tachycardia (Acute) Pneumonia (Acute) SOB (shortness of breath) (Acute) Pulmonary emboli (Acute) Hypomagnesemia (Acute) Pleuritic chest pain (Acute) Pulmonary abscess Hypomagnesemia BECKA (generalized anxiety disorder) Severe sepsis Empyema Cavitary lesion of lung HAP (hospital-acquired pneumonia) Medical History Depression Social History Smoking Status: Current some day smoker Tobacco Type: Cigars Cigarettes Per Day: 1 per week; Hx Alcohol Use: Yes (last drink 07/25, sober before that) Hx Substance Use: No Preferred Language: Greek Communication Ability: Effective Television Installer Helper Required: No Beliefs That Will Affect Care: None Current Living Situation: Alone Feels Safe at Home: Yes Review of Systems All systems reviewed & are unremarkable except as noted in HPI & below. Physical Exam . * General: Alert and oriented, no acute distress * Constitutional: well-developed, well-nourished. * Respiratory: Normal respiratory effort, no distress * Gastrointestinal: No tenderness to palpation, no rigidity or guarding. * Skin: No rash or lesion. * Neurologic: Grossly normal * Musculoskeletal: Left upper extremity with no obvious deformity or overlying skin changes. No open wounds, skin breakdowns, other lesions of the upper arm appreciated. Diffuse deep soft tissue effusion, induration of the triceps noted. Diffuse mild TTP throughout the proximal triceps muscle belly. No TTP of the rotator cuff, deltoid/shoulder region, elbow, forearm, wrist/hand. AROM shoulder flexion and abduction severely limited secondary to weakness. AROM elbow flexion/extension, wrist flexion/extension, finger flexion/extension/opposition intact without assistance. Shoulder shrug intact and equal. Sensation intact radial/median/ulnar nerve distribution. Brisk capillary refill at fingers. Results & Data Results & Data Laboratory Results . 08/06/24 19:37 Gram Stain - Final Sputum, Expectorated Sputum Culture - Final Streptococcus constellatus 08/06/24 15:38 Aerobic Blood Culture - Preliminary Blood No growth in Aerobic bottle after 24 hours. Anaerobic Blood Culture - Final 08/06/24 11:17 Aerobic Blood Culture - Preliminary Blood No growth in Aerobic bottle after 24 hours. Anaerobic Blood Culture - Preliminary No growth in Anaerobic bottle after 24 hours. 08/06/24 10:31 Aerobic Blood Culture - Preliminary Blood No growth in Aerobic bottle after 24 hours. Anaerobic Blood Culture - Preliminary No growth in Anaerobic bottle after 24 hours. 08/08/24 08/07/24 08/07/24 01:59 20:13 18:56 WBC 11.41 H RBC 3.35 L Hgb 7.4 L 7.6 L Cancelled Hct 24.4 L 24.4 L Cancelled MCV 72.8 L MCH 22.1 L MCHC 30.3 L RDW Std Deviation 51.2 H RDW Coeff of Betsy 19.6 H Plt Count 601 H MPV 8.7 L Heparin Anti-Xa, Unfract 0.37 0.11 L Sodium 135 L Potassium 4.3 Chloride 103 Carbon Dioxide 25 Anion Gap 7 BUN 5 L Creatinine 0.71 Est Cr Clr Drug Dosing 125.1 eGFR 121.94 BUN/Creatinine Ratio 7.0 L Glucose 95 Calcium 8.4 L Iron Transferrin Ferritin Total Bilirubin 0.5 AST 60 H ALT 78 H Alkaline Phosphatase 107 H Total Protein 6.2 Albumin 2.5 L Globulin 3.7 Albumin/Globulin Ratio 0.7 L Vitamin B12 Folate 08/07/24 08/07/24 08/07/24 11:04 11:00 03:59 WBC RBC Hgb 8.2 L Hct 26.8 L MCV MCH MCHC RDW Std Deviation RDW Coeff of Betsy Plt Count MPV Heparin Anti-Xa, Unfract 0.19 L Sodium Potassium Chloride Carbon Dioxide Anion Gap BUN Creatinine Est Cr Clr Drug Dosing eGFR BUN/Creatinine Ratio Glucose Calcium Iron < 10 L Transferrin 201 Ferritin 113.6 Total Bilirubin AST ALT Alkaline Phosphatase Total Protein Albumin Globulin Albumin/Globulin Ratio Vitamin B12 729 Folate 12.70 Diagnostic Findings . Cervical Spine CT 08/07/24 16:57 CT cervical spine without IV contrast History: Left arm weakness Comparison: None Technique: Using multidetector thin collimation helical acquisition technique, axial, coronal and sagittal CT images through the cervical spine were obtained without intravenous contrast. Dose reduction techniques were achieved by using automatic exposure control and/or adjustment of mA and/or kV according to patient size and/or use of iterative reconstruction technique. Findings: The cervical vertebrae are normally aligned. Normal cervical lordosis. No acute fracture or subluxation. No prevertebral edema. There is no disc height narrowing at any level. The findings on a level by level basis are as follows: C2-3: No spinal canal or neural foraminal stenosis C3-4: No spinal canal or neural foraminal stenosis C4-5: No spinal canal or neural foraminal stenosis C5-6: No spinal canal or neural foraminal stenosis C6-7: No spinal canal or neural foraminal stenosis C7-1: No spinal canal or neural foraminal stenosis No abnormality of the paraspinous soft tissues. Scattered patchy nodular opacities, and some streaky bandlike atelectasis is seen at the lung apices. Impression: No acute fracture or traumatic subluxation. Nodular opacities and atelectasis at the lung apices, which may be infectious/inflammatory. Electronically signed by Don Kat 08-07-2024 6:[address] 08/07/24 16:57 CT head without contrast History: Left arm weakness Comparison: None Technique: Using multidetector thin collimation helical acquisition technique, axial, coronal and sagittal CT images from the skull base to the vertex were obtained without intravenous contrast. Dose reduction techniques were achieved by using automatic exposure control and/or adjustment of mA and/or kV according to patient size and/or use of iterative reconstruction technique. Findings: No intracranial hemorrhage, mass-effect, or midline shift. The ventricles are proportionate to the cerebral sulci. The lara to white matter differentiation of the cerebral hemispheres is preserved. The basal cisterns are patent. The visualized paranasal sinuses are clear. Mastoid air cells are clear. Impression: No acute intracranial pathology. Electronically signed by Don Kat 08-07-2024 6:[address] 08/07/24 16:57 CT left shoulder and left humerus without contrast History: Pain/weakness Comparison: None Technique: CT performed of the extremity without IV contrast. Dose reduction techniques were achieved by using automatic exposure control and/or adjustment of mA and/or kV according to patient size and/or use of iterative reconstruction technique. Findings: No fracture or dislocation. Joint spaces are normally aligned. No visualized soft tissue abnormality. No soft tissue masses. No visualized left axillary lymphadenopathy. No aggressive osseous lesion. Patchy nodular opacities seen throughout the left lung. Extensive areas of consolidative opacity about the periphery of the lingula and left lower lobe, demonstrating internal cavitation. Impression: No bony abnormality of the left shoulder or left humerus. In the left lung, there is visualized prominent consolidative cavitary lesions peripherally, which may represent necrotizing pneumonia. Electronically signed by Don Kat 08-07-2024 6:[address] 08/07/24 16:57 CT left shoulder and left humerus without contrast History: Pain/weakness Comparison: None Technique: CT performed of the extremity without IV contrast. Dose reduction techniques were achieved by using automatic exposure control and/or adjustment of mA and/or kV according to patient size and/or use of iterative reconstruction technique. Findings: No fracture or dislocation. Joint spaces are normally aligned. No visualized soft tissue abnormality. No soft tissue masses. No visualized left axillary lymphadenopathy. No aggressive osseous lesion. Patchy nodular opacities seen throughout the left lung. Extensive areas of consolidative opacity about the periphery of the lingula and left lower lobe, demonstrating internal cavitation. Impression: No bony abnormality of the left shoulder or left humerus. In the left lung, there is visualized prominent consolidative cavitary lesions peripherally, which may represent necrotizing pneumonia. Electronically signed by Don Kat 08-07-2024 6:47 PM PG Care Time/CCT Total # of Minutes Spent Total Time Spent with Patient: Total time spent is greater than 50% in coordination of care (as documented) at patient's floor/unit and/or counseling patient: [place] [address] IN/OBS CONSULT LVL 3,45M Patient Type New History Problem Focused Diagnoses Axillary nerve palsy G54.0
[2024-08-08] MEDS: IPRATROPIUM BROMIDE NEB SOLN 0.02% 0.5MG/2.5ML VIAL ONE (09:43)
[2024-08-08] MEDS: LEVALBUTEROL 1.25 MG/3 ML NEB ONE (09:43)
[2024-08-08] MEDS: VANCOMYCIN LEVEL ONE (10:15)
[2024-08-08 10:52] LABS: ANTI-Xa, UFH(UnfractionatedHep 0.32 IU/ml (0.3-0.7)
[2024-08-08 10:56] LABS: Quantiferon TB1 0.037 IU/mL; Quantiferon TB2 0.038 IU/mL
--- NOTE | 2024-08-08 10:57 | Pulmonology Progress Note ---
Date of Service August 08, 2024 Assessment & Plan (1) Abnormal chest CT: (2) Cavitary lesion of lung: (3) HAP (hospital-acquired pneumonia): (4) Acute respiratory failure with hypoxia: (5) Pleuritic chest pain: (6) Cigar smoker: (7) Pulmonary emboli: Acute cor pulmonale presence: unspecified Chronicity: acute P ulmonary embolism type: unspecified Qualified Code(s): I26.99 - Other pulmonary embolism without acute cor pulmonale Plan Impression: 34-year-old male with history of substance abuse who was just discharged from [facility] (no records available) to an inpatient psych unit. He was brought to the emergency room with fevers, chills, shortness of breath. CT scan shows cavitary lesions concerning for septic emboli versus multifocal necrotic pneumonia. 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 No birds or poultry nearby CTA chest 08/06/2024 personally reviewed: Patchy groundglass opacities appreciated bilaterally 4.4 cm cavitary lesion in the right upper lobe, 6.7 cm cavitary lesion in the left lower lobe abutting the pleura Multiple other small cavity lesions appreciated on the periphery on the right side Significant precarinal lymphadenopathy 2D echo 08/07/2024: EF 55-50%, RV size and function normal, no overt vegetations. --Multiple cavitary lesions with mediastinal lymphadenopathy Respiratory bio fire negative for everything on 08/06/2024 Nasal MRSA negative, procalcitonin 0.18 Patient does work, as per the patient he gets checked with TB skin testing on an yearly basis and the always been negative Patient seem to have cavitary lesion on the chest x-ray done 07/28/2024 with patchy opacities bilaterally Sputum culture growing Streptococcus constellatus HIV negative --Acute respiratory failure with hypoxia Multifactorial Pulmonary emboli as well as patchy opacities and cavitary lesion Continue with O2 supplementation to keep oxygen saturation between 90-92% -- Acute pulmonary emboli sPESI 0 Continue with heparin drip --Cigar smoker --History of rheumatoid arthritis Not on any medications at home Plan: Given the leukocytosis which is neutrophilic, possibility of it being an bacterial infection is high. 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 It may contain grammatical, syntax or spelling errors.Any formal questions or concerns about the content, text or information contained within the body of this dictation should be directly addressed to the provider for clarification. Admission and Anticipated Discharge Date Admission Date: August 06, 2024 Subjective Patient seen and examined at bedside. No acute distress, nervous events overnight Saturating 90% on room air with heart rate in the low 110s Did complain of cough, is bringing up phlegm. No hemoptysis Denies any chest pain No nausea or vomiting Review of Systems 2 Review of Systems: All systems reviewed & are unremarkable except as noted in Subjective Physical Exam 2 Physical Exam: Constitutional: No acute distress HEENT: EOMI, PERRLA Respiratory system: Decreased air entry bilaterally, no wheeze, no rhonchi, positive crackles bilateral lower lobe CVS: S1-S2 positive, no murmurs or gallops, tachycardia Abdomen: Soft, nontender, nondistended, positive bowel sounds x4 Extremities: +2 pulses bilaterally radialis/ dorsalis pedis, no cyanosis, +1 pitting edema bilateral lower extremity Neuro: Awake alert oriented x3 Psych: Normal mood and affect G/U: No Thapa Skin: no rashes, warm and dry Lymphatic: no cervical or axillary lymphadenopathy Results & Data Results & Data Vital Signs (Past 12 Hours) Vital Signs Temp Pulse Pulse Pulse Resp BP Pulse Ox 08/08/24 08:53 37.2 C 08/08/24 07:36 37.2 C 109 H 21 110/72 91 08/08/24 07:20 99 H 08/08/24 02:15 36.5 C 112 H 20 114/71 91 08/07/24 23:27 108 H 08/07/24 23:00 36.3 C L 130 H 18 121/88 94 O2 Del Method 08/08/24 08:53 08/08/24 07:36 Room Air 08/08/24 07:20 08/08/24 02:15 Room Air 08/07/24 23:27 08/07/24 23:00 Room Air Laboratory Results 08/08/24 01:59 08/08/24 01:59 PG Care Time/CCT Total # of Minutes Spent Total Time Spent with Patient: Total time spent is greater than 50% in coordination of care (as documented) at patient's floor/unit and/or counseling patient: Coding Level of Care Code 06560 SUB INP/OBS CARE 3/50MIN Diagnoses Abnormal chest CT R93.89 Cavitary lesion of lung J98.4 HAP (hospital-acquired pneumonia) J18.9; Y95 Acute respiratory failure with hypoxia J96.01 Pleuritic chest pain R07.81 Cigar smoker F17.290 Pulmonary emboli I26.99 Acute cor pulmonale presence: unspecified Chronicity: acute Pulmonary embolism type: unspecified
--- NOTE | 2024-08-08 11:17 | Pharmacy Report ---
Pharmacy PK ABX Note - Date of Service August 08, 2024 - Assessment and Plan Assessment 34 year old M receiving vancomycin/Zosyn for treatment of CAP r/o septic emboli, empyema, and infective endocarditis. Pertinent microbiologic data includes: negative MRSA nasal swab, negative respiratory biofire, blood cultures pending, Quantiferon TB Gold pending, Coccidoides AB serum pending, and Aspergillus antibodies pending. Recently discharged from [facility] on 08/05 s/p intubation due to methadone overdose. 08/08 * Sputum culture growing strep constellatus. Await ID input (consulted yesterday). Day # 2 of antimicrobial therapy. Plan Vancomycin * Current regimen: 1000 mg IV every 8 hours * Trough level obtained 08/08/24 @0930 resulted as 11.4 mcg/mL. This is predicted to achieve target AUC/LOIS of 400-600 mg/L.hr * Predicted AUC at steady state: 495 mg/L.hr * Continue 1000 mg IV every 8 hours * Will repeat level 08/11@0900 Pharmacy will continue to follow and will adjust dose/frequency as necessary. Thank you. Pharmacy has transitioned to AUC monitoring for vancomycin. AUC/LOIS is the preferred PK/PD target and is associated with decreased risk of nephrotoxicity compared to traditional trough targets.
--- NOTE | 2024-08-08 12:35 | Hospitalist Progress Note ---
Date of Service August 08, 2024 Assessment & Plan (1) Severe sepsis: (2) Hypomagnesemia: (3) Depression: (4) BECKA (generalized anxiety disorder): (5) Empyema: (6) Cavitary lesion of lung: (7) HAP (hospital-acquired pneumonia): Plan 34 yo male with pmhx of severe BECKA/depression c/b recurrent suicidal ideations, rheumatoid arthritis, hx of external hydrocephalus, hx of alcohol use disorder (in early remission, last early July) who presents for fevers, SOB and chills 2/2 severe sepsis with septic emboli/lung abscesses. #Severe Sepsis #HAP #Lung Abscess w/ Cavitary Lesions #R/o Empyema #R/o Septic Emboli #R/o Infective Endocarditis -patient has fever, tachycardia, tachypnea, and leukocytosis with elevated LA suggestive of severe sepsis -lung imaging concerning for significant for numerous cavitary lesions w/ concern for lung abscess and potential septic emboli -unable to do Hernandez criteria at his time due cultures just drawn, does have 2 minor criteria with splinter hemorrhages and fever -likely 2/2 aspiration pneumonia from recent intubation now worsening, has splinter hemorrhages on exam concerning for potential infectious endocarditis Plan: -pulmonary consult, appreciate recs -broaden abx to vanc/zosyn, get additional blood culture for 3 cultures total, MRSA swab ordered, sputum culture ordered, IS and flutter valve ordered -continue fluid resuscitation -CT abdomen/pelvis and TTE ordered for septic emboli workup -check TB, aspergillus, coccidioides given concern for cavitary lung disease, lower concern at this time -will need CT chest in 6 months to placing judge resolution -ID consult in AM, 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 -trend troponin, lactic acid 08/07 clinically improving fever resolving leukocytosis improving blood culture: pending sputum culture: pending echo: EF 55-60%, no overt vegetations noted continue Vanco + Zosyn appreciate Pulm recommendations records and imaging studies from [facility] obtained ID consulted 08/08 afebrile since last night clinically improving blood cultures negative so far continue abx Awaiting further recs from Pulm and ID, appreciate the input #Right Segmental/Subsegmental PE -PESI score of 106 points making patient high risk PE -segmental and subsegmental PEs in right lung -not requiring oxygen Plan: - BNP: normal - echo: no RV strain -- hemodynamically stable on room air continue IV Heparin monitor H&H partial hypercoag work up sent- mother has history of PE- will need full work up by Hematology service as outpatient #Anemia, Iron deficiency -- Hg dropped from 8 to 6.4 no overt signs of active bleeding -- transfused 1 unit pRBC Hg improved to 8.2 anemia panel ordered continue to monitor closely 08/08 Hg 7.4 no signs of overt bleed Iron < 10 will order IV Fe Oral Fe also started will need further eval for iron deficiency anemia as outpatient #Subacute HFmid EF (EF 50%) -likely in setting of alcohol use and methadone use (although patient states one time event) Plan: -f/u echo results -check A1c, lipids, TSH for risk stratifcation -continue metoprolol, hold lisinopril for now given severe sepsis -- repeat echo: EF 55-60% #Gamma Gap -check HIV/Hep C, has risk factors given methadone overdose #Severe BECKA/MDD #Hx of Suicidal Ideation -patient denies suicidial/homicidal ideation at this time -appears anxious but not decompensated Plan: -low threshold for psychiatric consult and sitter -continue home medications 08/08 mood stable denies suicidal ideation #Hypomagnesemia -replenish #Rheumatoid Arthritis -f/u outpatient plan of care discussed with patient and with his parents over the phone, in detail and at length all questions answered they are understanding, agreeable, comfortable with the plan of care Admission and Anticipated Discharge Date Admission Date: August 06, 2024 Subjective seen resting in bed, sitting up comfortable, not in distress states he feels improved compared to yesterday less short of breath and cough less chest discomfort no abdominal pain, nausea, melena/hematochezia mood is ok no other new symptoms Review of Systems Review of Systems: all noted and negative except for above Physical Exam Physical Exam: General- oriented x 3, not in distress, speaks in sentences with no effort or accessory muscle use Eyes- anicteric Neck- no JVD Lungs- mild rhonchi at the bases no wheezing Heart- normal rate, regular rhythm; no murmurs Abdomen- normal bowel sounds, nondistended, soft, nontender Extremities- no pretibial edema, no calf tenderness Neuro- alert, oriented x 3; LUE strength: 1/5 Skin- warm & dry Results & Data Results & Data Vital Signs (Past 12 Hours) Vital Signs Temp Pulse Pulse Resp BP Pulse Ox O2 Del Method 08/08/24 11:21 Room Air 08/08/24 08:53 37.2 C 08/08/24 07:36 37.2 C 109 H 21 110/72 91 Room Air 08/08/24 07:20 99 H 08/08/24 02:15 36.5 C 112 H 20 114/71 91 Room Air all noted and reviewed including below
--- NOTE | 2024-08-08 15:11 | Infectious Disease Consult ---
Date of Service August 08, 2024 Telehealth Information I performed this visit using a real-time telehealth connection between my location and the patients location ([facility]). After connecting through interactive tele-video, patient was identified by name and date of and/or wristband check.Patient (or authorized healthcare student services representative) was informed that this was a telemedicine visit and it was being conducted confidentially over secure lines. My office door was closed and no one else was present in the room with me.Patient (or authorized healthcare student services representative) provided consent to proceed with the visit, expressed an understanding of privacy and security of the telemedicine visit, and gave permission to have a hospital student services representative in the room in order to assist with the visit and to conduct portions of the visit, as needed. I informed the patient (or authorized healthcare student services representative) that I reviewed their record and presented the opportunity for them to ask any questions regarding the visit today. The patient agreed to participate. Assessment & Plan (1) Cavitary pneumonia: (2) Pulmonary emboli: (3) Empyema: (4) Severe sepsis: (5) Substance use disorder: Plan Based on the cultures isolated from deep tracheal aspirate and BAL at [place] which grew Haemophilus influenzae and the sputum culture isolated at [facility] which grew Streptococcus constellatus, I would recommend stopping all current antibiotics and starting on IV Unasyn. Continue on IV Unasyn today and tomorrow and if he remained afebrile by the morning of 08/10/2024, consider stepping down to oral Augmentin 875/125 TID. He will require at least 4 weeks of oral Augmentin with a repeat CT scan of the chest in 3 weeks from discharge (CT will be ordered by me to be done in [place]). Please consult with Interventional Radiology if there is any possibility to drain the loculated pleural effusion/empyema on the left side. I will also arrange for him to be seen in my clinic within the next 6 weeks. History of Present Illness History of Present Illness Kermit is a 34-year-old young man with medical history of major depressive disorder/generalized anxiety disorder, with a history of suicide ideation, polysubstance use disorder, and migraines who was admitted to [facility] on 08/06 because of fever, chills and shortness of breath. He recently got discharged from [facility] on 08/05 after a long hospital stay because of methadone overdose, shock and acute hypoxic respiratory failure requiring intubation. He had a CTA of the chest/abdomen/pelvis performed on presentation which was consistent with multifocal pneumonia with deep tracheal aspirate around that time growing Haemophilus influenzae. He was successfully extubated on the 3rd day of admission and completed around 9 days of antibiotics (Unasyn and Augmentin) while inpatient before being discharged to an inpatient Psychiatry hospital on 08/05/2024. During the night of the that day, he was noticed to be febrile and short of breath and had to be transferred to [facility] for further management. On presentation, he was febrile at 38, tachycardic at 132; the rest of the vitals were within normal limits. Initial workup showed leukocytosis of 15.9 (ANC 13), elevated lactate at 3, negative RVP panel and negative QuantiFERON test. CTA of the chest performed on admission showed segmental and subsegmental emboli within the right lung with extensive bilateral pulmonary opacifications with thick walled cavitations, the largest being within the basal left lower lobe. ID team was consulted for further recommendations and to help guide antibiotic treatment. Allergies Allergy/AdvReac Type Severity Reaction Status Date / Time naproxen Allergy Rash Verified 08/06/24 13:57 Home Medications Medication Instructions Recorded Confirmed Type acetaminophen 325 mg tablet 650 mg PO Q6H PRN Pain 08/06/24 08/06/24 History (Tylenol) benzonatate 100 mg capsule 100 mg PO TID PRN Cough 08/06/24 08/06/24 History calcium carbonate (Calcium 500) 1,000 mg PO TID PRN Gastric 08/06/24 08/06/24 History Distress dextromethorphan-guaifenesin 10 10 ml PO Q6H PRN Cough 08/06/24 08/06/24 History mg-200 mg/5 mL oral liquid escitalopram oxalate 5 mg tablet 5 mg PO DAILY 08/06/24 08/06/24 History lisinopril 2.5 mg tablet 2.5 mg PO DAILY 08/06/24 08/06/24 History melatonin 3 mg tablet 3 mg PO HS 08/06/24 08/06/24 History metoprolol tartrate 25 mg tablet 12.5 mg PO Q12H 08/06/24 08/06/24 History nicotine (polacrilex) 2 mg gum 4 mg buccal Q4H PRN Each Smoking 08/06/24 08/06/24 History (Nicorette) Break omeprazole 40 mg capsule,delayed 40 mg PO BID 08/06/24 08/06/24 History release oxycodone 5 mg tablet 5 mg PO Q6H PRN Pain 08/06/24 08/06/24 History sennosides 8.6 mg tablet (senna) 8.6 mg PO DAILY PRN Constipation 08/06/24 08/06/24 History trazodone 50 mg tablet 50 mg PO HS 08/06/24 08/06/24 History Patient History Medical History Depression Social History Smoking Status: Current some day smoker Tobacco Type: Cigars Cigarettes Per Day: 1 per week; Hx Alcohol Use: Yes (last drink 07/25, sober before that) Hx Substance Use: No Preferred Language: Peruvian Communication Ability: Effective Ground Equipment Mechanic Required: No Beliefs That Will Affect Care: None Current Living Situation: Alone Feels Safe at Home: Yes Review of Systems Negative except for what was mentioned in the H&P. Physical Exam Could not be performed given that the encounter was conducted via TeleMed. Results & Data Vital Signs (Past 12 Hours) Vital Signs Temp Pulse Pulse Resp BP Pulse Ox O2 Del Method 08/08/24 11:21 Room Air 08/08/24 08:53 37.2 C 08/08/24 07:36 37.2 C 109 H 21 110/72 91 Room Air 08/08/24 07:20 99 H 08/08/24 02:15 36.5 C 112 H 20 114/71 91 Room Air Laboratory Results Microbiology: 08/06: 3 sets of blood culture negative to date 08/06: Sputum culture growing Streptococcus constellatus Diagnostic Findings CTA chest on 08/06: 1. Segmental and subsegmental pulmonary emboli within the right lung. 2. Extensive bilateral pulmonary opacities with thick-walled cavitations as above within both the upper and lower lung zones. Dominant large cavitation within the basal left lower lobe with air-fluid level is suggestive of an abscess. Findings are likely infectious or inflammatory with necrotic pneumonia. Pneumonia with septic emboli versus metastatic disease are additional considerations. Follow-up with pulmonology and CT imaging is needed. 3. Mediastinal and hilar lymphadenopathy. 4. Small loculated left-sided pleural effusion with pleural thickening may represent a developing empyema. (2) Pulmonary emboli Acute cor pulmonale presence: unspecified Chronicity: acute Pulmonary embolism type: unspecified Qualified Code(s): I26.99 - Other pulmonary embolism without acute cor pulmonale
[2024-08-08] MEDS: AMPICILLIN/SULBACTAM SOD 3,000 MG/100 ML BAG IV SCH (21:22)
[2024-08-09] MEDS: COUGH DROP (SUGAR FREE) LOZ 24 LOZ/1 BOX BUCCAL PRN (02:00)
[2024-08-09 06:43] LABS: Hematocrit (blood only) 24.4 % (42.0-52.0); Hemoglobin 7.5 g/dl (14.0-18.0); Mean Corpuscular Hemoglobin 22.3 pg (25.0-34.0); Mean Corpuscular Volume 72.4 fL (80.0-100.0); Platelet Count 609 K/uL (130-400); RDW Standard Deviation 51.3 fL (36.4-46.3); Red Blood Count 3.37 M/uL (4.70-6.10); White Blood Count 8.48 K/ul (4.8-10.8)
[2024-08-09 07:02] LABS: Alanine Aminotransferase 119.0 U/L (7-52); Albumin Globulin Ratio 0.8 (0.9-2); Alkaline Phosphatase 117.0 U/L (34-104); Anion Gap 8.0 (3-11); Bilirubin,Total 0.4 mg/dl (0.2-1.0); Blood Urea Nitrogen 4.0 mg/dl (6-23); Calcium 8.5 mg/dl (8.6-10.3); Carbon Dioxide 26.0 mmol/L (21-32); Chloride 103.0 mmol/L (98-107); Creatinine Clr Calc Pharmacy 116.9 ml/min; Globulin 3.6 gm/dl (2.5-4.0); Glucose 97.0 mg/dl (70-99(Fasting)); Potassium 4.0 mmol/L (3.5-5.1); Sodium 137.0 mmol/L (136-145); Total Protein 6.4 gm/dl (6.0-8.3)
[2024-08-09 07:15] LABS: ANTI-Xa, UFH(UnfractionatedHep 0.31 IU/ml (0.3-0.7)
--- NOTE | 2024-08-09 11:20 | Pulmonology Progress Note ---
Date of Service August 09, 2024 Assessment & Plan (1) Abnormal chest CT: (2) Cavitary lesion of lung: (3) HAP (hospital-acquired pneumonia): (4) Acute respiratory failure with hypoxia: (5) Pleuritic chest pain: (6) Cigar smoker: (7) Pulmonary emboli: Acute cor pulmonale presence: unspecified Chronicity: acute P ulmonary embolism type: unspecified Qualified Code(s): I26.99 - Other pulmonary embolism without acute cor pulmonale Plan Impression: 34-year-old male with history of substance abuse who was just discharged from [facility] (no records available) to an inpatient psych unit. He was brought to the emergency room with fevers, chills, shortness of breath. CT scan shows cavitary lesions concerning for septic emboli versus multifocal necrotic pneumonia. Social history: Smokes cigar once a week, no cigarette smoking, works in the [employer] Had cats and dog at home. No birds or poultry nearby CTA chest 08/06/2024 personally reviewed: Patchy groundglass opacities appreciated bilaterally 4.4 cm cavitary lesion in the right upper lobe, 6.7 cm cavitary lesion in the left lower lobe abutting the pleura Multiple other small cavity lesions appreciated on the periphery on the right side Significant precarinal lymphadenopathy 2D echo 08/07/2024: EF 55-50%, RV size and function normal, no overt vegetations. --Multiple cavitary lesions with mediastinal lymphadenopathy Respiratory bio fire negative for everything on 08/06/2024 Nasal MRSA negative, procalcitonin 0.18 I was able to personally look at the CAT scan of the chest which was done 07/21/2024 at [place], patient had dense consolidative process of the left lower lobe as well as patchy groundglass opacities bilaterally likely representing multifocal pneumonia BAL done at [facility] grew haemophilus influenza, The cavitary lesions is most likely able effusion off that pneumonia Patient does work, as per the patient he gets checked with TB skin testing on an yearly basis and the always been negative Goal QuantiFERON negative on 08/06/2024, given the patient has low probability of TB okay to discontinue isolation Patient seem to have cavitary lesion on the chest x-ray done 07/28/2024 with patchy opacities bilaterally Sputum culture growing Streptococcus constellatus HIV negative --Acute respiratory failure with hypoxia Multifactorial Pulmonary emboli as well as patchy opacities and cavitary lesion Continue with O2 supplementation to keep oxygen saturation between 90-92% -- Acute pulmonary emboli sPESI 0 Continue with heparin drip --Cigar smoker --History of rheumatoid arthritis Not on any medications at home Plan: Goal QuantiFERON negative on 08/06/2024, okay to take the patient off isolation. Would recommend infectious disease control as well as infectious disease to weigh in the expertise Patient has very minimal loculated effusion on the left side, I do not think it is amenable to thoracentesis I was able to personally look at the CAT scan of the chest which was done 07/21/2024 at [place], patient had dense consolidative process of the left lower lobe as well as patchy groundglass opacities bilaterally likely representing multifocal pneumonia The cavitary lesion is most likely able effusion off that pneumonia Would recommend to continue with antibiotics for at least 4-6 weeks Follow-up blood cultures Case was discussed with primary team I spent more than 50 minutes looking in the chart, images, discussing the plan of care with the patient, RN as well as primary team Please note the above document was generated using voice recognition software. It may contain grammatical, syntax or spelling errors.Any formal questions or concerns about the content, text or information contained within the body of this dictation should be directly addressed to the provider for clarification. Admission and Anticipated Discharge Date Admission Date: August 06, 2024 Subjective Patient seen and examined at bedside. No acute distress, no delusions overnight He was saturating 97% on room air Stated that he is feeling much better Bringing up clear phlegm. Denies any hemoptysis Pleuritic chest pain has significantly decreased in intensity Has been afebrile Review of Systems 2 Review of Systems: All systems reviewed & are unremarkable except as noted in Subjective Physical Exam 2 Physical Exam: Constitutional: No acute distress HEENT: EOMI, PERRLA Respiratory system: Decreased air entry bilaterally, no wheeze, no rhonchi, positive crackles bilateral lower lobe CVS: S1-S2 positive, no murmurs or gallops, tachycardia Abdomen: Soft, nontender, nondistended, positive bowel sounds x4 Extremities: +2 pulses bilaterally radialis/ dorsalis pedis, no cyanosis, +1 pitting edema bilateral lower extremity Neuro: Awake alert oriented x3 Psych: Normal mood and affect G/U: No Thapa Skin: no rashes, warm and dry Lymphatic: no cervical or axillary lymphadenopathy Results & Data Results & Data Vital Signs (Past 12 Hours) Vital Signs Temp Pulse Pulse Resp BP Pulse Ox O2 Del Method 08/09/24 11:10 Room Air 08/09/24 08:00 99 H 08/09/24 07:42 36.8 C 102 H 20 114/77 94 Room Air 08/09/24 04:46 100 H 117/76 08/09/24 03:27 37.0 C 109 H 20 115/71 91 Room Air Laboratory Results 08/09/24 06:21 08/09/24 06:21 PG Care Time/CCT Total # of Minutes Spent Total Time Spent with Patient: Total time spent is greater than 50% in coordination of care (as documented) at patient's floor/unit and/or counseling patient: Coding Level of Care Code 19348 SUB INP/OBS CARE 3/50MIN Diagnoses Abnormal chest CT R93.89 Cavitary lesion of lung J98.4 HAP (hospital-acquired pneumonia) J18.9; Y95 Acute respiratory failure with hypoxia J96.01 Pleuritic chest pain R07.81 Cigar smoker F17.290 Pulmonary emboli I26.99 Acute cor pulmonale presence: unspecified Chronicity: acute Pulmonary embolism type: unspecified
--- NOTE | 2024-08-09 15:54 | Hospitalist Progress Note ---
Date of Service August 09, 2024 Assessment & Plan (1) Severe sepsis: (2) Hypomagnesemia: (3) Depression: (4) BECKA (generalized anxiety disorder): (5) Empyema: (6) Cavitary lesion of lung: (7) HAP (hospital-acquired pneumonia): Plan 34 yo male with pmhx of severe BECKA/depression c/b recurrent suicidal ideations, rheumatoid arthritis, hx of external hydrocephalus, hx of alcohol use disorder (in early remission, last early July) who presents for fevers, SOB and chills 2/2 severe sepsis with septic emboli/lung abscesses. #Severe Sepsis #HAP #Lung Abscess w/ Cavitary Lesions #R/o Empyema #R/o Septic Emboli #R/o Infective Endocarditis -patient has fever, tachycardia, tachypnea, and leukocytosis with elevated LA suggestive of severe sepsis -lung imaging concerning for significant for numerous cavitary lesions w/ concern for lung abscess and potential septic emboli -unable to do Hernandez criteria at his time due cultures just drawn, does have 2 minor criteria with splinter hemorrhages and fever -likely 2/2 aspiration pneumonia from recent intubation now worsening, has splinter hemorrhages on exam concerning for potential infectious endocarditis Plan: -pulmonary consult, appreciate recs -broaden abx to vanc/zosyn, get additional blood culture for 3 cultures total, MRSA swab ordered, sputum culture ordered, IS and flutter valve ordered -continue fluid resuscitation -CT abdomen/pelvis and TTE ordered for septic emboli workup -check TB, aspergillus, coccidioides given concern for cavitary lung disease, lower concern at this time -will need CT chest in 6 months to broom man resolution -ID consult in AM, likely will need half-way abx -trend troponin, lactic acid 08/08 clinically improving fever resolved since yesterday leukocytosis resolved blood culture:negative x 48 hours sputum culture: Streptococcus echo: EF 55-60%, no overt vegetations noted given Vanco + Zosyn appreciate Pulm recommendations- does not recommend drainage of L lower lobe abscess due to small size appreciate ID recommendations 08/09- "Based on the cultures isolated from deep tracheal aspirate and BAL at [place] which grew Haemophilus influenzae and the sputum culture isolated at [facility] which grew Streptococcus constellatus, I would recommend stopping all current antibiotics and starting on IV Unasyn. Continue on IV Unasyn today and tomorrow and if he remained afebrile by the morning of 08/10/2024, consider stepping down to oral Augmentin 875/125 TID. He will require at least 4 weeks of oral Augmentin with a repeat CT scan of the chest in 3 weeks from discharge (CT will be ordered by me to be done in [place])." records and imaging studies from [facility] obtained #Right Segmental/Subsegmental PE -PESI score of 106 points making patient high risk PE -segmental and subsegmental PEs in right lung -not requiring oxygen Plan: - BNP: normal - echo: no RV strain -- hemodynamically stable on room air continue IV Heparin monitor H&H partial hypercoag work up sent- mother has history of PE- will need full work up by Hematology service as outpatient #Anemia, Iron deficiency -- Hg dropped from 8 to 6.4 no overt signs of active bleeding -- transfused 1 unit pRBC Hg improved to 8.2 anemia panel ordered continue to monitor closely 6/30 Hg 7.4 no signs of overt bleed Iron < 10 will order IV Fe Oral Fe also started will need further eval for iron deficiency anemia as outpatient #Subacute HFmid EF (EF 50%) -likely in setting of alcohol use and methadone use (although patient states one time event) Plan: -f/u echo results -check A1c, lipids, TSH for risk stratifcation -continue metoprolol, hold lisinopril for now given severe sepsis -- repeat echo: EF 55-60% #Gamma Gap -check HIV/Hep C, has risk factors given methadone overdose #Severe BECKA/MDD #Hx of Suicidal Ideation -patient denies suicidial/homicidal ideation at this time -appears anxious but not decompensated Plan: -low threshold for psychiatric consult and sitter -continue home medications 08/09 mood stable denies suicidal ideation #Hypomagnesemia -replenish #Rheumatoid Arthritis -f/u outpatient plan of care discussed with patient and with his parents over the phone, in detail and at length all questions answered they are understanding, agreeable, comfortable with the plan of care Admission and Anticipated Discharge Date Admission Date: August 06, 2024 Subjective seen resting in bedside chair, comfortable states he continues to feel improved overall still having some productive cough, but improved less shortness of breath and chest pain no abdominal pain, GI bleeding appetite ok no other symptoms Review of Systems Review of Systems: all noted and negative except for above Physical Exam Physical Exam: General- oriented x 3, not in distress, speaks in sentences with no effort or accessory muscle use Eyes- anicteric Neck- no JVD Lungs- mild rhonchi left base no wheezing Heart- normal rate, regular rhythm; no murmurs Abdomen- normal bowel sounds, nondistended, soft, nontender Extremities- no pretibial edema, no calf tenderness Neuro- alert, oriented x 3; no gross focal neurologic deficits Skin- warm & dry Results & Data Results & Data Vital Signs (Past 12 Hours) Vital Signs Temp Pulse Pulse Resp BP Pulse Ox O2 Del Method 08/09/24 14:51 95 H 08/09/24 11:46 36.6 C 79 18 126/86 95 Room Air 08/09/24 11:10 Room Air 08/09/24 08:00 99 H 08/09/24 07:42 36.8 C 102 H 20 114/77 94 Room Air 08/09/24 04:46 100 H 117/76 all noted and reviewed including below
[2024-08-09] MEDS: IRON SUCROSE 300 MG in SODIUM CHLORIDE 0.9% 250 ML IV ONE (17:46)
[2024-08-09] MEDS: [UNRECOGNIZED DRUG - REMARK] ONE (21:04)
[2024-08-09] MEDS: APIXABAN 5 MG TABLET PO SCH (21:05)
--- NOTE | 2024-08-10 11:37 | Hospitalist Progress Note ---
Date of Service August 10, 2024 Assessment & Plan (1) Severe sepsis: (2) Hypomagnesemia: (3) Depression: (4) BECKA (generalized anxiety disorder): (5) Empyema: (6) Cavitary lesion of lung: (7) HAP (hospital-acquired pneumonia): Plan Per previous provider w/ addendum 34 yo male with pmhx of severe BECKA/depression c/b recurrent suicidal ideations, rheumatoid arthritis, hx of external hydrocephalus, hx of alcohol use disorder (in early remission, last early July) who presents for fevers, SOB and chills 2/2 severe sepsis with septic emboli/lung abscesses. #Severe Sepsis #HAP #Lung Abscess w/ Cavitary Lesions #R/o Empyema #R/o Septic Emboli #R/o Infective Endocarditis -patient has fever, tachycardia, tachypnea, and leukocytosis with elevated LA suggestive of severe sepsis -lung imaging concerning for significant for numerous cavitary lesions w/ concern for lung abscess and potential septic emboli -unable to do Hernandez criteria at his time due cultures just drawn, does have 2 minor criteria with splinter hemorrhages and fever -likely 2/2 aspiration pneumonia from recent intubation now worsening, has splinter hemorrhages on exam concerning for potential infectious endocarditis Plan: -pulmonary consult, appreciate recs -broaden abx to vanc/zosyn, get additional blood culture for 3 cultures total, MRSA swab ordered, sputum culture ordered, IS and flutter valve ordered -continue fluid resuscitation -CT abdomen/pelvis and TTE ordered for septic emboli workup -check TB, aspergillus, coccidioides given concern for cavitary lung disease, lower concern at this time -will need CT chest in 6 months to federal judge resolution -ID consult in AM, 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 will need termite inspector abx -trend troponin, lactic acid 08/08 clinically improving fever resolved since yesterday leukocytosis resolved blood culture:negative x 48 hours sputum culture: Streptococcus echo: EF 55-60%, no overt vegetations noted given Vanco + Zosyn appreciate Pulm recommendations- does not recommend drainage of L lower lobe abscess due to small size appreciate ID recommendations 08/09- "Based on the cultures isolated from deep tracheal aspirate and BAL at [place] which grew Haemophilus influenzae and the sputum culture isolated at [facility] which grew Streptococcus constellatus, I would recommend stopping all current antibiotics and starting on IV Unasyn. Continue on IV Unasyn today and tomorrow and if he remained afebrile by the morning of 08/10/2024, consider stepping down to oral Augmentin 875/125 TID. He will require at least 4 weeks of oral Augmentin with a repeat CT scan of the chest in 3 weeks from discharge (CT will be ordered by me to be done in [place]). I (Dr. Madison) will also arrange for him to be seen in my clinic within the next 6 weeks." records and imaging studies from [facility] obtained #Right Segmental/Subsegmental PE -PESI score of 106 points making patient high risk PE -segmental and subsegmental PEs in right lung -not requiring oxygen Plan: - BNP: normal - echo: no RV strain -- hemodynamically stable on room air continued IV Heparin -> pt was started on Eliquis, heparin stopped monitor H&H partial hypercoag work up sent- mother has history of PE- will need full work up by Hematology service as outpatient #Anemia, Iron deficiency -- Hg dropped from 8 to 6.4 no overt signs of active bleeding -- transfused 1 unit pRBC Hg improved to 8.2 anemia panel ordered continue to monitor closely 630 Hg 7.4 no signs of overt bleed Iron < 10 will order IV Fe Oral Fe also started 08/09 Hgb 7.5 7 will recheck H&H will need further eval for iron deficiency anemia as outpatient #Subacute HFmid EF (EF 50%) -likely in setting of alcohol use and methadone use (although patient states one time event) Plan: -f/u echo results -check A1c, lipids, TSH for risk stratifcation -continue metoprolol, hold lisinopril for now given severe sepsis -- repeat echo: EF 55-60% #Severe BECKA/MDD #Hx of Suicidal Ideation -patient denies suicidial/homicidal ideation at this time -appears anxious but not decompensated Plan: -low threshold for psychiatric consult and sitter -continue home medications 08/09 mood stable denies suicidal ideation #Hypomagnesemia -replete and monitor #Rheumatoid Arthritis -f/u outpatient Admission and Anticipated Discharge Date Admission Date: August 06, 2024 Subjective Pt seen in follow up Recently discharged from [facility] on 08/05/2024, there he was admitted for methadone overdose, intubated Now at [place] with pneumonia, cavitary lesion Currently sitting up in bedside chair, in NAD states he continues to feel improved overall still having some productive cough, but improved Says he can't sleep lying down, only in chair he is comfortable no abdominal pain, no fevers, chills Review of Systems Review of Systems: All systems reviewed & are unremarkable except as noted in Subjective Physical Exam Physical Exam: Constitutional: WD/WN young M in NAD HEENT: EOMI, PERRLA Respiratory system: Decreased air entry bilaterally, no wheeze, + bibasilar crackles CVS: rrr, no murmurs Abdomen: Soft, nontender, nondistended, + bowel sounds Extremities: + LE edema, moves extremities Neuro: Awake alert oriented x3, speech fluent, answers appropriately, no facial asymmetry, moves extremities Results & Data Results & Data Vital Signs (Past 12 Hours) Vital Signs Temp Pulse Pulse Resp BP BP Pulse Ox 08/10/24 10:50 36.7 C 70 18 128/80 96 08/10/24 07:41 36.8 C 83 18 120/77 94 08/10/24 07:37 08/10/24 07:12 64 08/10/24 03:47 36.7 C 100 H 20 124/82 92 08/09/24 23:34 36.9 C 92 H 20 142/92 H 94 O2 Del Method 08/10/24 10:50 Room Air 08/10/24 07:41 Room Air 08/10/24 07:37 Room Air 08/10/24 07:12 08/10/24 03:47 Room Air 08/09/24 23:34 Room Air Laboratory Results 08/08/24 Range/Units 10:05 Homocysteine 8.5 (< or = 13.5) umol/L Medications Administered Current Inpatient Medications Acetaminophen (Acetaminophen 325 Mg Tab) 650 mg PO QID PRN PRN Reason: pain/fever Stop: 09/06/24 04:40 Albuterol (Albut/Ipratrop 3mg/0.5mg Neb 3 Ml Vial) 3 ml NEB Q6R PRN; Protocol PRN Reason: Shortness Of Breath Or Wheezing Stop: 09/05/24 18:28 Apixaban (Apixaban 5 Mg Tablet) 10 mg PO BID JF Stop: 08/16/24 09:01 Last Admin: 08/10/24 10:26 Dose: 10 mg Apixaban (Apixaban 5 Mg Tablet) 5 mg PO BID [facility] Stop: 09/15/24 20:59 Benzonatate (Benzonatate 100 Mg Capsule) 100 mg PO TID PRN PRN Reason: Cough Stop: 09/05/24 15:46 Last Admin: 08/09/24 21:15 Dose: 100 mg Calcium Carbonate (Calcium Carbonate 500 Mg Chewable Tab) 500 mg PO TID PRN PRN Reason: Gastric distress Stop: 09/05/24 15:49 Diclofenac Sodium (Diclofenac Sod 1% Gel 100 Gm Tube) 2 gm EXT Q12 [facility]; Protocol Stop: 09/05/24 20:59 Last Admin: 08/10/24 10:29 Dose: Not Given Escitalopram Oxalate (Escitalopram Oxalate 10 Mg Tab) 5 mg PO DAILY [facility] Stop: 09/06/24 08:59 Last Admin: 08/10/24 10:27 Dose: 5 mg Ferrous Sulfate (Ferrous Sulfate 325 Mg Tab) 325 mg PO BIDM [facility] Stop: 09/07/24 07:59 Last Admin: 08/10/24 10:27 Dose: 325 mg Guaifenesin/Dextromethorphan (Guaifenesin/Dextrom Syrup 100mg/10mg 5ml Udc) 5 ml PO Q6H PRN PRN Reason: Cough Stop: 09/05/24 18:01 Last Admin: 08/10/24 04:26 Dose: 5 ml Hydromorphone HCl (Hydromorphone Inj 0.5 Mg/0.5 Ml Syr) 0.5 mg IV Q4 PRN PRN Reason: Breakthrough Pain Stop: 08/20/24 18:01 Last Admin: 08/09/24 00:09 Dose: 0.5 mg Hydroxyzine HCl (Hydroxyzine Hcl 10 Mg Tab) 10 mg PO QID PRN PRN Reason: Anxiety Stop: 09/06/24 04:59 Ampicillin Sodium/Sulbactam Sodium (Unasyn) 3,000 mg in 100 mls @ 200 mls/hr IV Q6H [facility]; Protocol Stop: 08/13/24 21:59 Last Infusion: 08/10/24 11:11 Dose: Infused Lactobacillus Acidophilus (Advanced Probiotic 625 Mg Capsule) 1,250 mg PO DAILY [facility] Stop: 09/06/24 14:59 Last Admin: 08/10/24 10:26 Dose: 1,250 mg Loperamide HCl (Loperamide Hcl 2 Mg Cap) 2 mg PO UD PRN PRN Reason: diarrhea Stop: 09/06/24 15:56 Last Admin: 08/07/24 18:46 Dose: 2 mg Melatonin (Melatonin 3 Mg Tab) 3 mg PO HS PRN PRN Reason: Sleep Stop: 09/05/24 15:46 Menthol (Cough Drop (Sugar Free) Rafael 24 Rafael/1 Box) 1 rafael BUCCAL Q2H PRN PRN Reason: Sore Throat Stop: 09/08/24 00:38 Last Admin: 08/09/24 02:00 Dose: 1 rafael Metoprolol Tartrate (Metoprolol Tartrate 25 Mg Tab) 12.5 mg PO Q12H JF Stop: 09/05/24 15:46 Last Admin: 08/10/24 03:48 Dose: 12.5 mg Ondansetron HCl (Ondansetron Inj 2 Mg/Ml 2 Ml Vial) 4 mg IV Q6H PRN PRN Reason: Nausea Stop: 09/05/24 15:46 Last Admin: 08/07/24 10:13 Dose: 4 mg Oxycodone HCl (Oxycodone Hcl Ir 5 Mg Tab (Immediate Release)) 7.5 mg PO Q4 PRN PRN Reason: Severe Pain (Scale 7, 8, 9,10) Stop: 08/20/24 15:46 Last Admin: 08/10/24 10:25 Dose: 7.5 mg Pantoprazole Sodium (Pantoprazole 40 Mg Tab) 40 mg PO BID JF Stop: 09/05/24 20:59 Last Admin: 08/10/24 10:28 Dose: 40 mg Polyethylene Glycol (Polyethylene (Miralax) 17 Gm Pack) 17 gm PO DAILY PRN PRN Reason: Constipation Stop: 09/05/24 15:46 Sennosides (Senna 8.6 Mg Tab) 8.6 mg PO DAILY PRN PRN Reason: Constipation Stop: 09/05/24 15:46 Trazodone HCl (Trazodone Hcl 50 Mg Tab) 50 mg PO HS JF Stop: 09/05/24 20:59 Last Admin: 08/09/24 21:02 Dose: 50 mg
--- NOTE | 2024-08-10 12:38 | Pulmonology Progress Note ---
Date of Service August 10, 2024 Assessment & Plan (1) Abnormal chest CT: (2) Cavitary lesion of lung: (3) HAP (hospital-acquired pneumonia): (4) Acute respiratory failure with hypoxia: (5) Pleuritic chest pain: (6) Cigar smoker: (7) Pulmonary emboli: Acute cor pulmonale presence: unspecified Chronicity: acute P ulmonary embolism type: unspecified Qualified Code(s): I26.99 - Other pulmonary embolism without acute cor pulmonale Plan Impression: 34-year-old male with history of substance abuse who was just discharged from [facility] (no records available) to an inpatient psych unit. He was brought to the emergency room with fevers, chills, shortness of breath. CT scan shows cavitary lesions concerning for septic emboli versus multifocal necrotic pneumonia. Social history: Smokes cigar once a week, no cigarette smoking, works in the half-[employer] Had cats and dog at home. No birds or poultry nearby CTA chest 08/06/2024 personally reviewed: Patchy groundglass opacities appreciated bilaterally 4.4 cm cavitary lesion in the right upper lobe, 6.7 cm cavitary lesion in the left lower lobe abutting the pleura Multiple other small cavity lesions appreciated on the periphery on the right side Significant precarinal lymphadenopathy 2D echo 08/07/2024: EF 55-50%, RV size and function normal, no overt vegetations. --Multiple cavitary lesions with mediastinal lymphadenopathy Respiratory bio fire negative for everything on 08/06/2024 Nasal MRSA negative, procalcitonin 0.18 I was able to personally look at the CAT scan of the chest which was done 07/21/2024 at [place], patient had dense consolidative process of the left lower lobe as well as patchy groundglass opacities bilaterally likely representing multifocal pneumonia BAL done at [facility] grew haemophilus influenza, The cavitary lesions is most likely able effusion off that pneumonia Patient does work, as per the patient he gets checked with TB skin testing on an yearly basis and the always been negative Goal QuantiFERON negative on 08/06/2024, given the patient has low probability of TB okay to discontinue isolation Patient seem to have cavitary lesion on the chest x-ray done 07/28/2024 with patchy opacities bilaterally Sputum culture growing Streptococcus constellatus HIV negative --Acute respiratory failure with hypoxia --> resolved Multifactorial Pulmonary emboli as well as patchy opacities and cavitary lesion Continue with O2 supplementation to keep oxygen saturation between 90-92% -- Acute pulmonary emboli sPESI 0 Continue with heparin drip --Cigar smoker --History of rheumatoid arthritis Not on any medications at home Plan: Goal QuantiFERON negative on 08/06/2024, okay to take the patient off isolation. Would recommend infectious disease control as well as infectious disease to weigh in the expertise Would recommend to continue with antibiotics for at least 4-6 weeks as per ID recommendations Follow-up blood cultures Case was discussed with primary team No further recommendation from pulmonary perspective, will sign off Please call directly with any questions Please note the above document was generated using voice recognition software. It may contain grammatical, syntax or spelling errors.Any formal questions or concerns about the content, text or information contained within the body of this dictation should be directly addressed to the provider for clarification. Admission and Anticipated Discharge Date Admission Date: August 06, 2024 Subjective Patient seen and examined at bedside. No acute distress, no dressings overnight States that he is feeling much better compared to before Was saturating 97% on room air with heart rate in the mid 80s Denied any pleuritic chest pain Fair appetite, no nausea or vomiting Denied any headache Review of Systems 2 Review of Systems: All systems reviewed & are unremarkable except as noted in Subjective Physical Exam 2 Physical Exam: Constitutional: No acute distress HEENT: EOMI, PERRLA Respiratory system: Decreased air entry bilaterally, no wheeze, no rhonchi, positive crackles bilateral lower lobe CVS: S1-S2 positive, no murmurs or gallops, tachycardia Abdomen: Soft, nontender, nondistended, positive bowel sounds x4 Extremities: +2 pulses bilaterally radialis/ dorsalis pedis, no cyanosis, +1 pitting edema bilateral lower extremity Neuro: Awake alert oriented x3 Psych: Normal mood and affect G/U: No Thapa Skin: no rashes, warm and dry Lymphatic: no cervical or axillary lymphadenopathy Results & Data Results & Data Vital Signs (Past 12 Hours) Vital Signs Temp Pulse Pulse Resp BP Pulse Ox O2 Del Method 08/10/24 10:50 36.7 C 70 18 128/80 96 Room Air 08/10/24 07:41 36.8 C 83 18 120/77 94 Room Air 08/10/24 07:37 Room Air 08/10/24 07:12 64 08/10/24 03:47 36.7 C 100 H 20 124/82 92 Room Air Laboratory Results 08/09/24 06:21 08/09/24 06:21 PG Care Time/CCT Total # of Minutes Spent Total Time Spent with Patient: Total time spent is greater than 50% in coordination of care (as documented) at patient's floor/unit and/or counseling patient: Coding Level of Care Code 55467 SUB INP/OBS CARE 2/35MIN Diagnoses Abnormal chest CT R93.89 Cavitary lesion of lung J98.4 HAP (hospital-acquired pneumonia) J18.9; Y95 Acute respiratory failure with hypoxia J96.01 Pleuritic chest pain R07.81 Cigar smoker F17.290 Pulmonary emboli I26.99 Acute cor pulmonale presence: unspecified Chronicity: acute Pulmonary embolism type: unspecified
[2024-08-10] MEDS: AMOXICILLIN/CLAVULANATE 875 MG TAB PO SCH (21:37)
[2024-08-11 06:35] LABS: Hematocrit (blood only) 28.2 % (42.0-52.0); Hemoglobin 8.4 g/dl (14.0-18.0); Mean Corpuscular Hemoglobin 22.3 pg (25.0-34.0); Mean Corpuscular Volume 74.8 fL (80.0-100.0); Platelet Count 576 K/uL (130-400); RDW Standard Deviation 54.0 fL (36.4-46.3); Red Blood Count 3.77 M/uL (4.70-6.10); White Blood Count 8.92 K/ul (4.8-10.8)
[2024-08-11 07:30] LABS: Alanine Aminotransferase 87.0 U/L (7-52); Albumin Globulin Ratio 0.8 (0.9-2); Alkaline Phosphatase 98.0 U/L (34-104); Anion Gap 9.0 (3-11); Bilirubin,Total 0.3 mg/dl (0.2-1.0); Blood Urea Nitrogen 3.0 mg/dl (6-23); Calcium 8.9 mg/dl (8.6-10.3); Carbon Dioxide 25.0 mmol/L (21-32); Chloride 105.0 mmol/L (98-107); Creatinine Clr Calc Pharmacy 126.9 ml/min; Globulin 3.7 gm/dl (2.5-4.0); Glucose 92.0 mg/dl (70-99(Fasting)); Magnesium 1.5 mg/dl (1.7-2.4); Potassium 4.4 mmol/L (3.5-5.1); Sodium 139.0 mmol/L (136-145); Total Protein 6.7 gm/dl (6.0-8.3)
--- NOTE | 2024-08-11 09:38 | Pulmonology Progress Note ---
Date of Service August 11, 2024 Assessment & Plan (1) Abnormal chest CT: (2) Cavitary lesion of lung: (3) HAP (hospital-acquired pneumonia): (4) Acute respiratory failure with hypoxia: (5) Pleuritic chest pain: (6) Cigar smoker: (7) Pulmonary emboli: Acute cor pulmonale presence: unspecified Chronicity: acute P ulmonary embolism type: unspecified Qualified Code(s): I26.99 - Other pulmonary embolism without acute cor pulmonale Plan Impression: 34-year-old male with history of substance abuse who was just discharged from [facility] (no records available) to an inpatient psych unit. He was brought to the emergency room with fevers, chills, shortness of breath. CT scan shows cavitary lesions concerning for septic emboli versus multifocal necrotic pneumonia. Social history: Smokes cigar once a week, no cigarette smoking, works in the [employer] Had cats and dog at home. No birds or poultry nearby CTA chest 08/06/2024 personally reviewed: Patchy groundglass opacities appreciated bilaterally 4.4 cm cavitary lesion in the right upper lobe, 6.7 cm cavitary lesion in the left lower lobe abutting the pleura Multiple other small cavity lesions appreciated on the periphery on the right side Significant precarinal lymphadenopathy 2D echo 08/07/2024: EF 55-50%, RV size and function normal, no overt vegetations. --Multiple cavitary lesions with mediastinal lymphadenopathy Respiratory bio fire negative for everything on 08/06/2024 Nasal MRSA negative, procalcitonin 0.18 I was able to personally look at the CAT scan of the chest which was done 07/21/2024 at [place], patient had dense consolidative process of the left lower lobe as well as patchy groundglass opacities bilaterally likely representing multifocal pneumonia BAL done at [facility] grew haemophilus influenza, The cavitary lesions is most likely able effusion off that pneumonia Patient does work, as per the patient he gets checked with TB skin testing on an yearly basis and the always been negative Goal QuantiFERON negative on 08/06/2024, given the patient has low probability of TB okay to discontinue isolation Patient seem to have cavitary lesion on the chest x-ray done 07/28/2024 with patchy opacities bilaterally Sputum culture growing Streptococcus constellatus HIV negative --Acute respiratory failure with hypoxia --> resolved Multifactorial Pulmonary emboli as well as patchy opacities and cavitary lesion Continue with O2 supplementation to keep oxygen saturation between 90-92% -- Acute pulmonary emboli sPESI 0 Continue with heparin drip --Cigar smoker --History of rheumatoid arthritis Not on any medications at home Plan: Goal QuantiFERON negative on 08/06/2024, okay to take the patient off isolation. Would recommend infectious disease control as well as infectious disease to weigh in the expertise Would recommend to continue with antibiotics for at least 4-6 weeks as per ID recommendations Blood culture negative to date Case was discussed with primary team No further recommendation from pulmonary perspective, will sign off Please call directly with any questions Please note the above document was generated using voice recognition software. It may contain grammatical, syntax or spelling errors.Any formal questions or concerns about the content, text or information contained within the body of this dictation should be directly addressed to the provider for clarification. Admission and Anticipated Discharge Date Admission Date: August 06, 2024 Subjective Patient seen at bedside. No acute distress, no adverse events overnight He was walking around in the room at the time of examination Saturation was 96-97% room air, he was little tachycardic likely because of moving around in the room Overall he stated is feeling better Still coughing especially at night Denies any nausea or vomiting Breathing is improving Fair appetite Review of Systems 2 Review of Systems: All systems reviewed & are unremarkable except as noted in Subjective Physical Exam 2 Physical Exam: Constitutional: No acute distress HEENT: EOMI, PERRLA Respiratory system: Decreased air entry bilaterally, no wheeze, no rhonchi, positive crackles bilateral lower lobe CVS: S1-S2 positive, no murmurs or gallops, tachycardia Abdomen: Soft, nontender, nondistended, positive bowel sounds x4 Extremities: +2 pulses bilaterally radialis/ dorsalis pedis, no cyanosis, no edema Neuro: Awake alert oriented x3 Psych: Normal mood and affect G/U: No Thapa Skin: no rashes, warm and dry Lymphatic: no cervical or axillary lymphadenopathy Results & Data Results & Data Vital Signs (Past 12 Hours) Vital Signs Temp Pulse Pulse Resp BP Pulse Ox O2 Del Method 08/11/24 07:20 36.8 C 93 H 18 133/86 94 Room Air 08/11/24 04:33 77 18 99/65 L 94 Room Air 08/11/24 03:02 37.0 C 77 18 119/79 96 Room Air 08/10/24 22:57 37.2 C 77 18 147/95 H 97 Room Air 08/10/24 21:57 76 08/10/24 21:40 Room Air Laboratory Results 08/11/24 05:53 08/11/24 05:53 PG Care Time/CCT Total # of Minutes Spent Total Time Spent with Patient: Total time spent is greater than 50% in coordination of care (as documented) at patient's floor/unit and/or counseling patient: Coding Level of Care Code 98521 SUB INP/OBS CARE 2/35MIN Diagnoses Abnormal chest CT R93.89 Cavitary lesion of lung J98.4 HAP (hospital-acquired pneumonia) J18.9; Y95 Acute respiratory failure with hypoxia J96.01 Pleuritic chest pain R07.81 Cigar smoker F17.290 Pulmonary emboli I26.99 Acute cor pulmonale presence: unspecified Chronicity: acute Pulmonary embolism type: unspecified
[2024-08-11] MEDS: MAGNESIUM SULFATE / D5W 1 GM/100 ML BAG IV ONE (10:05)
--- NOTE | 2024-08-11 17:04 | Hospitalist Progress Note ---
Date of Service August 11, 2024 Assessment & Plan (1) Severe sepsis: (2) Hypomagnesemia: (3) Depression: (4) BECKA (generalized anxiety disorder): (5) Empyema: (6) Cavitary lesion of lung: (7) HAP (hospital-acquired pneumonia): Plan Per previous provider w/ addendum 34 yo male with pmhx of severe BECKA/depression c/b recurrent suicidal ideations, rheumatoid arthritis, hx of external hydrocephalus, hx of alcohol use disorder (in early remission, last early July) who presents for fevers, SOB and chills 2/2 severe sepsis with septic emboli/lung abscesses. #Severe Sepsis #HAP #Lung Abscess w/ Cavitary Lesions #R/o Empyema #R/o Septic Emboli #R/o Infective Endocarditis -patient has fever, tachycardia, tachypnea, and leukocytosis with elevated LA suggestive of severe sepsis -lung imaging concerning for significant for numerous cavitary lesions w/ concern for lung abscess and potential septic emboli -unable to do Hernandez criteria at his time due cultures just drawn, does have 2 minor criteria with splinter hemorrhages and fever -likely 2/2 aspiration pneumonia from recent intubation now worsening, has splinter hemorrhages on exam concerning for potential infectious endocarditis Plan: -pulmonary consult, appreciate recs -broaden abx to vanc/zosyn, get additional blood culture for 3 cultures total, MRSA swab ordered, sputum culture ordered, IS and flutter valve ordered -continue fluid resuscitation -CT abdomen/pelvis and TTE ordered for septic emboli workup -check TB, aspergillus, coccidioides given concern for cavitary lung disease, lower concern at this time -will need CT chest in 6 months to livestock breeder resolution -ID consult in AM, 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 -trend troponin, lactic acid 08/08 clinically improving fever resolved since yesterday leukocytosis resolved blood culture:negative x 48 hours sputum culture: Streptococcus echo: EF 55-60%, no overt vegetations noted given Vanco + Zosyn appreciate Pulm recommendations- does not recommend drainage of L lower lobe abscess due to small size appreciate ID recommendations 08/09- "Based on the cultures isolated from deep tracheal aspirate and BAL at [place] which grew Haemophilus influenzae and the sputum culture isolated at [facility] which grew Streptococcus constellatus, I would recommend stopping all current antibiotics and starting on IV Unasyn. Continue on IV Unasyn today and tomorrow and if he remained afebrile by the morning of 08/10/2024, consider stepping down to oral Augmentin 875/125 TID. He will require at least 4 weeks of oral Augmentin with a repeat CT scan of the chest in 3 weeks from discharge (CT will be ordered by me to be done in [place]). I (Dr. Madison) will also arrange for him to be seen in my clinic within the next 6 weeks." records and imaging studies from [facility] obtained #Right Segmental/Subsegmental PE -PESI score of 106 points making patient high risk PE -segmental and subsegmental PEs in right lung -not requiring oxygen Plan: - BNP: normal - echo: no RV strain -- hemodynamically stable on room air continued IV Heparin -> pt was started on Eliquis, heparin stopped monitor H&H partial hypercoag work up sent- mother has history of PE- will need full work up by Hematology service as outpatient #Anemia, Iron deficiency -- Hg dropped from 8 to 6.4 no overt signs of active bleeding -- transfused 1 unit pRBC Hg improved to 8.2 anemia panel ordered continue to monitor closely 08/08 Hg 7.4 no signs of overt bleed Iron < 10 will order IV Fe Oral Fe also started 08/09 Hgb 7.5 08/11 Hgb 8.4 will need further eval for iron deficiency anemia as outpatient #Subacute HFmid EF (EF 50%) -likely in setting of alcohol use and methadone use (although patient states one time event) Plan: -f/u echo results -current Hgb A1c 5.3%, lipids - LDL 55, TSH 0.55 (wnl) -continue metoprolol, hold lisinopril for now given severe sepsis -- repeat echo: EF 55-60% #Severe BECKA/MDD #Hx of Suicidal Ideation -patient denies suicidal/homicidal ideation at this time -appears anxious but not decompensated Plan: -low threshold for psychiatric consult and sitter -continue home medications 08/09 mood stable denies suicidal ideation #Hypomagnesemia -replete and monitor #Rheumatoid Arthritis -f/u outpatient Admission and Anticipated Discharge Date Admission Date: August 06, 2024 Subjective Pt seen in follow up Recently discharged from [facility] on 08/05/2024, there he was admitted for methadone overdose, intubated Now at [facility] with pneumonia, cavitary lesion Currently sitting up in bedside chair, in NAD states he continues to feel improved overall still having some cough, but improved no abdominal pain, no fevers, chills Discussed w/ CM regarding DC plan - waiting to hear back from Krys Pt's parents updated over the phone Review of Systems Review of Systems: All systems reviewed & are unremarkable except as noted in Subjective Physical Exam Physical Exam: Constitutional: WD/WN young M in NAD HEENT: EOMI, PERRLA Respiratory system: Decreased air entry bilaterally, no wheeze, + mild bibasilar crackles CVS: rrr, no murmurs Abdomen: Soft, nontender, nondistended, + bowel sounds Extremities: + LE edema, moves extremities Neuro: Awake alert oriented x3, speech fluent, answers appropriately, no facial asymmetry, moves extremities Results & Data Results & Data Vital Signs (Past 12 Hours) Vital Signs Temp Pulse Resp BP Pulse Ox O2 Del Method 08/11/24 15:52 36.8 C 81 18 133/91 98 Room Air 08/11/24 13:09 Room Air 08/11/24 10:57 36.9 C 75 18 133/86 97 Room Air 08/11/24 07:20 36.8 C 93 H 18 133/86 94 Room Air Laboratory Results 08/11/24 Range/Units 05:53 WBC 8.92 (4.8-10.8) K/ul RBC 3.77 L (4.70-6.10) M/uL Hgb 8.4 L (14.0-18.0) g/dl Hct 28.2 L (42.0-52.0) % MCV 74.8 L (80.0-100.0) fL MCH 22.3 L (25.0-34.0) pg MCHC 29.8 L (32.0-36.0) g/dL RDW Std Deviation 54.0 H (36.4-46.3) fL RDW Coeff of Betsy 20.8 H (11.5-14.5) % Plt Count 576 H (130-400) K/uL MPV 9.0 L (9.4-12.4) fL Sodium 139 (136-145) mmol/L Potassium 4.4 (3.5-5.1) mmol/L Chloride 105 (98-107) mmol/L Carbon Dioxide 25 (21-32) mmol/L Anion Gap 9 (3-11) BUN 3 L (6-23) mg/dl Creatinine 0.70 (0.6-1.4) mg/dl Est Cr Clr Drug Dosing 126.9 ml/min eGFR 122.47 BUN/Creatinine Ratio 4.3 L (10-20) Glucose 92 (70-99(Fasting)) mg/dl Calcium 8.9 (8.6-10.3) mg/dl Phosphorus 4.2 (2.5-4.9) mg/dl Magnesium 1.5 L (1.7-2.4) mg/dl Total Bilirubin 0.3 (0.2-1.0) mg/dl AST 45 H (13-39) U/L ALT 87 H (7-52) U/L Alkaline Phosphatase 98 (34-104) U/L Total Protein 6.7 (6.0-8.3) gm/dl Albumin 3.0 L (3.4-5.0) gm/dl Globulin 3.7 (2.5-4.0) gm/dl Albumin/Globulin Ratio 0.8 L (0.9-2) Medications Administered Current Inpatient Medications Acetaminophen (Acetaminophen 325 Mg Tab) 650 mg PO QID PRN PRN Reason: pain/fever Stop: 09/06/24 04:40 Albuterol (Albut/Ipratrop 3mg/0.5mg Neb 3 Ml Vial) 3 ml NEB Q6R PRN; Protocol PRN Reason: Shortness Of Breath Or Wheezing Stop: 09/05/24 18:28 Amoxicillin/Clavulanate Potassium (Amoxicillin/Clavulanate 875 Mg Tab) 1 tab PO TID [facility] Stop: 09/07/24 21:59 Last Admin: 08/11/24 14:45 Dose: 1 tab Apixaban (Apixaban 5 Mg Tablet) 10 mg PO BID [facility] Stop: 08/16/24 09:01 Last Admin: 08/11/24 10:10 Dose: 10 mg Apixaban (Apixaban 5 Mg Tablet) 5 mg PO BID [facility] Stop: 09/15/24 20:59 Benzonatate (Benzonatate 100 Mg Capsule) 100 mg PO TID PRN PRN Reason: Cough Stop: 09/05/24 15:46 Last Admin: 08/10/24 20:27 Dose: 100 mg Calcium Carbonate (Calcium Carbonate 500 Mg Chewable Tab) 500 mg PO TID PRN PRN Reason: Gastric distress Stop: 09/05/24 15:49 Diclofenac Sodium (Diclofenac Sod 1% Gel 100 Gm Tube) 2 gm EXT Q12 JF; Protocol Stop: 09/05/24 20:59 Last Admin: 08/11/24 10:12 Dose: Not Given Escitalopram Oxalate (Escitalopram Oxalate 10 Mg Tab) 5 mg PO DAILY [facility] Stop: 09/06/24 08:59 Last Admin: 08/11/24 10:11 Dose: 5 mg Ferrous Sulfate (Ferrous Sulfate 325 Mg Tab) 325 mg PO BIDM [facility] Stop: 09/07/24 07:59 Last Admin: 08/11/24 10:09 Dose: 325 mg Guaifenesin/Dextromethorphan (Guaifenesin/Dextrom Syrup 100mg/10mg 5ml Udc) 5 ml PO Q6H PRN PRN Reason: Cough Stop: 09/05/24 18:01 Last Admin: 08/10/24 20:27 Dose: 5 ml Hydromorphone HCl (Hydromorphone Inj 0.5 Mg/0.5 Ml Syr) 0.5 mg IV Q4 PRN PRN Reason: Breakthrough Pain Stop: 08/20/24 18:01 Last Admin: 08/09/24 00:09 Dose: 0.5 mg Hydroxyzine HCl (Hydroxyzine Hcl 10 Mg Tab) 10 mg PO QID PRN PRN Reason: Anxiety Stop: 09/06/24 04:59 Lactobacillus Acidophilus (Advanced Probiotic 625 Mg Capsule) 1,250 mg PO DAILY [facility] Stop: 09/06/24 14:59 Last Admin: 08/11/24 10:12 Dose: 1,250 mg Loperamide HCl (Loperamide Hcl 2 Mg Cap) 2 mg PO UD PRN PRN Reason: diarrhea Stop: 09/06/24 15:56 Last Admin: 08/11/24 10:27 Dose: 2 mg Melatonin (Melatonin 3 Mg Tab) 3 mg PO HS PRN PRN Reason: Sleep Stop: 09/05/24 15:46 Menthol (Cough Drop (Sugar Free) Rafael 24 Rafael/1 Box) 1 rafael BUCCAL Q2H PRN PRN Reason: Sore Throat Stop: 09/08/24 00:38 Last Admin: 08/09/24 02:00 Dose: 1 rafael Metoprolol Tartrate (Metoprolol Tartrate 25 Mg Tab) 12.5 mg PO Q12H JF Stop: 09/05/24 15:46 Last Admin: 08/11/24 14:45 Dose: 12.5 mg Ondansetron HCl (Ondansetron Inj 2 Mg/Ml 2 Ml Vial) 4 mg IV Q6H PRN PRN Reason: Nausea Stop: 09/05/24 15:46 Last Admin: 08/07/24 10:13 Dose: 4 mg Oxycodone HCl (Oxycodone Hcl Ir 5 Mg Tab (Immediate Release)) 7.5 mg PO Q4 PRN PRN Reason: Severe Pain (Scale 7, 8, 9,10) Stop: 08/20/24 15:46 Last Admin: 08/11/24 15:48 Dose: 7.5 mg Pantoprazole Sodium (Pantoprazole 40 Mg Tab) 40 mg PO BID [facility] Stop: 09/05/24 20:59 Last Admin: 08/11/24 10:12 Dose: 40 mg Polyethylene Glycol (Polyethylene (Miralax) 17 Gm Pack) 17 gm PO DAILY PRN PRN Reason: Constipation Stop: 09/05/24 15:46 Sennosides (Senna 8.6 Mg Tab) 8.6 mg PO DAILY PRN PRN Reason: Constipation Stop: 09/05/24 15:46 Trazodone HCl (Trazodone Hcl 50 Mg Tab) 50 mg PO HS [facility] Stop: 09/05/24 20:59 Last Admin: 08/10/24 20:27 Dose: 50 mg
[2024-08-12 07:15] LABS: Anion Gap 7.0 (3-11); Blood Urea Nitrogen 5.0 mg/dl (6-23); Calcium 9.0 mg/dl (8.6-10.3); Carbon Dioxide 27.0 mmol/L (21-32); Chloride 104.0 mmol/L (98-107); Creatinine Clr Calc Pharmacy 111.0 ml/min; Glucose 96.0 mg/dl (70-99(Fasting)); Magnesium 1.6 mg/dl (1.7-2.4); Potassium 4.2 mmol/L (3.5-5.1); Sodium 138.0 mmol/L (136-145)
[2024-08-12] MEDS: MAGNESIUM SULFATE / D5W 1 GM/100 ML BAG IV ONE (09:58)
--- NOTE | 2024-08-12 10:27 | Pulmonology Progress Note ---
Date of Service August 12, 2024 Assessment & Plan (1) Abnormal chest CT: (2) Cavitary lesion of lung: (3) HAP (hospital-acquired pneumonia): (4) Acute respiratory failure with hypoxia: (5) Pleuritic chest pain: (6) Cigar smoker: (7) Pulmonary emboli: Acute cor pulmonale presence: unspecified Chronicity: acute P ulmonary embolism type: unspecified Qualified Code(s): I26.99 - Other pulmonary embolism without acute cor pulmonale Plan Impression: 34-year-old male with history of substance abuse who was just discharged from [facility] (no records available) to an inpatient psych unit. He was brought to the emergency room with fevers, chills, shortness of breath. CT scan shows cavitary lesions concerning for septic emboli versus multifocal necrotic pneumonia. Social history: Smokes cigar once a week, no cigarette smoking, works in the [employer] Had cats and dog at home. No birds or poultry nearby CTA chest 08/06/2024 personally reviewed: Patchy groundglass opacities appreciated bilaterally 4.4 cm cavitary lesion in the right upper lobe, 6.7 cm cavitary lesion in the left lower lobe abutting the pleura Multiple other small cavity lesions appreciated on the periphery on the right side Significant precarinal lymphadenopathy 2D echo 08/07/2024: EF 55-50%, RV size and function normal, no overt vegetations. --Multiple cavitary lesions with mediastinal lymphadenopathy Respiratory bio fire negative for everything on 08/06/2024 Nasal MRSA negative, procalcitonin 0.18 I was able to personally look at the CAT scan of the chest which was done 07/21/2024 at [place], patient had dense consolidative process of the left lower lobe as well as patchy groundglass opacities bilaterally likely representing multifocal pneumonia BAL done at [facility] grew haemophilus influenza, The cavitary lesions is most likely able effusion off that pneumonia Patient does work, as per the patient he gets checked with TB skin testing on an yearly basis and the always been negative Goal QuantiFERON negative on 08/06/2024, given the patient has low probability of TB okay to discontinue isolation Patient seem to have cavitary lesion on the chest x-ray done 07/28/2024 with patchy opacities bilaterally Sputum culture growing Streptococcus constellatus HIV negative --Acute respiratory failure with hypoxia --> resolved Multifactorial Pulmonary emboli as well as patchy opacities and cavitary lesion Continue with O2 supplementation to keep oxygen saturation between 90-92% -- Acute pulmonary emboli sPESI 0 Continue with heparin drip --Cigar smoker --History of rheumatoid arthritis Not on any medications at home Plan: Goal QuantiFERON negative on 08/06/2024, okay to take the patient off isolation. Would recommend infectious disease control as well as infectious disease to weigh in the expertise Complete the course of antibiotics for at least 4-6 weeks as per ID recommendations Blood culture negative to date Case was discussed with primary team No further recommendation from pulmonary perspective, will sign off Please call directly with any questions Please note the above document was generated using voice recognition software. It may contain grammatical, syntax or spelling errors.Any formal questions or concerns about the content, text or information contained within the body of this dictation should be directly addressed to the provider for clarification. Admission and Anticipated Discharge Date Admission Date: August 06, 2024 Subjective Patient seen and examined at bedside. No acute distress, no events noted overnight He was sleeping on the recliner when I entered the room He stated that he is feeling better Still complaining of cough especially at night but it has decreased in intensity and frequency Denies any diarrhea No nausea or vomiting Was saturating well on room air Review of Systems 2 Review of Systems: All systems reviewed & are unremarkable except as noted in Subjective Physical Exam 2 Physical Exam: Constitutional: No acute distress HEENT: EOMI, PERRLA Respiratory system: Decreased air entry bilaterally, no wheeze, no rhonchi, positive crackles bilateral lower lobe CVS: S1-S2 positive, no murmurs or gallops, tachycardia Abdomen: Soft, nontender, nondistended, positive bowel sounds x4 Extremities: +2 pulses bilaterally radialis/ dorsalis pedis, no cyanosis, no edema Neuro: Awake alert oriented x3 Psych: Normal mood and affect G/U: No Thapa Skin: no rashes, warm and dry Lymphatic: no cervical or axillary lymphadenopathy Results & Data Results & Data Vital Signs (Past 12 Hours) Vital Signs Temp Pulse Pulse Resp BP Pulse Ox O2 Del Method 08/12/24 08:00 Room Air 08/12/24 07:46 37.1 C 81 17 125/78 97 Room Air 08/12/24 02:48 37.0 C 73 18 114/74 94 Room Air 08/11/24 23:19 79 08/11/24 22:50 37.0 C 79 18 146/94 H 98 Room Air Laboratory Results 08/11/24 05:53 08/12/24 06:22 PG Care Time/CCT Total # of Minutes Spent Total Time Spent with Patient: Total time spent is greater than 50% in coordination of care (as documented) at patient's floor/unit and/or counseling patient: Coding Level of Care Code 50442 SUB INP/OBS CARE 2/35MIN Diagnoses Abnormal chest CT R93.89 Cavitary lesion of lung J98.4 HAP (hospital-acquired pneumonia) J18.9; Y95 Acute respiratory failure with hypoxia J96.01 Pleuritic chest pain R07.81 Cigar smoker F17.290 Pulmonary emboli I26.99 Acute cor pulmonale presence: unspecified Chronicity: acute Pulmonary embolism type: unspecified
--- NOTE | 2024-08-12 15:42 | Hospitalist Progress Note ---
Date of Service August 12, 2024 Assessment & Plan (1) Severe sepsis: (2) Hypomagnesemia: (3) Depression: (4) BECKA (generalized anxiety disorder): (5) Empyema: (6) Cavitary lesion of lung: (7) HAP (hospital-acquired pneumonia): Plan Per previous provider w/ addendum 34 yo male with pmhx of severe BECKA/depression c/b recurrent suicidal ideations, rheumatoid arthritis, hx of external hydrocephalus, hx of alcohol use disorder (in early remission, last early July) who presents for fevers, SOB and chills 2/2 severe sepsis with septic emboli/lung abscesses. #Severe Sepsis #HAP #Lung Abscess w/ Cavitary Lesions #R/o Empyema #R/o Septic Emboli #R/o Infective Endocarditis -patient has fever, tachycardia, tachypnea, and leukocytosis with elevated LA suggestive of severe sepsis -lung imaging concerning for significant for numerous cavitary lesions w/ concern for lung abscess and potential septic emboli -unable to do Hernandez criteria at his time due cultures just drawn, does have 2 minor criteria with splinter hemorrhages and fever -likely 2/2 aspiration pneumonia from recent intubation now worsening, has splinter hemorrhages on exam concerning for potential infectious endocarditis Plan: -pulmonary consult, appreciate recs -broaden abx to vanc/zosyn, get additional blood culture for 3 cultures total, MRSA swab ordered, sputum culture ordered, IS and flutter valve ordered -continue fluid resuscitation -CT abdomen/pelvis and TTE ordered for septic emboli workup -check TB, aspergillus, coccidioides given concern for cavitary lung disease, lower concern at this time -will need CT chest in 6 months to invasive manager resolution -ID consult in AM, likely will need moth exterminator abx -trend troponin, lactic acid 08/08 clinically improving fever resolved since yesterday leukocytosis resolved blood culture:negative x 48 hours sputum culture: Streptococcus echo: EF 55-60%, no overt vegetations noted given Vanco + Zosyn appreciate Pulm recommendations- does not recommend drainage of L lower lobe abscess due to small size appreciate ID recommendations 08/09- "Based on the cultures isolated from deep tracheal aspirate and BAL at [place] which grew Haemophilus influenzae and the sputum culture isolated at [facility] which grew Streptococcus constellatus, I would recommend stopping all current antibiotics and starting on IV Unasyn. Continue on IV Unasyn today and tomorrow and if he remained afebrile by the morning of 08/10/2024, consider stepping down to oral Augmentin 875/125 TID. He will require at least 4 weeks of oral Augmentin with a repeat CT scan of the chest in 3 weeks from discharge (CT will be ordered by me to be done in [place]). I (Dr. Madison) will also arrange for him to be seen in my clinic within the next 6 weeks." records and imaging studies from [facility] obtained #Right Segmental/Subsegmental PE -PESI score of 106 points making patient high risk PE -segmental and subsegmental PEs in right lung -not requiring oxygen Plan: - BNP: normal - echo: no RV strain -- hemodynamically stable on room air continued IV Heparin -> pt was started on Eliquis, heparin stopped monitor H&H partial hypercoag work up sent- mother has history of PE- will need full work up by Hematology service as outpatient #Anemia, Iron deficiency -- Hg dropped from 8 to 6.4 no overt signs of active bleeding -- transfused 1 unit pRBC Hg improved to 8.2 anemia panel ordered continue to monitor closely 08/08 Hg 7.4 no signs of overt bleed Iron < 10 will order IV Fe Oral Fe also started 08/09 Hgb 7.5 08/11 Hgb 8.4 will need further eval for iron deficiency anemia as outpatient #Subacute HFmid EF (EF 50%) -likely in setting of alcohol use and methadone use (although patient states one time event) Plan: -f/u echo results -current Hgb A1c 5.3%, lipids - LDL 55, TSH 0.55 (wnl) -continue metoprolol, hold lisinopril for now given severe sepsis -- repeat echo: EF 55-60% #Severe BECKA/MDD #Hx of Suicidal Ideation -patient denies suicidal/homicidal ideation at this time -appears anxious but not decompensated Plan: -low threshold for psychiatric consult and sitter -continue home medications 08/09 mood stable denies suicidal ideation #Hypomagnesemia -replete and monitor #Rheumatoid Arthritis -f/u outpatient Admission and Anticipated Discharge Date Admission Date: August 06, 2024 Subjective Pt seen in follow up Recently discharged from [facility] on 08/05/2024, there he was admitted for methadone overdose, intubated Now at [place] with pneumonia, cavitary lesion Currently in NAD states he continues to feel improved overall still having some cough, but improved no abdominal pain, no fevers, chills Discussed w/ CM regarding DC plan - waiting to hear back from [facility]- likely on Thursday Review of Systems Review of Systems: All systems reviewed & are unremarkable except as noted in Subjective Physical Exam Physical Exam: Constitutional: WD/WN young M in NAD HEENT: EOMI, PERRLA Respiratory system: Decreased air entry bilaterally, no wheeze, + mild bibasilar crackles CVS: rrr, no murmurs Abdomen: Soft, nontender, nondistended, + bowel sounds Extremities: + LE edema, moves extremities Neuro: Awake alert oriented x3, speech fluent, answers appropriately, no facial asymmetry, moves extremities Results & Data Results & Data Vital Signs (Past 12 Hours) Vital Signs Temp Pulse Resp BP Pulse Ox O2 Del Method 08/12/24 11:45 36.6 C 86 20 135/91 98 Room Air 08/12/24 08:00 Room Air 08/12/24 07:46 37.1 C 81 17 125/78 97 Room Air Laboratory Results 08/12/24 Range/Units 06:22 Sodium 138 (136-145) mmol/L Potassium 4.2 (3.5-5.1) mmol/L Chloride 104 (98-107) mmol/L Carbon Dioxide 27 (21-32) mmol/L Anion Gap 7 (3-11) BUN 5 L (6-23) mg/dl Creatinine 0.80 (0.6-1.4) mg/dl Est Cr Clr Drug Dosing 111.0 ml/min eGFR 117.63 BUN/Creatinine Ratio 6.3 L (10-20) Glucose 96 (70-99(Fasting)) mg/dl Calcium 9.0 (8.6-10.3) mg/dl Phosphorus 4.9 (2.5-4.9) mg/dl Magnesium 1.6 L (1.7-2.4) mg/dl Medications Administered Current Inpatient Medications Acetaminophen (Acetaminophen 325 Mg Tab) 650 mg PO QID PRN PRN Reason: pain/fever Stop: 09/06/24 04:40 Albuterol (Albut/Ipratrop 3mg/0.5mg Neb 3 Ml Vial) 3 ml NEB Q6R PRN; Protocol PRN Reason: Shortness Of Breath Or Wheezing Stop: 09/05/24 18:28 Amoxicillin/Clavulanate Potassium (Amoxicillin/Clavulanate 875 Mg Tab) 1 tab PO TID [facility] Stop: 09/07/24 21:59 Last Admin: 08/12/24 14:43 Dose: 1 tab Apixaban (Apixaban 5 Mg Tablet) 10 mg PO BID [facility] Stop: 08/16/24 09:01 Last Admin: 08/12/24 08:55 Dose: 10 mg Apixaban (Apixaban 5 Mg Tablet) 5 mg PO BID [facility] Stop: 09/15/24 20:59 Benzonatate (Benzonatate 100 Mg Capsule) 100 mg PO TID PRN PRN Reason: Cough Stop: 09/05/24 15:46 Last Admin: 08/12/24 09:58 Dose: 100 mg Calcium Carbonate (Calcium Carbonate 500 Mg Chewable Tab) 500 mg PO TID PRN PRN Reason: Gastric distress Stop: 09/05/24 15:49 Diclofenac Sodium (Diclofenac Sod 1% Gel 100 Gm Tube) 2 gm EXT Q12 [facility]; Protocol Stop: 09/05/24 20:59 Last Admin: 08/12/24 08:57 Dose: Not Given Escitalopram Oxalate (Escitalopram Oxalate 10 Mg Tab) 5 mg PO DAILY [facility] Stop: 09/06/24 08:59 Last Admin: 08/12/24 08:55 Dose: 5 mg Ferrous Sulfate (Ferrous Sulfate 325 Mg Tab) 325 mg PO BIDM [facility] Stop: 09/07/24 07:59 Last Admin: 08/12/24 08:55 Dose: 325 mg Guaifenesin/Dextromethorphan (Guaifenesin/Dextrom Syrup 100mg/10mg 5ml Udc) 5 ml PO Q6H PRN PRN Reason: Cough Stop: 09/05/24 18:01 Last Admin: 08/10/24 20:27 Dose: 5 ml Hydromorphone HCl (Hydromorphone Inj 0.5 Mg/0.5 Ml Syr) 0.5 mg IV Q4 PRN PRN Reason: Breakthrough Pain Stop: 08/20/24 18:01 Last Admin: 08/09/24 00:09 Dose: 0.5 mg Hydroxyzine HCl (Hydroxyzine Hcl 10 Mg Tab) 10 mg PO QID PRN PRN Reason: Anxiety Stop: 09/06/24 04:59 Lactobacillus Acidophilus (Advanced Probiotic 625 Mg Capsule) 1,250 mg PO DAILY [facility] Stop: 09/06/24 14:59 Last Admin: 08/12/24 08:55 Dose: 1,250 mg Loperamide HCl (Loperamide Hcl 2 Mg Cap) 2 mg PO UD PRN PRN Reason: diarrhea Stop: 09/06/24 15:56 Last Admin: 08/11/24 10:27 Dose: 2 mg Melatonin (Melatonin 3 Mg Tab) 3 mg PO HS PRN PRN Reason: Sleep Stop: 09/05/24 15:46 Menthol (Cough Drop (Sugar Free) Rafael 24 Rafael/1 Box) 1 rafael BUCCAL Q2H PRN PRN Reason: Sore Throat Stop: 09/08/24 00:38 Last Admin: 08/09/24 02:00 Dose: 1 rafael Metoprolol Tartrate (Metoprolol Tartrate 25 Mg Tab) 12.5 mg PO Q12H [facility] Stop: 09/05/24 15:46 Last Admin: 08/12/24 14:43 Dose: 12.5 mg Ondansetron HCl (Ondansetron Inj 2 Mg/Ml 2 Ml Vial) 4 mg IV Q6H PRN PRN Reason: Nausea Stop: 09/05/24 15:46 Last Admin: 08/07/24 10:13 Dose: 4 mg Oxycodone HCl (Oxycodone Hcl Ir 5 Mg Tab (Immediate Release)) 7.5 mg PO Q4 PRN PRN Reason: Severe Pain (Scale 7, 8, 9,10) Stop: 08/20/24 15:46 Last Admin: 08/12/24 07:23 Dose: 7.5 mg Pantoprazole Sodium (Pantoprazole 40 Mg Tab) 40 mg PO BID [facility] Stop: 09/05/24 20:59 Last Admin: 08/12/24 08:56 Dose: 40 mg Polyethylene Glycol (Polyethylene (Miralax) 17 Gm Pack) 17 gm PO DAILY PRN PRN Reason: Constipation Stop: 09/05/24 15:46 Sennosides (Senna 8.6 Mg Tab) 8.6 mg PO DAILY PRN PRN Reason: Constipation Stop: 09/05/24 15:46 Trazodone HCl (Trazodone Hcl 50 Mg Tab) [address] [facility] Stop: 09/05/24 20:59 Last Admin: 08/11/24 20:27 Dose: 50 mg
[2024-08-13 07:08] LABS: Anion Gap 7.0 (3-11); Blood Urea Nitrogen 6.0 mg/dl (6-23); Calcium 9.0 mg/dl (8.6-10.3); Carbon Dioxide 27.0 mmol/L (21-32); Chloride 104.0 mmol/L (98-107); Creatinine Clr Calc Pharmacy 112.4 ml/min; Glucose 94.0 mg/dl (70-99(Fasting)); Magnesium 1.6 mg/dl (1.7-2.4); Potassium 4.0 mmol/L (3.5-5.1); Sodium 138.0 mmol/L (136-145)
[2024-08-13] MEDS: MAGNESIUM SULFATE / D5W 1 GM/100 ML BAG IV ONE (09:18)
--- NOTE | 2024-08-13 16:05 | Hospitalist Progress Note ---
Date of Service August 13, 2024 Assessment & Plan (1) Severe sepsis: (2) Hypomagnesemia: (3) Depression: (4) BECKA (generalized anxiety disorder): (5) Empyema: (6) Cavitary lesion of lung: (7) HAP (hospital-acquired pneumonia): Plan Per previous provider w/ addendum 34 yo male with pmhx of severe BECKA/depression c/b recurrent suicidal ideations, rheumatoid arthritis, hx of external hydrocephalus, hx of alcohol use disorder (in early remission, last early July) who presents for fevers, SOB and chills 2/2 severe sepsis with septic emboli/lung abscesses. #Severe Sepsis #HAP #Lung Abscess w/ Cavitary Lesions #R/o Empyema #R/o Septic Emboli #R/o Infective Endocarditis -patient has fever, tachycardia, tachypnea, and leukocytosis with elevated LA suggestive of severe sepsis -lung imaging concerning for significant for numerous cavitary lesions w/ concern for lung abscess and potential septic emboli -unable to do Hernandez criteria at his time due cultures just drawn, does have 2 minor criteria with splinter hemorrhages and fever -likely 2/2 aspiration pneumonia from recent intubation now worsening, has splinter hemorrhages on exam concerning for potential infectious endocarditis Plan: -pulmonary consult, appreciate recs -broaden abx to vanc/zosyn, get additional blood culture for 3 cultures total, MRSA swab ordered, sputum culture ordered, IS and flutter valve ordered -continue fluid resuscitation -CT abdomen/pelvis and TTE ordered for septic emboli workup -check TB, aspergillus, coccidioides given concern for cavitary lung disease, lower concern at this time -will need CT chest in [address] tester resolution -ID consult in AM, 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 -trend troponin, lactic acid 08/08 clinically improving fever resolved since yesterday leukocytosis resolved blood culture:negative x 48 hours sputum culture: Streptococcus echo: EF 55-60%, no overt vegetations noted given Vanco + Zosyn appreciate Pulm recommendations- does not recommend drainage of L lower lobe abscess due to small size appreciate ID recommendations 08/09- "Based on the cultures isolated from deep tracheal aspirate and BAL at [place] which grew Haemophilus influenzae and the sputum culture isolated at [facility] which grew Streptococcus constellatus, I would recommend stopping all current antibiotics and starting on IV Unasyn. Continue on IV Unasyn today and tomorrow and if he remained afebrile by the morning of 08/10/2024, consider stepping down to oral Augmentin 875/125 TID. He will require at least 4 weeks of oral Augmentin with a repeat CT scan of the chest in 3 weeks from discharge (CT will be ordered by me to be done in [place]). I (Dr. Madison) will also arrange for him to be seen in my clinic within the next 6 weeks." records and imaging studies from [facility] obtained #Right Segmental/Subsegmental PE -PESI score of 106 points making patient high risk PE -segmental and subsegmental PEs in right lung -not requiring oxygen Plan: - BNP: normal - echo: no RV strain -- hemodynamically stable on room air continued IV Heparin -> pt was started on Eliquis, heparin stopped monitor H&H partial hypercoag work up sent- mother has history of PE- will need full work up by Hematology service as outpatient #Anemia, Iron deficiency -- Hg dropped from 8 to 6.4 no overt signs of active bleeding -- transfused 1 unit pRBC Hg improved to 8.2 anemia panel ordered continue to monitor closely 08/08 Hg 7.4 no signs of overt bleed Iron < 10 will order IV Fe Oral Fe also started 08/09 Hgb 7.5 08/11 Hgb 8.4 will need further eval for iron deficiency anemia as outpatient #Subacute HFmid EF (EF 50%) -likely in setting of alcohol use and methadone use (although patient states one time event) Plan: -f/u echo results -current Hgb A1c 5.3%, lipids - LDL 55, TSH 0.55 (wnl) -continue metoprolol, hold lisinopril for now given severe sepsis -- repeat echo: EF 55-60% #Severe BECKA/MDD #Hx of Suicidal Ideation -patient denies suicidal/homicidal ideation at this time -appears anxious but not decompensated Plan: -low threshold for psychiatric consult and sitter -continue home medications 08/09 mood stable denies suicidal ideation #Hypomagnesemia -replete and monitor #Rheumatoid Arthritis -f/u outpatient Admission and Anticipated Discharge Date Admission Date: August 06, 2024 Subjective Pt seen in follow up [place] [facility] there he was admitted for methadone overdose, intubated Now at [place] with pneumonia, cavitary lesion Currently in NAD states he continues to feel improved overall still having some cough, but improved no abdominal pain, no fevers, chills Discussed w/ CM regarding DC plan - waiting to hear back from [facility]- likely on Thursday Review of Systems Review of Systems: All systems reviewed & are unremarkable except as noted in Subjective Physical Exam Physical Exam: Constitutional: WD/WN young M in NAD HEENT: EOMI, PERRLA Respiratory system: Decreased air entry bilaterally, no wheeze, + minimal bibasilar crackles CVS: rrr, no murmurs Abdomen: Soft, nontender, nondistended, + bowel sounds Extremities: + LE edema, moves extremities Neuro: Awake alert oriented x3, speech fluent, answers appropriately, no facial asymmetry, moves extremities Results & Data Results & Data Vital Signs (Past 12 Hours) Vital Signs Temp Pulse Pulse Resp BP BP Pulse Ox 08/13/24 15:27 37.1 C 91 H 18 127/85 96 08/13/24 14:00 72 08/13/24 10:57 36.8 C 89 20 116/80 98 08/13/24 10:00 08/13/24 07:36 36.8 C 94 H 20 113/76 96 08/13/24 07:00 67 08/13/24 07:00 08/13/24 04:29 36.8 C 88 17 118/75 95 Pulse Ox O2 Del Method O2 Del Method 08/13/24 15:27 Room Air 08/13/24 14:00 08/13/24 10:57 Room Air 08/13/24 10:00 95 Room Air 08/13/24 07:36 Room Air 08/13/24 07:00 08/13/24 07:00 Room Air 08/13/24 04:29 Room Air Laboratory Results 08/13/24 08/06/24 Range/Units 06:07 15:38 Sodium 138 (136-145) mmol/L Potassium 4.0 (3.5-5.1) mmol/L Chloride 104 (98-107) mmol/L Carbon Dioxide 27 (21-32) mmol/L Anion Gap 7 (3-11) BUN 6 (6-23) mg/dl Creatinine 0.79 (0.6-1.4) mg/dl Est Cr Clr Drug Dosing 112.4 ml/min eGFR 118.07 BUN/Creatinine Ratio 7.6 L (10-20) Glucose 94 (70-99(Fasting)) mg/dl Calcium 9.0 (8.6-10.3) mg/dl Magnesium 1.6 L (1.7-2.4) mg/dl Coccidioides Ab (ID) Negative (Negative) Aspergillus flavus Ab Negative (Negative) Aspergill fumigatus Ab Negative (Negative) Aspergillus niger Ab Negative (Negative) Medications Administered Current Inpatient Medications Acetaminophen (Acetaminophen 325 Mg Tab) 650 mg PO QID PRN PRN Reason: pain/fever Stop: 09/06/24 04:40 Albuterol (Albut/Ipratrop 3mg/0.5mg Neb 3 Ml Vial) 3 ml NEB Q6R PRN; Protocol PRN Reason: Shortness Of Breath Or Wheezing Stop: 09/05/24 18:28 Amoxicillin/Clavulanate Potassium (Amoxicillin/Clavulanate 875 Mg Tab) 1 tab PO TID JF Stop: 09/07/24 21:59 Last Admin: 08/13/24 14:33 Dose: 1 tab Apixaban (Apixaban 5 Mg Tablet) 10 mg PO BID JF Stop: 08/16/24 09:01 Last Admin: 08/13/24 09:09 Dose: 10 mg Apixaban (Apixaban 5 Mg Tablet) 5 mg PO BID JF Stop: 09/15/24 20:59 Benzonatate (Benzonatate 100 Mg Capsule) 100 mg PO TID PRN PRN Reason: Cough Stop: 09/05/24 15:46 Last Admin: 08/12/24 22:55 Dose: 100 mg Calcium Carbonate (Calcium Carbonate 500 Mg Chewable Tab) 500 mg PO TID PRN PRN Reason: Gastric distress Stop: 09/05/24 15:49 Diclofenac Sodium (Diclofenac Sod 1% Gel 100 Gm Tube) 2 gm EXT Q12 JF; Protoc ol Stop: 09/05/24 20:59 Last Admin: 08/13/24 09:10 Dose: Not Given Escitalopram Oxalate (Escitalopram Oxalate 10 Mg Tab) 5 mg PO DAILY JF Stop: 09/06/24 08:59 Last Admin: 08/13/24 09:08 Dose: 5 mg Ferrous Sulfate (Ferrous Sulfate 325 Mg Tab) 325 mg PO BIDM JF Stop: 09/07/24 07:59 Last Admin: 08/13/24 09:08 Dose: 325 mg Guaifenesin/Dextromethorphan (Guaifenesin/Dextrom Syrup 100mg/10mg 5ml Udc) 5 ml PO Q6H PRN PRN Reason: Cough Stop: 09/05/24 18:01 Last Admin: 08/12/24 21:40 Dose: 5 ml Hydromorphone HCl (Hydromorphone Inj 0.5 Mg/0.5 Ml Syr) 0.5 mg IV Q4 PRN PRN Reason: Breakthrough Pain Stop: 08/20/24 18:01 Last Admin: 08/09/24 00:09 Dose: 0.5 mg Hydroxyzine HCl (Hydroxyzine Hcl 10 Mg Tab) 10 mg PO QID PRN PRN Reason: Anxiety Stop: 09/06/24 04:59 Last Admin: 08/13/24 09:08 Dose: 10 mg Lactobacillus Acidophilus (Advanced Probiotic 625 Mg Capsule) 1,250 mg PO DAILY JF Stop: 09/06/24 14:59 Last Admin: 08/13/24 09:09 Dose: 1,250 mg Loperamide HCl (Loperamide Hcl 2 Mg Cap) 2 mg PO UD PRN PRN Reason: diarrhea Stop: 09/06/24 15:56 Last Admin: 08/11/24 10:27 Dose: 2 mg Melatonin (Melatonin 3 Mg Tab) 3 mg PO HS PRN PRN Reason: Sleep Stop: 09/05/24 15:46 Menthol (Cough Drop (Sugar Free) Rafael 24 Rafael/1 Box) 1 rafael BUCCAL Q2H PRN PRN Reason: Sore Throat Stop: 09/08/24 00:38 Last Admin: 08/09/24 02:00 Dose: 1 rafael Metoprolol Tartrate (Metoprolol Tartrate 25 Mg Tab) 12.5 mg PO Q12H JF Stop: 09/05/24 15:46 Last Admin: 08/13/24 15:28 Dose: 12.5 mg Ondansetron HCl (Ondansetron Inj 2 Mg/Ml 2 Ml Vial) 4 mg IV Q6H PRN PRN Reason: Nausea Stop: 09/05/24 15:46 Last Admin: 08/07/24 10:13 Dose: 4 mg Oxycodone HCl (Oxycodone Hcl Ir 5 Mg Tab (Immediate Release)) 7.5 mg PO Q4 PRN PRN Reason: Severe Pain (Scale 7, 8, 9,10) Stop: 08/20/24 15:46 Last Admin: 08/13/24 11:06 Dose: 7.5 mg Pantoprazole Sodium (Pantoprazole 40 Mg Tab) 40 mg PO BID [facility] Stop: 09/05/24 20:59 Last Admin: 08/13/24 09:08 Dose: 40 mg Polyethylene Glycol (Polyethylene (Miralax) 17 Gm Pack) 17 gm PO DAILY PRN PRN Reason: Constipation Stop: 09/05/24 15:46 Sennosides (Senna 8.6 Mg Tab) 8.6 mg PO DAILY PRN PRN Reason: Constipation Stop: 09/05/24 15:46 Trazodone HCl (Trazodone Hcl 50 Mg Tab) 50 mg PO HS [facility] Stop: 09/05/24 20:59 Last Admin: 08/12/24 21:40 Dose: 50 mg
[2024-08-14] MEDS: GABAPENTIN 100 MG CAP PO STA (04:14)
--- NOTE | 2024-08-14 11:25 | Hospitalist Progress Note ---
Date of Service August 14, 2024 Assessment & Plan (1) Severe sepsis: (2) Hypomagnesemia: (3) Depression: (4) BECKA (generalized anxiety disorder): (5) Empyema: (6) Cavitary lesion of lung: (7) HAP (hospital-acquired pneumonia): Plan Per previous provider w/ addendum 34 yo male with pmhx of severe BECKA/depression c/b recurrent suicidal ideations, rheumatoid arthritis, hx of external hydrocephalus, hx of alcohol use disorder (in early remission, last early July) who presents for fevers, SOB and chills 2/2 severe sepsis with septic emboli/lung abscesses. #Severe Sepsis #HAP #Lung Abscess w/ Cavitary Lesions #R/o Empyema #R/o Septic Emboli #R/o Infective Endocarditis -patient has fever, tachycardia, tachypnea, and leukocytosis with elevated LA suggestive of severe sepsis -lung imaging concerning for significant for numerous cavitary lesions w/ concern for lung abscess and potential septic emboli -unable to do Hernandez criteria at his time due cultures just drawn, does have 2 minor criteria with splinter hemorrhages and fever -likely 2/2 aspiration pneumonia from recent intubation now worsening, has splinter hemorrhages on exam concerning for potential infectious endocarditis Plan: -pulmonary consult, appreciate recs -broaden abx to vanc/zosyn, get additional blood culture for 3 cultures total, MRSA swab ordered, sputum culture ordered, IS and flutter valve ordered -continue fluid resuscitation -CT abdomen/pelvis and TTE ordered for septic emboli workup -check TB, aspergillus, coccidioides given concern for cavitary lung disease, lower concern at this time -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 -ID consult in AM, 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 will need continuous towel roller abx -trend troponin, lactic acid 08/08 clinically improving fever resolved since yesterday leukocytosis resolved blood culture:negative x 48 hours sputum culture: Streptococcus echo: EF 55-60%, no overt vegetations noted given Vanco + Zosyn appreciate Pulm recommendations- does not recommend drainage of L lower lobe abscess due to small size appreciate ID recommendations 08/09- "Based on the cultures isolated from deep tracheal aspirate and BAL at [place] which grew Haemophilus influenzae and the sputum culture isolated at [facility] which grew Streptococcus constellatus, I would recommend stopping all current antibiotics and starting on IV Unasyn. Continue on IV Unasyn today and tomorrow and if he remained afebrile by the morning of 08/10/2024, consider stepping down to oral Augmentin 875/125 TID. He will require at least 4 weeks of oral Augmentin with a repeat CT scan of the chest in 3 weeks from discharge (CT will be ordered by me to be done in [place]). I (Dr. Madison) will also arrange for him to be seen in my clinic within the next 6 weeks." records and imaging studies from [facility] obtained #Right Segmental/Subsegmental PE -PESI score of 106 points making patient high risk PE -segmental and subsegmental PEs in right lung -not requiring oxygen Plan: - BNP: normal - echo: no RV strain -- hemodynamically stable on room air continued IV Heparin -> pt was started on Eliquis, heparin stopped monitor H&H partial hypercoag work up sent- mother has history of PE- will need full work up by Hematology service as outpatient #Anemia, Iron deficiency -- Hg dropped from 8 to 6.4 no overt signs of active bleeding -- transfused 1 unit pRBC Hg improved to 8.2 anemia panel ordered continue to monitor closely 08/08 Hg 7.4 no signs of overt bleed Iron < 10 will order IV Fe Oral Fe also started 08/09 Hgb 7.5 08/11 Hgb 8.4 will need further eval for iron deficiency anemia as outpatient #Subacute HFmid EF (EF 50%) -likely in setting of alcohol use and methadone use (although patient states one time event) Plan: -f/u echo results -current Hgb A1c 5.3%, lipids - LDL 55, TSH 0.55 (wnl) -continue metoprolol, hold lisinopril for now given severe sepsis -- repeat echo: EF 55-60% #Severe BECKA/MDD #Hx of Suicidal Ideation -patient denies suicidal/homicidal ideation at this time -appears anxious but not decompensated Plan: -low threshold for psychiatric consult and sitter -continue home medications 08/09 mood stable denies suicidal ideation #Hypomagnesemia -replete and monitor #Rheumatoid Arthritis -f/u outpatient Admission and Anticipated Discharge Date Admission Date: August 06, 2024 Subjective Pt seen in follow up Recently [place] [facility] [place] there he was admitted for methadone overdose, intubated Now at [place] with pneumonia, cavitary lesion Currently in NAD, on RA states he continues to feel improved overall still having some cough, but improved no abdominal pain, no fevers, chills Discussed w/ CM regarding DC plan - waiting to hear back from [facility]- likely on Thursday Review of Systems Review of Systems: All systems reviewed & are unremarkable except as noted in Subjective Physical Exam Physical Exam: Constitutional: WD/WN young M in NAD HEENT: EOMI, PERRLA Respiratory system: Decreased air entry bilaterally, no wheeze, + minimal bibasilar crackles CVS: rrr, no murmurs Abdomen: Soft, nontender, nondistended, + bowel sounds Extremities: no LE edema, moves extremities Neuro: Awake alert oriented x3, speech fluent, answers appropriately, no facial asymmetry, moves extremities Results & Data Results & Data Vital Signs (Past 12 Hours) Vital Signs Temp Pulse Pulse Resp BP Pulse Ox O2 Del Method 08/14/24 09:28 65 08/14/24 09:00 Room Air 08/14/24 07:34 37.0 C 87 20 114/74 94 Room Air 08/14/24 04:16 36.9 C 85 17 106/66 95 Room Air 08/14/24 00:26 89 08/14/24 00:24 37.0 C 91 H 16 119/76 97 Room Air Medications Administered Current Inpatient Medications Acetaminophen (Acetaminophen 325 Mg Tab) 650 mg PO QID PRN PRN Reason: pain/fever Stop: 09/06/24 04:40 Albuterol (Albut/Ipratrop 3mg/0.5mg Neb 3 Ml Vial) 3 ml NEB Q6R PRN; Protocol PRN Reason: Shortness Of Breath Or Wheezing Stop: 09/05/24 18:28 Amoxicillin/Clavulanate Potassium (Amoxicillin/Clavulanate 875 Mg Tab) 1 tab PO TID [facility] Stop: 09/07/24 21:59 Last Admin: 08/14/24 08:58 Dose: 1 tab Apixaban (Apixaban 5 Mg Tablet) 10 mg PO BID [facility] Stop: 08/16/24 09:01 Last Admin: 08/14/24 08:58 Dose: 10 mg Apixaban (Apixaban 5 Mg Tablet) 5 mg PO BID [facility] Stop: 09/15/24 20:59 Benzonatate (Benzonatate 100 Mg Capsule) 100 mg PO TID PRN PRN Reason: Cough Stop: 09/05/24 15:46 Last Admin: 08/13/24 21:32 Dose: 100 mg Calcium Carbonate (Calcium Carbonate 500 Mg Chewable Tab) 500 mg PO TID PRN PRN Reason: Gastric distress Stop: 09/05/24 15:49 Diclofenac Sodium (Diclofenac Sod 1% Gel 100 Gm Tube) 2 gm EXT Q12 JF; Protocol Stop: 09/05/24 20:59 Last Admin: 08/14/24 08:59 Dose: Not Given Escitalopram Oxalate (Escitalopram Oxalate 10 Mg Tab) 5 mg PO DAILY JF Stop: 09/06/24 08:59 Last Admin: 08/14/24 08:58 Dose: 5 mg Ferrous Sulfate (Ferrous Sulfate 325 Mg Tab) 325 mg PO BIDM JF Stop: 09/07/24 07:59 Last Admin: 08/14/24 08:58 Dose: 325 mg Guaifenesin/Dextromethorphan (Guaifenesin/Dextrom Syrup 100mg/10mg 5ml Udc) 5 ml PO Q6H PRN PRN Reason: Cough Stop: 09/05/24 18:01 Last Admin: 08/12/24 21:40 Dose: 5 ml Hydromorphone HCl (Hydromorphone Inj 0.5 Mg/0.5 Ml Syr) 0.5 mg IV Q4 PRN PRN Reason: Breakthrough Pain Stop: 08/20/24 18:01 Last Admin: 08/09/24 00:09 Dose: 0.5 mg Hydroxyzine HCl (Hydroxyzine Hcl 10 Mg Tab) 10 mg PO QID PRN PRN Reason: Anxiety Stop: 09/06/24 04:59 Last Admin: 08/13/24 09:08 Dose: 10 mg Lactobacillus Acidophilus (Advanced Probiotic 625 Mg Capsule) 1,250 mg PO DAILY JF Stop: 09/06/24 14:59 Last Admin: 08/14/24 08:57 Dose: 1,250 mg Loperamide HCl (Loperamide Hcl 2 Mg Cap) 2 mg PO UD PRN PRN Reason: diarrhea Stop: 09/06/24 15:56 Last Admin: 08/11/24 10:27 Dose: 2 mg Melatonin (Melatonin 3 Mg Tab) 3 mg PO HS PRN PRN Reason: Sleep Stop: 09/05/24 15:46 Menthol (Cough Drop (Sugar Free) Rafael 24 Rafael/1 Box) 1 rafael BUCCAL Q2H PRN PRN Reason: Sore Throat Stop: 09/08/24 00:38 Last Admin: 08/09/24 02:00 Dose: 1 rafael Metoprolol Tartrate (Metoprolol Tartrate 25 Mg Tab) 12.5 mg PO Q12H JF Stop: 09/05/24 15:46 Last Admin: 08/14/24 03:40 Dose: 12.5 mg Ondansetron HCl (Ondansetron Inj 2 Mg/Ml 2 Ml Vial) 4 mg IV Q6H PRN PRN Reason: Nausea Stop: 09/05/24 15:46 Last Admin: 08/07/24 10:13 Dose: 4 mg Oxycodone HCl (Oxycodone Hcl Ir 5 Mg Tab (Immediate Release)) 7.5 mg PO Q4 PRN PRN Reason: Severe Pain (Scale 7, 8, 9,10) Stop: 08/20/24 15:46 Last Admin: 08/13/24 22:32 Dose: 7.5 mg Pantoprazole Sodium (Pantoprazole 40 Mg Tab) 40 mg PO BID JF Stop: 09/05/24 20:59 Last Admin: 08/14/24 08:58 Dose: 40 mg Polyethylene Glycol (Polyethylene (Miralax) 17 Gm Pack) 17 gm PO DAILY PRN PRN Reason: Constipation Stop: 09/05/24 15:46 Sennosides (Senna 8.6 Mg Tab) 8.6 mg PO DAILY PRN PRN Reason: Constipation Stop: 09/05/24 15:46 Trazodone HCl (Trazodone Hcl 50 Mg Tab) 50 mg PO HS JF Stop: 09/05/24 20:59 Last Admin: 08/13/24 21:32 Dose: 50 mg
[2024-08-14] MEDS: MAGNESIUM SULFATE / D5W 1 GM/100 ML BAG IV ONE (12:10)
[2024-08-15] MEDS ORDERED: CAPSAICIN CR 0.075% 60 GM TUBE EXT PRN (01:13)
[2024-08-15] MEDS: GABAPENTIN 100 MG CAP PO STA ×2 (01:19→20:57)
[2024-08-15 08:20] LABS: Hematocrit (blood only) 35.2 % (42.0-52.0); Hemoglobin 10.6 g/dl (14.0-18.0); Mean Corpuscular Hemoglobin 22.9 pg (25.0-34.0); Mean Corpuscular Volume 76.2 fL (80.0-100.0); Platelet Count 516 K/uL (130-400); RDW Standard Deviation 58.4 fL (36.4-46.3); Red Blood Count 4.62 M/uL (4.70-6.10); White Blood Count 8.28 K/ul (4.8-10.8)
[2024-08-15 08:41] LABS: Alanine Aminotransferase 80.0 U/L (7-52); Albumin Globulin Ratio 0.9 (0.9-2); Alkaline Phosphatase 90.0 U/L (34-104); Anion Gap 7.0 (3-11); Bilirubin,Total 0.4 mg/dl (0.2-1.0); Blood Urea Nitrogen 8.0 mg/dl (6-23); Calcium 9.6 mg/dl (8.6-10.3); Carbon Dioxide 28.0 mmol/L (21-32); Chloride 102.0 mmol/L (98-107); Creatinine Clr Calc Pharmacy 113.9 ml/min; Globulin 4.1 gm/dl (2.5-4.0); Glucose 91.0 mg/dl (70-99(Fasting)); Magnesium 1.8 mg/dl (1.7-2.4); Potassium 4.5 mmol/L (3.5-5.1); Sodium 137.0 mmol/L (136-145); Total Protein 7.7 gm/dl (6.0-8.3)
--- NOTE | 2024-08-15 15:43 | Hospitalist Progress Note ---
Date of Service August 15, 2024 Assessment & Plan (1) Severe sepsis: (2) Hypomagnesemia: (3) Depression: (4) BECKA (generalized anxiety disorder): (5) Empyema: (6) Cavitary lesion of lung: (7) HAP (hospital-acquired pneumonia): Plan Per previous provider w/ addendum 34 yo male with pmhx of severe BECKA/depression c/b recurrent suicidal ideations, rheumatoid arthritis, hx of external hydrocephalus, hx of alcohol use disorder (in early remission, last early July) who presents for fevers, SOB and chills 2/2 severe sepsis with septic emboli/lung abscesses. #Severe Sepsis #HAP #Lung Abscess w/ Cavitary Lesions #R/o Empyema #R/o Septic Emboli #R/o Infective Endocarditis -patient has fever, tachycardia, tachypnea, and leukocytosis with elevated LA suggestive of severe sepsis -lung imaging concerning for significant for numerous cavitary lesions w/ concern for lung abscess and potential septic emboli -unable to do Hernandez criteria at his time due cultures just drawn, does have 2 minor criteria with splinter hemorrhages and fever -likely 2/2 aspiration pneumonia from recent intubation now worsening, has splinter hemorrhages on exam concerning for potential infectious endocarditis Plan: -pulmonary consult, appreciate recs -broaden abx to vanc/zosyn, get additional blood culture for 3 cultures total, MRSA swab ordered, sputum culture ordered, IS and flutter valve ordered -continue fluid resuscitation -CT abdomen/pelvis and TTE ordered for septic emboli workup -check TB, aspergillus, coccidioides given concern for cavitary lung disease, lower concern at this time -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 -ID consult in AM, likely will need terminal gauger abx -trend troponin, lactic acid 08/08 clinically improving fever resolved since yesterday leukocytosis resolved blood culture:negative x 48 hours sputum culture: Streptococcus echo: EF 55-60%, no overt vegetations noted given Vanco + Zosyn appreciate Pulm recommendations- does not recommend drainage of L lower lobe abscess due to small size appreciate ID recommendations 08/09- "Based on the cultures isolated from deep tracheal aspirate and BAL at [place] which grew Haemophilus influenzae and the sputum culture isolated at [facility] which grew Streptococcus constellatus, I would recommend stopping all current antibiotics and starting on IV Unasyn. Continue on IV Unasyn today and tomorrow and if he remained afebrile by the morning of 08/10/2024, consider stepping down to oral Augmentin 875/125 TID. He will require at least 4 weeks of oral Augmentin with a repeat CT scan of the chest in 3 weeks from discharge (CT will be ordered by me to be done in [place]). I (Dr. Madison) will also arrange for him to be seen in my clinic within the next 6 weeks." records and imaging studies from [facility] obtained #Right Segmental/Subsegmental PE -PESI score of 106 points making patient high risk PE -segmental and subsegmental PEs in right lung -not requiring oxygen Plan: - BNP: normal - echo: no RV strain -- hemodynamically stable on room air continued IV Heparin -> pt was started on Eliquis, heparin stopped monitor H&H partial hypercoag work up sent- mother has history of PE- will need full work up by Hematology service as outpatient #Anemia, Iron deficiency -- Hg dropped from 8 to 6.4 no overt signs of active bleeding -- transfused 1 unit pRBC Hg improved to 8.2 anemia panel ordered continue to monitor closely 30 Hg 7.4 no signs of overt bleed Iron < 10 will order IV Fe Oral Fe also started 08/09 Hgb 7.5 7/ Hgb 8.4 08/15 Hgb 10.6 will need further eval for iron deficiency anemia as outpatient #Subacute HFmid EF (EF 50%) -likely in setting of alcohol use and methadone use (although patient states one time event) Plan: -f/u echo results -current Hgb A1c 5.3%, lipids - LDL 55, TSH 0.55 (wnl) -continue metoprolol, hold lisinopril for now given severe sepsis -- repeat echo: EF 55-60% #Severe BECKA/MDD #Hx of Suicidal Ideation -patient denies suicidal/homicidal ideation at this time -appears anxious but not decompensated Plan: -low threshold for psychiatric consult and sitter -continue home medications 08/09 mood stable denies suicidal ideation #Hypomagnesemia -replete and monitor #Rheumatoid Arthritis -f/u outpatient Admission and Anticipated Discharge Date Admission Date: August 06, 2024 Subjective Pt seen in follow up Recently discharged from [facility] on 08/05/2024, there he was admitted for methadone overdose, intubated Now at [place] with pneumonia, cavitary lesion Currently in NAD, on RA states he continues to feel improved overall still having some cough, but improved no abdominal pain, no fevers, chills Discussed w/ CM regarding DC plan - waiting to hear back from [facility] Review of Systems Review of Systems: All systems reviewed & are unremarkable except as noted in Subjective Physical Exam Physical Exam: Constitutional: WD/WN young M in NAD HEENT: EOMI, PERRLA Respiratory system: Decreased air entry bilaterally, no wheeze, + minimal bibasilar crackles CVS: rrr, no murmurs Abdomen: Soft, nontender, nondistended, + bowel sounds Extremities: no LE edema, moves extremities Neuro: Awake alert oriented x3, speech fluent, answers appropriately, no facial asymmetry, moves extremities Results & Data Results & Data Vital Signs (Past 12 Hours) Vital Signs Temp Pulse Pulse Resp BP BP Pulse Ox 08/15/24 11:51 36.8 C 83 20 101/67 99 08/15/24 10:00 08/15/24 08:00 87 08/15/24 08:00 08/15/24 07:56 37.2 C 118 H 20 101/69 98 08/15/24 04:22 37.0 C 98 H 16 132/79 97 O2 Del Method O2 Del Method 08/15/24 11:51 Room Air 08/15/24 10:00 Room Air 08/15/24 08:00 08/15/24 08:00 Room Air 08/15/24 07:56 Room Air 08/15/24 04:22 Room Air Laboratory Results 08/15/24 Range/Units 07:59 WBC 8.28 (4.8-10.8) K/ul RBC 4.62 L (4.70-6.10) M/uL Hgb 10.6 L (14.0-18.0) g/dl Hct 35.2 L (42.0-52.0) % MCV 76.2 L (80.0-100.0) fL MCH 22.9 L (25.0-34.0) pg MCHC 30.1 L (32.0-36.0) g/dL RDW Std Deviation 58.4 H (36.4-46.3) fL RDW Coeff of Betsy 22.0 H (11.5-14.5) % Plt Count 516 H (130-400) K/uL MPV 9.2 L (9.4-12.4) fL Sodium 137 (136-145) mmol/L Potassium 4.5 (3.5-5.1) mmol/L Chloride 102 (98-107) mmol/L Carbon Dioxide 28 (21-32) mmol/L Anion Gap 7 (3-11) BUN 8 (6-23) mg/dl Creatinine 0.78 (0.6-1.4) mg/dl Est Cr Clr Drug Dosing 113.9 ml/min eGFR 118.53 BUN/Creatinine Ratio 10.3 (10-20) Glucose 91 (70-99(Fasting)) mg/dl Calcium 9.6 (8.6-10.3) mg/dl Phosphorus 5.4 H (2.5-4.9) mg/dl Magnesium 1.8 (1.7-2.4) mg/dl Total Bilirubin 0.4 (0.2-1.0) mg/dl AST 44 H (13-39) U/L ALT 80 H (7-52) U/L Alkaline Phosphatase 90 (34-104) U/L Total Protein 7.7 (6.0-8.3) gm/dl Albumin 3.6 (3.4-5.0) gm/dl Globulin 4.1 H (2.5-4.0) gm/dl Albumin/Globulin Ratio 0.9 (0.9-2) Medications Administered Current Inpatient Medications Acetaminophen (Acetaminophen 325 Mg Tab) 650 mg PO QID PRN PRN Reason: pain/fever Stop: 09/06/24 04:40 Albuterol (Albut/Ipratrop 3mg/0.5mg Neb 3 Ml Vial) 3 ml NEB Q6R PRN; Protocol PRN Reason: Shortness Of Breath Or Wheezing Stop: 09/05/24 18:28 Amoxicillin/Clavulanate Potassium (Amoxicillin/Clavulanate 875 Mg Tab) 1 tab PO TID [facility] Stop: 09/07/24 21:59 Last Admin: 08/15/24 13:04 Dose: 1 tab Apixaban (Apixaban 5 Mg Tablet) 10 mg PO BID [facility] Stop: 08/16/24 09:01 Last Admin: 08/15/24 08:17 Dose: 10 mg Apixaban (Apixaban 5 Mg Tablet) 5 mg PO BID JF Stop: 09/15/24 20:59 Benzonatate (Benzonatate 100 Mg Capsule) 100 mg PO TID PRN PRN Reason: Cough Stop: 09/05/24 15:46 Last Admin: 08/14/24 19:29 Dose: 100 mg Calcium Carbonate (Calcium Carbonate 500 Mg Chewable Tab) 500 mg PO TID PRN PRN Reason: Gastric distress Stop: 09/05/24 15:49 Capsaicin (Capsaicin Cr 0.075% 60 Gm Tube) 1 appln EXT BID PRN PRN Reason: feet pain Stop: 09/14/24 01:12 Diclofenac Sodium (Diclofenac Sod 1% Gel 100 Gm Tube) 2 gm EXT Q12 JF; Protocol Stop: 09/05/24 20:59 Last Admin: 08/15/24 07:50 Dose: Not Given Escitalopram Oxalate (Escitalopram Oxalate 10 Mg Tab) 5 mg PO DAILY [facility] Stop: 09/06/24 08:59 Last Admin: 08/15/24 08:16 Dose: 5 mg Ferrous Sulfate (Ferrous Sulfate 325 Mg Tab) 325 mg PO BIDM JF Stop: 09/07/24 07:59 Last Admin: 08/15/24 08:17 Dose: 325 mg Guaifenesin/Dextromethorphan (Guaifenesin/Dextrom Syrup 100mg/10mg 5ml Udc) 5 ml PO Q6H PRN PRN Reason: Cough Stop: 09/05/24 18:01 Last Admin: 08/12/24 21:40 Dose: 5 ml Hydromorphone HCl (Hydromorphone Inj 0.5 Mg/0.5 Ml Syr) 0.5 mg IV Q4 PRN PRN Reason: Breakthrough Pain Stop: 08/20/24 18:01 Last Admin: 08/15/24 00:33 Dose: 0.5 mg Hydroxyzine HCl (Hydroxyzine Hcl 10 Mg Tab) 10 mg PO QID PRN PRN Reason: Anxiety Stop: 09/06/24 04:59 Last Admin: 08/13/24 09:08 Dose: 10 mg Lactobacillus Acidophilus (Advanced Probiotic 625 Mg Capsule) 1,250 mg PO DAILY [facility] Stop: 09/06/24 14:59 Last Admin: 08/15/24 08:16 Dose: 1,250 mg Loperamide HCl (Loperamide Hcl 2 Mg Cap) 2 mg PO UD PRN PRN Reason: diarrhea Stop: 09/06/24 15:56 Last Admin: 08/14/24 19:40 Dose: 2 mg Melatonin (Melatonin 3 Mg Tab) 3 mg PO HS PRN PRN Reason: Sleep Stop: 09/05/24 15:46 Menthol (Cough Drop (Sugar Free) Rafael 24 Rafael/1 Box) 1 rafael BUCCAL Q2H PRN PRN Reason: Sore Throat Stop: 09/08/24 00:38 Last Admin: 08/09/24 02:00 Dose: 1 rafael Metoprolol Tartrate (Metoprolol Tartrate 25 Mg Tab) 12.5 mg PO Q12H JF Stop: 09/05/24 15:46 Last Admin: 08/15/24 15:00 Dose: 12.5 mg Ondansetron HCl (Ondansetron Inj 2 Mg/Ml 2 Ml Vial) 4 mg IV Q6H PRN PRN Reason: Nausea Stop: 09/05/24 15:46 Last Admin: 08/07/24 10:13 Dose: 4 mg Oxycodone HCl (Oxycodone Hcl Ir 5 Mg Tab (Immediate Release)) 7.5 mg PO Q4 PRN PRN Reason: Severe Pain (Scale 7, 8, 9,10) Stop: 08/20/24 15:46 Last Admin: 08/14/24 22:35 Dose: 7.5 mg Pantoprazole Sodium (Pantoprazole 40 Mg Tab) 40 mg PO BID JF Stop: 09/05/24 20:59 Last Admin: 08/15/24 08:17 Dose: 40 mg Polyethylene Glycol (Polyethylene (Miralax) 17 Gm Pack) 17 gm PO DAILY PRN PRN Reason: Constipation Stop: 09/05/24 15:46 Sennosides (Senna 8.6 Mg Tab) 8.6 mg PO DAILY PRN PRN Reason: Constipation Stop: 09/05/24 15:46 Trazodone HCl (Trazodone Hcl 50 Mg Tab) 50 mg PO HS JF Stop: 09/05/24 20:59 Last Admin: 08/14/24 19:29 Dose: 50 mg
[2024-08-15] MEDS: MELATONIN 3 MG TAB PO PRN (20:57)
--- NOTE | 2024-08-16 11:28 | Psychiatric Consultation ---
Date of Consultation August 16, 2024 Impression / Recommendations Impression Diagnostically consistent with alcohol use disorder as well as unspecified depression likely a combination of substance-induced as well as MDD and possible BECKA per historical diagnosis. Acute risk of self-harm is low given denial of SI,mood improving, motivated for substance use treatment and has outpatient provider and supports and plans to avoid future alcohol use nor any other substances. Chronic risk of self-harm is moderate given prior near attempt, past psychiatric hospitalizations, and substance use with substance use treatment being the most significant modifiable risk factor to reduce acute and chronic risk. He is not willing for inpatient psychiatric treatment at this time but is motivated for residential substance use treatment and plans to continue with outpatient psychotherapy. Psychiatrically stable for discharge as he denies any acute risk of self-harm nor harm to others, can meet his needs and declines voluntary psychiatric inpatient treatment and doesn't meet 302 criteria. He is motivated for residential substance use treatment but prefers to return home with parents for a few days and then plans to start at [facility]. He declines option to go straight from hospital to there with our help facilitating this. He is agreeable to increasing escitalopram to 10mg daily and gabapentin reasonable as off-label for alcohol use disorder as harm reduction strategy. Reviewed risk of potential for fatal respiratory suppression if he combines gabapentin with alcohol, which he states understanding of. Overall, I spent a total of 80 minutes with this case including review of chart records, review of labwork, review of EKG QTc, direct evaluation of the patient at bedside, counseling the patient, discussion of the patient with the Nurse and with the hospitalist provider, discussion with the psychiatric liason during clinical rounds, and documentation in the electronic health record. (1) Depression: (2) Alcohol use disorder: Plan -Recommend increasing escitalopram to 10mg daily -Option to use gabapentin 100mg TID or 300mg HS for off-label for alcohol use disorder and for his neuropathic pain -He should be offered a script for narcan spray on discharge -Agree with and strongly encourage him to follow through with his plan to attend substance use residential treatment and to follow up with his outpatient psych ologist, both of which he feels comfortable coordinating on his own and prefers to do on his own -Reviewed crisis resources including [phone] and advised to go to nearest ED or call 911 if he doesn't improve, worsens or feels unsafe in the future which he agrees to do -Patient is not an imminent danger to self or others and does not meet criteria for involuntary psychiatric commitment Psych History Identifying Data Kermit is a 34 yo man with a history of depression, anxiety, alcohol use disorder, rheumatoid arthritis, hx of external hydrocephalus admitted for fevers, SOB and chills 2/2 severe sepsis with septic emboli/lung abscesses from the [facility] following recent overdose of methadone. Psychiatry consulted for risk assessment and recommendations regarding need for inpatient psychiatric treatment. Chief Complaint "I'm not suicidal". History of Present Illness Kermit reports recent accidental methadone overdose and subsequent medical complications. He was initially transferred to the [facility] following hospitalization at [facility] for depression with SI for inpatient psychiatric treatment but developed medical issues leading to his current hospitalization. He reports using methadone once, which he combined with alcohol, in an attempt to "feel better" due to increased depression resulting in his accidental overdose. He is unsure if the methadone was laced with other substances. He denies any prior use of methadone or other opioids and states he will never use it again due to his near experience noting "I am never going to mess with methadone again it almost killed me". Kermit reports some ongoing depressive symptoms but denies any hopelessness nor anhedonia nor SI and is very future oriented about wanting to engage with residential substance use treatment at [facility]. Reports his children and family as significant deterrents to suicide and strong reasons for living. He states he was started on Lexapro while seen by psychiatry during his [facility] hospitalization. He denies any side effects from this so far. He has been seeing an outpatient therapist monthly and plans to schedule an appointment to meet with her before he enters residential substance use treatment at [facility] to process recent events. Regarding substance use he feels his alcohol use has been a problem and he wants residential treatment for this. He denies any current cravings. He attributes his recent drinking to "being stupid" and describes it is situational. He has previously taken naltrexone for alcohol use disorder and found it helpful for managing his cravings but does not feel he needs this currently. Kermit reports a history of 1 prior psychiatric hospitalization in July 2023 following an incident where he had held an unloaded gun to his head while intoxicated. He was hospitalized for 3 days in the psychiatric unit at [facility] before being discharged to [facility] for a 14-day treatment program. Currently Kermit denies suicidal ideation or homicidal ideation nor hallucinations. He wants to enter a residential substance use treatment at [facility] at this time aiming for a 28-day program. He does not want to go directly from the hospital there prefers to go home for a little bit and then start. He states he is already spoken with them on the phone and completed their preadmission arrangements and that they will take him at any time once he calls them and they will pick him up. He reports experiencing some neuropathy in his feet which he has found gabapentin beneficial for any is hopeful he will be able to get this on discharge. After discharge he plans to live with his parents who he states of about 3 box from his home in [place] as he feels this will help prevent him from drinking any alcohol until he starts residential treatment in a few days. States he need s to settle some personal matters before he entered treatment. Psychiatric review of symptoms notable for no current suicidal ideation nor homicidal ideation nor auditory or visual hallucinations. He denies current outpatient psychiatrist but has a therapist. He denies any access to guns. He denies any other substance use except alcohol and the one-time use of methadone. Further history per psych liason note from 08/15/2024: "Met with patient this evening for psych consult. Pt. is a 34-year-old male and is alert and oriented x4, calm, pleasant, emotional, and cooperative. His affect is appropriate and congruent, thought process is linear and goal-directed with good insight and intact judgement. Patient was admitted to [facility] from 07/21/24 to 08/05/24 following an overdose on methadone (self-reported ingestion of 80mg). Following discharge from [facility], he was transferred to the [facility] on a 201, and presented to the ED at [facility] on 08/06 for severe sepsis and a right pulmonary embolism. Patient reports a history of alcohol use disorder and has been sober for 10-11 months prior to a relapse triggered by the emotional stress of discovering his had a boyfriend. He began drinking nightly (1 shot of rum with soda) and escalated within two weeks to consuming half a bottle of rum daily. 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 He reached out to someone he knew for the Methadone. He denies any suicidal intent at that time and states I just wanted to feel better and drinking also makes me do stupid things. He denies any drug use and mentions he stopped marijuana for about a year now. He mentions smoking cigars 2 times a week. He reports past rehab treatment at [facility] reh approximately one year ago for alcohol use. During that episode, he reportedly held an unloaded gun to his head while under the influence of Ambien, which he does not recall. He recalls Ambien significantly impaired his memory and cognition. Pt also reports taking Xanax is the past and did not do well with that. He states that he sees a therapist by the name of Katia at [facility] and [facility] in [place], [place]. He has a PCP by the name of Anne-Marie at [place], [place]. Pt. denies any hx. of violence or SIB. He also denies any family history of ETOH use or any psych related illnesses. He rates his depression a 7/10 mainly because he cannot see his children, and his anxiety a 1/10. Currently, the patient is on Lexapro 5mg PO daily (started during admission in [facility]) and trazodone 50mg PO at . He is actively seeking treatment and expresses a clear and goal-oriented desire to return to [facility]. He reports a strong motivation to recover for the sake of his two children and has support from his mother. He denies suicidal ideation or homicidal ideation and expresses no desire to return to the [facility] or any inpatient psychiatric facility. He requests discharging home and so he can pack his belongings and coordinate directly to [facility]. He mentions that he has already spoke to them. Will continue to follow. Pt. has no questions/concerns at this time." Allergies Allergy/AdvReac Type Severity Reaction Status Date / Time naproxen Allergy Rash Verified 08/06/24 13:57 Home Medications Medication Instructions Recorded Confirmed Type acetaminophen 325 mg tablet 650 mg PO Q6H PRN Pain 08/06/24 08/06/24 History (Tylenol) benzonatate 100 mg capsule 100 mg PO TID PRN Cough 08/06/24 08/06/24 History calcium carbonate (Calcium 500) 1,000 mg PO TID PRN Gastric 08/06/24 08/06/24 History Distress dextromethorphan-guaifenesin 10 10 ml PO Q6H PRN Cough 08/06/24 08/06/24 History mg-200 mg/5 mL oral liquid lisinopril 2.5 mg tablet 2.5 mg PO DAILY 08/06/24 08/06/24 History melatonin 3 mg tablet 3 mg PO HS 08/06/24 08/06/24 History metoprolol tartrate 25 mg tablet 12.5 mg PO Q12H 08/06/24 08/06/24 History nicotine (polacrilex) 2 mg gum 4 mg buccal Q4H PRN Each Smoking 08/06/24 08/06/24 History (Nicorette) Break omeprazole 40 mg capsule,delayed 40 mg PO BID 08/06/24 08/06/24 History release oxycodone 5 mg tablet 5 mg PO Q6H PRN Pain 08/06/24 08/06/24 History sennosides 8.6 mg tablet (senna) 8.6 mg PO DAILY PRN Constipation 08/06/24 08/06/24 History trazodone 50 mg tablet 50 mg PO HS 08/06/24 08/06/24 History L.acidop,casei,lactis,rham-B.lact,marbella 1 cap PO DAILY #30 caps 08/16/24 Rx 625 mg (10 billion cell) capsule (Advanced Probiotic) amoxicillin 875 mg-potassium 1 tab PO TID 4 weeks #84 tabs 08/16/24 Rx clavulanate 125 mg tablet apixaban 5 mg tablet (Eliquis) 5 mg PO BID #60 tabs 08/16/24 Rx escitalopram oxalate 10 mg tablet 10 mg PO DAILY #30 tabs 08/16/24 Rx ferrous sulfate 325 mg (65 mg 325 mg PO BIDM #30 tabs 08/16/24 Rx iron) tablet,delayed release gabapentin 100 mg capsule 100 mg PO BID 5 days #10 caps 08/16/24 Rx Patient History Medical History Depression Social History Smoking Status: Current some day smoker Tobacco Type: Cigars Cigarettes Per Day: 1 per week; Hx Alcohol Use: Yes (last drink 6/16, sober before that) Hx Substance Use: No Preferred Language: Upper Sorbian Communication Ability: Effective Legal Activity Adjudicator Required: No Beliefs That Will Affect Care: None Current Living Situation: Alone Feels Safe at Home: Yes Assistive Devices: None Physical Exam Psychiatric: Orientation: alert and oriented x 3 Apperance: appropriately dressed and appropriately groomed Eye Contact: good eye contact Motor Behavior: no abnormal motor movements Speech: normal rate/rhythm/volume of speech Affect: + constricted affect Mood: + depressed mood; no anxious mood Thought Process: goal directed thought process Thought Content: reality based without delusions Suicidal Thoughts: denies suicidal thoughts, denies suicidal plan and denies suicidal intent Homicidal Thoughts: denies homicidal thoughts Hallucinations: no auditory hallucinations and no visual hallucinations Cognition: recent memory grossly intact, remote memory grossly intact, attention grossly intact and language grossly intact Estimated Intelligence: consistent with education level Insight: + fair insight Judgment: + fair judgement Vital Signs (Past 24 Hours): Last Vital Signs Temp 36.7 C 08/16/24 08:02 Pulse 84 08/16/24 10:00 Resp 18 08/16/24 08:02 BP 117/82 08/16/24 08:02 Pulse Ox 99 08/16/24 08:02 O2 Del Method Room Air 08/16/24 09:39 O2 Flow Rate 3 08/07/24 06:46 Results & Data (PSY) Medications Administered Amoxicillin/Clavulanate Potassium (Amoxicillin/Clavulanate 875 Mg Tab) 1 tab PO TID JF Stop: 09/07/24 21:59 Last Admin: 08/16/24 08:59 Dose: 1 tab Documented By: Admin: 08/15/24 20:09 Dose: 1 tab Documented By: Admin: 08/15/24 13:04 Dose: 1 tab Documented By: Admin: 08/15/24 08:16 Dose: 1 tab Documented By: Admin: 08/14/24 19:29 Dose: 1 tab Documented By: Admin: 08/14/24 14:28 Dose: 1 tab Documented By: Admin: 08/14/24 08:58 Dose: 1 tab Documented By: Admin: 08/13/24 21:26 Dose: 1 tab Documented By: Admin: 08/13/24 14:33 Dose: 1 tab Documented By: Admin: 08/13/24 09:08 Dose: 1 tab Documented By: Admin: 08/12/24 20:15 Dose: 1 tab Documented By: Admin: 08/12/24 14:43 Dose: 1 tab Documented By: Admin: 08/12/24 08:54 Dose: 1 tab Documented By: Admin: 08/11/24 20:27 Dose: 1 tab Documented By: Admin: 08/11/24 14:45 Dose: 1 tab Documented By: Admin: 08/11/24 10:13 Dose: 1 tab Documented By: Admin: 08/10/24 21:37 Dose: 1 tab Documented By: RENE Benzonatate (Benzonatate 100 Mg Capsule) 100 mg PO TID PRN PRN Reason: Cough Stop: 09/05/24 15:46 Last Admin: 08/14/24 19:29 Dose: 100 mg Documented By: Admin: 08/13/24 21:32 Dose: 100 mg Documented By: Admin: 08/12/24 22:55 Dose: 100 mg Documented By: Admin: 08/12/24 09:58 Dose: 100 mg Documented By: Admin: 08/11/24 22:52 Dose: 100 mg Documented By: Admin: 08/10/24 20:27 Dose: 100 mg Documented By: Admin: 08/09/24 21:15 Dose: 100 mg Documented By: Admin: 08/09/24 02:01 Dose: 100 mg Documented By: Admin: 08/07/24 21:30 Dose: 100 mg Documented By: Admin: 08/07/24 10:13 Dose: 100 mg Documented By: Admin: 08/07/24 01:39 Dose: 100 mg Documented By: Admin: 08/06/24 16:13 Dose: 100 mg Documented By: DUARTE Diclofenac Sodium (Diclofenac Sod 1% Gel 100 Gm Tube) 2 gm EXT Q12 JF; Protocol Stop: 09/05/24 20:59 Last Admin: 08/16/24 09:00 Dose: Not Given Documented By: Admin: 08/15/24 20:09 Dose: Not Given Documented By: Admin: 08/15/24 07:50 Dose: Not Given Documented By: Admin: 08/14/24 19:28 Dose: Not Given Documented By: Admin: 08/14/24 08:59 Dose: Not Given Documented By: Admin: 08/13/24 21:28 Dose: Not Given Documented By: Admin: 08/13/24 09:10 Dose: Not Given Documented By: Admin: 08/12/24 20:14 Dose: Not Given Documented By: Admin: 08/12/24 08:57 Dose: Not Given Documented By: Admin: 08/11/24 20:28 Dose: 2 gm Documented By: Admin: 08/11/24 10:12 Dose: Not Given Documented By: Admin: 08/10/24 20:29 Dose: Not Given Documented By: Admin: 08/10/24 10:29 Dose: Not Given Documented By: Admin: 08/09/24 21:04 Dose: Not Given Documented By: Admin: 08/09/24 10:12 Dose: Not Given Documented By: Admin: 08/08/24 21:21 Dose: 2 gm Documented By: Admin: 08/08/24 08:55 Dose: 2 gm Documented By: Admin: 08/07/24 21:31 Dose: 2 gm Documented By: Admin: 08/07/24 10:12 Dose: 2 gm Documented By: Admin: 08/06/24 21:46 Dose: 2 gm Documented By: EV Escitalopram Oxalate (Escitalopram Oxalate 10 Mg Tab) 5 mg PO DAILY JF Stop: 09/06/24 08:59 Last Admin: 08/16/24 08:58 Dose: 5 mg Documented By: Admin: 08/15/24 08:16 Dose: 5 mg Documented By: Admin: 08/14/24 08:58 Dose: 5 mg Documented By: Admin: 08/13/24 09:08 Dose: 5 mg Documented By: Admin: 08/12/24 08:55 Dose: 5 mg Documented By: Admin: 08/11/24 10:11 Dose: 5 mg Documented By: Admin: 08/10/24 10:27 Dose: 5 mg Documented By: Admin: 08/09/24 10:12 Dose: 5 mg Documented By: Admin: 08/08/24 08:56 Dose: 5 mg Documented By: Admin: 08/06/24 16:13 Dose: 5 mg Documented By: DUARTE Ferrous Sulfate (Ferrous Sulfate 325 Mg Tab) 325 mg PO BIDM JF Stop: 09/07/24 07:59 Last Admin: 08/16/24 08:59 Dose: 325 mg Documented By: Admin: 08/15/24 16:46 Dose: 325 mg Documented By: GPDagoberto Admin: 08/15/24 08:17 Dose: 325 mg Documented By: Admin: 08/14/24 16:42 Dose: 325 mg Documented By: Admin: 08/14/24 08:58 Dose: 325 mg Documented By: Admin: 08/13/24 17:28 Dose: 325 mg Documented By: Admin: 08/13/24 09:08 Dose: 325 mg Documented By: Admin: 08/12/24 16:41 Dose: 325 mg Documented By: GPDagoberto Admin: 08/12/24 08:55 Dose: 325 mg Documented By: GPDagoberto Admin: 08/11/24 17:12 Dose: 325 mg Documented By: Admin: 08/11/24 10:09 Dose: 325 mg Documented By: Admin: 08/10/24 16:38 Dose: 325 mg Documented By: Admin: 08/10/24 10:27 Dose: 325 mg Documented By: Admin: 08/09/24 16:19 Dose: 325 mg Documented By: Admin: 08/09/24 10:12 Dose: 325 mg Documented By: Admin: 08/08/24 16:25 Dose: 325 mg Documented By: Admin: 08/08/24 08:54 Dose: 325 mg Documented By: JESSE Guaifenesin/Dextromethorphan (Guaifenesin/Dextrom Syrup 100mg/10mg 5ml Udc) 5 ml PO Q6H PRN PRN Reason: Cough Stop: 09/05/24 18:01 Last Admin: 08/15/24 23:13 Dose: 5 ml Documented By: SJEdgar Admin: 08/12/24 21:40 Dose: 5 ml Documented By: Admin: 08/10/24 20:27 Dose: 5 ml Documented By: Admin: 08/10/24 04:26 Dose: 5 ml Documented By: Admin: 08/09/24 21:15 Dose: 5 ml Documented By: Admin: 08/08/24 22:26 Dose: 5 ml Documented By: Admin: 08/08/24 16:21 Dose: 5 ml Documented By: Admin: 08/08/24 02:02 Dose: 5 ml Documented By: Admin: 08/07/24 18:36 Dose: 5 ml Documented By: Admin: 08/07/24 13:16 Dose: 5 ml Documented By: Admin: 08/07/24 04:56 Dose: 5 ml Documented By: Admin: 08/06/24 20:47 Dose: 5 ml Documented By: EV Hydromorphone HCl (Hydromorphone Inj 0.5 Mg/0.5 Ml Syr) 0.5 mg IV Q4 PRN PRN Reason: Breakthrough Pain Stop: 08/20/24 18:01 Last Admin: 08/15/24 23:12 Dose: 0.5 mg Documented By: Admin: 08/15/24 00:33 Dose: 0.5 mg Documented By: Admin: 08/09/24 00:09 Dose: 0.5 mg Documented By: Admin: 08/07/24 18:36 Dose: 0.5 mg Documented By: Admin: 08/07/24 10:13 Dose: 0.5 mg Documented By: Admin: 08/06/24 21:43 Dose: 0.5 mg Documented By: EV Hydroxyzine HCl (Hydroxyzine Hcl 10 Mg Tab) 10 mg PO QID PRN PRN Reason: Anxiety Stop: 09/06/24 04:59 Last Admin: 08/13/24 09:08 Dose: 10 mg Documented By: MARINE Lactobacillus Acidophilus (Advanced Probiotic 625 Mg Capsule) 1,250 mg PO DAILY JF Stop: 09/06/24 14:59 Last Admin: 08/16/24 08:58 Dose: 1,250 mg Documented By: Admin: 08/15/24 08:16 Dose: 1,250 mg Documented By: Admin: 08/14/24 08:57 Dose: 1,250 mg Documented By: Admin: 08/13/24 09:09 Dose: 1,250 mg Documented By: Admin: 08/12/24 08:55 Dose: 1,250 mg Documented By: Admin: 08/11/24 10:12 Dose: 1,250 mg Documented By: Admin: 08/10/24 10:26 Dose: 1,250 mg Documented By: Admin: 08/09/24 10:11 Dose: 1,250 mg Documented By: Admin: 08/08/24 08:56 Dose: 1,250 mg Documented By: Admin: 08/07/24 15:39 Dose: 1,250 mg Documented By: LATISHA Loperamide HCl (Loperamide Hcl 2 Mg Cap) 2 mg PO UD PRN PRN Reason: diarrhea Stop: 09/06/24 15:56 Last Admin: 08/14/24 19:40 Dose: 2 mg Documented By: Admin: 08/11/24 10:27 Dose: 2 mg Documented By: Admin: 08/10/24 20:27 Dose: 2 mg Documented By: Admin: 08/07/24 18:46 Dose: 2 mg Documented By: LATISHA Melatonin (Melatonin 3 Mg Tab) 3 mg PO HS PRN PRN Reason: Sleep Stop: 09/05/24 15:46 Last Admin: 08/15/24 20:57 Dose: 3 mg Documented By: ANGELINE Menthol (Cough Drop (Sugar Free) Stuart 24 Stuart/1 Box) 1 stuart BUCCAL Q2H PRN PRN Reason: Sore Throat Stop: 09/08/24 00:38 Last Admin: 08/09/24 02:00 Dose: 1 stuart Documented By: RENE Metoprolol Tartrate (Metoprolol Tartrate 25 Mg Tab) 12.5 mg PO Q12H JF Stop: 09/05/24 15:46 Last Admin: 08/16/24 04:27 Dose: 12.5 mg Documented By: Admin: 08/15/24 15:00 Dose: 12.5 mg Documented By: Admin: 08/15/24 04:22 Dose: 12.5 mg Documented By: Admin: 08/14/24 16:42 Dose: 12.5 mg Documented By: Admin: 08/14/24 03:40 Dose: 12.5 mg Documented By: Admin: 08/13/24 15:28 Dose: 12.5 mg Documented By: Admin: 08/13/24 04:50 Dose: 12.5 mg Documented By: Admin: 08/12/24 14:43 Dose: 12.5 mg Documented By: Admin: 08/12/24 04:36 Dose: 12.5 mg Documented By: Admin: 08/11/24 14:45 Dose: 12.5 mg Documented By: Admin: 08/11/24 04:34 Dose: Not Given Documented By: Admin: 08/10/24 16:38 Dose: 12.5 mg Documented By: Admin: 08/10/24 03:48 Dose: 12.5 mg Documented By: Admin: 08/09/24 16:18 Dose: 12.5 mg Documented By: Admin: 08/09/24 04:48 Dose: 12.5 mg Documented By: Admin: 08/08/24 14:51 Dose: 12.5 mg Documented By: Admin: 08/08/24 03:01 Dose: 12.5 mg Documented By: Admin: 08/07/24 15:40 Dose: 12.5 mg Documented By: Admin: 08/07/24 03:42 Dose: 12.5 mg Documented By: Admin: 08/06/24 16:14 Dose: 12.5 mg Documented By: DUARTE Ondansetron HCl (Ondansetron Inj 2 Mg/Ml 2 Ml Vial) 4 mg IV Q6H PRN PRN Reason: Nausea Stop: 09/05/24 15:46 Last Admin: 08/07/24 10:13 Dose: 4 mg Documented By: Admin: 08/06/24 21:58 Dose: 4 mg Documented By: EV Oxycodone HCl (Oxycodone Hcl Ir 5 Mg Tab (Immediate Release)) 7.5 mg PO Q4 PRN PRN Reason: Severe Pain (Scale 7, 8, 9,10) Stop: 08/20/24 15:46 Last Admin: 08/16/24 06:16 Dose: 7.5 mg Documented By: Admin: 08/14/24 22:35 Dose: 7.5 mg Documented By: Admin: 08/13/24 22:32 Dose: 7.5 mg Documented By: Admin: 08/13/24 11:06 Dose: 7.5 mg Documented By: Admin: 08/12/24 22:35 Dose: 7.5 mg Documented By: Admin: 08/12/24 07:23 Dose: 7.5 mg Documented By: Admin: 08/11/24 22:52 Dose: 7.5 mg Documented By: Admin: 08/11/24 15:48 Dose: 7.5 mg Documented By: Admin: 08/11/24 10:04 Dose: 7.5 mg Documented By: Admin: 08/10/24 22:57 Dose: 7.5 mg Documented By: Admin: 08/10/24 10:25 Dose: 7.5 mg Documented By: Admin: 08/10/24 03:48 Dose: 7.5 mg Documented By: Admin: 08/09/24 21:02 Dose: 7.5 mg Documented By: Admin: 08/09/24 16:24 Dose: 7.5 mg Documented By: Admin: 08/09/24 10:08 Dose: 7.5 mg Documented By: Admin: 08/08/24 21:32 Dose: 7.5 mg Documented By: Admin: 08/08/24 14:39 Dose: 7.5 mg Documented By: Admin: 08/08/24 09:15 Dose: 7.5 mg Documented By: Admin: 08/08/24 02:09 Dose: 7.5 mg Documented By: Admin: 08/07/24 21:30 Dose: 7.5 mg Documented By: Admin: 08/07/24 13:14 Dose: 7.5 mg Documented By: LATISHA Pantoprazole Sodium (Pantoprazole 40 Mg Tab) 40 mg PO BID JF Stop: 09/05/24 20:59 Last Admin: 08/16/24 08:58 Dose: 40 mg Documented By: Admin: 08/15/24 20:09 Dose: 40 mg Documented By: Admin: 08/15/24 08:17 Dose: 40 mg Documented By: Admin: 08/14/24 19:30 Dose: 40 mg Documented By: Admin: 08/14/24 08:58 Dose: 40 mg Documented By: Admin: 08/13/24 21:27 Dose: 40 mg Documented By: Admin: 08/13/24 09:08 Dose: 40 mg Documented By: Admin: 08/12/24 20:15 Dose: 40 mg Documented By: Admin: 08/12/24 08:56 Dose: 40 mg Documented By: Admin: 08/11/24 20:28 Dose: 40 mg Documented By: Admin: 08/11/24 10:12 Dose: 40 mg Documented By: Admin: 08/10/24 20:29 Dose: 40 mg Documented By: Admin: 08/10/24 10:28 Dose: 40 mg Documented By: Admin: 08/09/24 21:04 Dose: 40 mg Documented By: Admin: 08/09/24 10:11 Dose: 40 mg Documented By: Admin: 08/08/24 21:23 Dose: 40 mg Documented By: Admin: 08/08/24 08:56 Dose: 40 mg Documented By: Admin: 08/07/24 21:30 Dose: 40 mg Documented By: Admin: 08/07/24 10:12 Dose: 40 mg Documented By: KJAditya Admin: 08/06/24 21:46 Dose: 40 mg Documented By: EV Trazodone HCl (Trazodone Hcl 50 Mg Tab) 50 mg PO HS JF Stop: 09/05/24 20:59 Last Admin: 08/15/24 20:57 Dose: 50 mg Documented By: Admin: 08/14/24 19:29 Dose: 50 mg Documented By: Admin: 08/13/24 21:32 Dose: 50 mg Documented By: Admin: 08/12/24 21:40 Dose: 50 mg Documented By: Admin: 08/11/24 20:27 Dose: 50 mg Documented By: Admin: 08/10/24 20:27 Dose: 50 mg Documented By: Admin: 08/09/24 21:02 Dose: 50 mg Documented By: Admin: 08/08/24 21:32 Dose: 50 mg Documented By: Admin: 08/07/24 21:32 Dose: 50 mg Documented By: Admin: 08/06/24 21:46 Dose: 50 mg Documented By: EV Coding Level of Care Code 31071 IN/OBS CONSULT LVL 5,80M Diagnoses Depression F32.A Alcohol use disorder F10.90
--- NOTE | 2024-08-16 13:51 | Discharge Summary ---
Date of Service August 16, 2024 Admission HPI Per Admitting Provider 34 yo male with pmhx of severe BECKA/depression c/b recurrent suicidal ideations, rheumatoid arthritis, hx of external hydrocephalus, hx of alcohol use disorder (in early remission, last early July) who presents for fevers, SOB and chills. Had recent admission (discharged 08/05/2024 from [facility]) for methadone overdose c/b intubation/acute HFmidEF (EF 50%)/shock liver/rhabdomyolysis/hypovolemic shock. Was also involuntary hold at [facility] with 1 to 1 sitter recent admission. Also had acute blood loss anemia (EGD negative on 07/2024, likely chronic iron loss). Was then transferred to the [facility] for intensive inpatient psychiatric treatment on 08/05/2024. Vitals at time of discharge on 08/05/2024 127/78, 101 bpm, 18 rpm, temperature of 99F. Patient seen and examined at bedside. Over past 24 hours has had chills, fevers, shortness of breath, and severe chest pain. States he feels like he is extremely ill. He states the chest pains have been present for several days, but that they were not treated at other facilities. States he would like to go to alcohol rehab after the [facility]. Denies any current drug use. Denies any IV drug use in the past. Current tobacco use, alcohol use disorder in early remission, recent methadone overdose but denies drug use, full code (discussed with patient. Admission Exam Per Admitting Provider Gen: A&O 3 NAD, dyspneic HEENT: NCAT, EOMI, not icteric. External ears normal. No rhinorrhea. Moist mucous membranes. No johnson spots Neck: Supple, full range of motion, no observable masses, No meningeal sign. Lungs: rhonchi mildly throughout lung baum CV: tachycardic, regular Abdomen: Soft, nondistended, No rebound tenderness. MSK: splinter hemorrhages noted on left 3rd and fourth digits , no obvious Osler nodes noted Skin: No rashes, petechiae, lesions. Normal color per patient. Neuro: Normal Gait, Grossly intact. Psych: appears anxious Principal Diagnosis Acute respiratory failure with hypoxia HAP (hospital-acquired pneumonia) Cavitary lesion of lung Pulmonary emboli Discharge Exam Constitutional: WD/WN young M in NAD HEENT: EOMI, PERRLA Respiratory system: Decreased air entry bilaterally, no wheeze, + minimal bibasilar crackles CVS: rrr, no murmurs Abdomen: Soft, nontender, nondistended, + bowel sounds Extremities: no LE edema, moves extremities Neuro: Awake alert oriented x3, speech fluent, answers appropriately, no facial asymmetry, moves extremities Discharge Data Allergies Allergy/AdvReac Type Severity Reaction Status Date / Time naproxen Allergy Rash Verified 08/06/24 13:57 Consultations 08/06/24 13:39 ED Decision to Admit Stat 08/06/24 14:34 Consult Pulmonology Routine 08/07/24 07:34 Consult Infectious Diseases Routine 08/07/24 07:35 Consult Health Information Management Stat 08/07/24 16:57 Consult Orthopedic Surgery Routine 08/15/24 16:02 Consult Psychiatry Routine Ordered Studies 08/06/24 11:13 CT angio chest PE protocol Stat IMPRESSION: 1. Segmental and subsegmental pulmonary emboli within the right lung. 2. Extensive bilateral pulmonary opacities with thick-walled cavitations as above within both the upper and lower lung zones. Dominant large cavitation within the basal left lower lobe with air-fluid level is suggestive of an abscess. Findings are likely infectious or inflammatory with necrotic pneumonia. Pneumonia with septic emboli versus metastatic disease are additional considerations. Follow-up with pulmonology and CT imaging is needed. 3. Mediastinal and hilar lymphadenopathy. 4. Small loculated left-sided pleural effusion with pleural thickening may represent a developing empyema. 08/06/24 13:45 CT Abd and Pelvis [CT abd pelvis oral and IV con] Urgent IMPRESSION: 1. Contrast-enhanced CT of the abdomen and pelvis demonstrates unremarkable normal findings without evidence of acute intra-abdominal or pelvic pathology. 2. Multiple lung parenchymal cavitary lesions mounting to abscess formation with left-sided encysted pleural effusion showing air foci within. Further assessment with CT chest study is advised. 08/07/24 16:57 CT cervical spine wo con Routine CT head/brain wo con Routine CT humerus LT wo con Routine CT shoulder LT wo con Routine Hospital Course (1) Severe sepsis: (2) Hypomagnesemia: (3) Depression: (4) BECKA (generalized anxiety disorder): (5) Empyema: (6) Cavitary lesion of lung: (7) HAP (hospital-acquired pneumonia): Plan 34 yo male with pmhx of severe BECKA/depression c/b recurrent suicidal ideations, rheumatoid arthritis, hx of external hydrocephalus, hx of alcohol use disorder (in early remission, last early July) who presents for fevers, SOB and chills 2/2 severe sepsis with septic emboli/lung abscesses. #Severe Sepsis #HAP #Lung Abscess w/ Cavitary Lesions #R/o Empyema #R/o Septic Emboli #R/o Infective Endocarditis -patient has fever, tachycardia, tachypnea, and leukocytosis with elevated LA suggestive of severe sepsis -lung imaging concerning for significant for numerous cavitary lesions w/ concern for lung abscess and potential septic emboli -unable to do Hernandez criteria at his time due cultures just drawn, does have 2 minor criteria with splinter hemorrhages and fever -likely 2/2 aspiration pneumonia from recent intubation now worsening, has splinter hemorrhages on exam concerning for potential infectious endocarditis Plan: -pulmonary consult, appreciate recs -broaden abx to vanc/zosyn, get additional blood culture for 3 cultures total, MRSA swab ordered, sputum culture ordered, IS and flutter valve ordered -continue fluid resuscitation -CT abdomen/pelvis and TTE ordered for septic emboli workup -check TB, aspergillus, coccidioides given concern for cavitary lung disease, lower concern at this time -will need CT chest in 6 months to security 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 resolution -ID consult in AM, likely will need prison abx -trend troponin, lactic acid 08/08 clinically improving fever resolved since yesterday leukocytosis resolved blood culture:negative x 48 hours sputum culture: Streptococcus echo: EF 55-60%, no overt vegetations noted given Vanco + Zosyn appreciate Pulm recommendations- does not recommend drainage of L lower lobe abscess due to small size appreciate ID recommendations 08/09- "Based on the cultures isolated from deep tracheal aspirate and BAL at [place] which grew Haemophilus influenzae and the sputum culture isolated at [facility] which grew Streptococcus constellatus, I would recommend stopping all current antibiotics and starting on IV Unasyn. Continue on IV Unasyn today and tomorrow and if he remained afebrile by the morning of 08/10/2024, consider stepping down to oral Augmentin 875/125 TID. He will require at least 4 weeks of oral Augmentin with a repeat CT scan of the chest in 3 weeks from discharge (CT will be ordered by me to be done in [place]). I (Dr. Madison) will also arrange for him to be seen in my clinic within the next 6 weeks." records and imaging studies from [facility] obtained 08/16 Pt has been hemodynamically stable, and afebrile. WBC normalized on 08/09/2024. Current WBC 8.2K Blood cultures - Negative Sputum cultx - posit. for Streptococcus constellatus ID consulted and recommendations - as above - pt to follow up w/ Dr. Madison w/ [facility] Pulmonary medicine consulted and following the pt through 08/12/24 Pt was to be discharged to [facility] - but at this time per [facility] - pt is too complex medically and not suicidal. Psychiatry consulted and discussed wit. Patient denies any SI and denies it was SI attempt in a first place. Per psychiatry -ok to discharge home. [facility] Escitalopram to be increased to 10 mg. #Right Segmental/Subsegmental PE -PESI score of 106 points making patient high risk PE -segmental and subsegmental PEs in right lung -not requiring oxygen Plan: - BNP: normal - echo: no RV strain -- hemodynamically stable on room air continued IV Heparin -> pt was started on Eliquis, heparin stopped monitor H&H partial hypercoag work up sent- mother has history of PE- will need full work up by Hematology service as outpatient #Anemia, Iron deficiency -- Hg dropped from 8 to 6.4 no overt signs of active bleeding -- transfused 1 unit pRBC Hg improved to 8.2 anemia panel ordered continue to monitor closely 6/30 Hg 7.4 no signs of overt bleed Iron < 10 will order IV Fe Oral Fe also started 08/09 Hgb 7.5 7/ Hgb 8.4 7 Hgb 10.6 will need further eval for iron deficiency anemia as outpatient #Subacute HFmid EF (EF 50%) -likely in setting of alcohol use and methadone use (although patient states one time event) Plan: -f/u echo results -current Hgb A1c 5.3%, lipids - LDL 55, TSH 0.55 (wnl) -continue metoprolol, lisinopril held given sepsis -- repeat echo: EF 55-60% #Severe BECKA/MDD #Hx of Suicidal Ideation -patient denies suicidal/homicidal ideation at this time -appears anxious but not decompensated Plan: -low threshold for psychiatric consult and sitter -continue home medications 08/09-08/16 mood stable denies suicidal ideation discussed w/ psychiatry as above #Hypomagnesemia -replete and monitor #Rheumatoid Arthritis -f/u outpatient Total Time Total Time Spent Total Time Spent (In Minutes): 40 Discharge Plan Discharge Items Patient Disposition: Home - Self-Care Reason For Visit: SEPTIC EMBOLI Discharge Diagnosis: Acute respiratory failure with hypoxia HAP (hospital-acquired pneumonia) Cavitary lesion of lung Pulmonary emboli Condition on Discharge: Fair Activity: Per Instructions section Non-emergency contact: Primary Care Provider and Specialist Call non-emergency contact if: you have any medication questions and your symptoms worsen Follow-up/Referrals: Alicia Marcano [Primary Care Provider] - Raissa Belle PA-C [Outside Practitioners] - (Date & Time 08/24/2024 1:00 PM Provider: Ina Gaona MD [facility] ) Diet: Regular Addtl Attending Provider Instructions: Follow up with primary care doctor and infectious disease doctor (Dr. Madison with [facility]). The appointment with primary care physician was scheduled for you for 08/24/2024. Take Augmentin 3 times a day, as prescribed. You will need follow up CT chest to ensure resolution. Take Eliquis 5 mg twice a day. Also recommend taking probiotic, while on antibiotic. Your escitalopram was increased to 10 mg daily, as recommended by psychiatrist. Follow up with your primary care doctor and/ or psychiatrist. Pending Studies at Discharge: No Stand-Alone Forms: My ENDOGENX, Smoking Cessation Medications and DC Order Prescriptions: New Eliquis 5 mg Tablet 5 mg PO BID Qty: 60 0RF amoxicillin-pot clavulanate 875-125 mg Tablet 1 tab PO TID 28 Days Qty: 84 0RF Advanced Probiotic 625 mg (10 billion cell) Capsule 1 cap PO DAILY Qty: 30 0RF ferrous sulfate 325 mg (65 mg iron) Tablet,Delayed Release (Dr/Ec) 325 mg PO BIDM Qty: 30 0RF gabapentin 100 mg capsule 100 mg PO BID 5 Days Qty: 10 0RF escitalopram oxalate 10 mg tablet 10 mg PO DAILY Qty: 30 0RF Continued sennosides [senna] 8.6 mg Tablet 8.6 mg PO DAILY PRN (Reason: Constipation) acetaminophen [Tylenol] 325 mg Tablet 650 mg PO Q6H PRN (Reason: Pain) trazodone 50 mg Tablet 50 mg PO HS nicotine (polacrilex) [Nicorette] 2 mg Gum 4 mg BUCCAL Q4H PRN (Reason: Each Smoking Break) dextromethorphan-guaifenesin 10-200 mg/5 mL Liquid 10 ml PO Q6H PRN (Reason: Cough) melatonin 3 mg Tablet 3 mg PO HS calcium carbonate [Calcium 500] 500 mg calcium (1,250 mg) Tablet,Chewable 1,000 mg PO TID PRN (Reason: Gastric Distress) omeprazole 40 mg Capsule,Delayed Release(Dr/Ec) 40 mg PO BID benzonatate [Tessalon Perles] 100 mg Capsule 100 mg PO TID PRN (Reason: Cough) oxycodone 5 mg Tablet 5 mg PO Q6H PRN (Reason: Pain) metoprolol tartrate 25 mg Tablet 12.5 mg PO Q12H Held lisinopril 2.5 mg Tablet 2.5 mg PO DAILY Hold Instructions: Resume on 08/22/24. discuss with your primary care doctor when to resume Discontinued escitalopram oxalate 5 mg Tablet 5 mg PO DAILY Discharge Orders: Discharge Order (Routine); Ordered 08/16/24 Ordered By: Joseph Gillespie Admission Data Admit Date/Time: 08/06/24 14:15 Attending Provider: Joseph Gillespie Admit Provider: Galileo Lin Primary Care Provider: Alicia Marcano Other Providers: Galileo Lin; Demetri Maldonado Carlos M.; Naz Jerez; Frank Beltrán I.; Talib Conley II; Laura Quinones; Rajat Davis; Alfred Starr; Kody Madison; Felipa Giles; Den Sierra; Gabriella Cueto; Enoch Graham; Sherin Hinds; Elizabeth Stoo; Michael Garrison; Laura Vargas,Sanjeev D.; Lynne Garcia; Mumtaz Ashford; Kodak Beltrán; Johanna Little; Gail Rich; Edmund Lunsford; Jaden Penn; Aixa Desai; Darya Marquez; Brittanie Adam; Radha Verma; Bere Reid; Den Diaz; Jaden Kat; Ibis Villagran; Maryanne Curtis; Angie Love.; [facility] Huizar; Naima Tomlin.; Pati Márquez; Arie Gordon; Devonte Frank; Janna Arellano
[2024-08-16] MEDS ORDERED: APIXABAN 5 MG TABLET PO SCH (21:00)
[2024-08-17 22:52] LABS: Factor 5 Mutation NEGATIVE
== END 2024-08-16 19:15 | disposition home or self-care (01) | DRG 871 ==
LOC: ED 10:07 → SUATTDRO 14:15 → 2S 14:15 → 2E 16:21